=== PATIENT | male | born 1935 | race Caucasian/White ===

== ENCOUNTER 2016-07-13 08:23 | Outpatient (CLI) | payer MEDICARE, OTHER | END 2016-07-13 08:24 | disposition home or self-care (01) | DX: M85.88 Other specified disorders of bone density and structure, other site (principal) ==

== ENCOUNTER 2018-08-13 09:30 | Outpatient (CLI) | payer MEDICARE, OTHER ==
[2018-08-13 13:01] LABS: BASOPHILS % (AUTO) 0.7 %; EOSINOPHILS # (AUTO) 0.1 10^3/uL (0.0-0.7); EOSINOPHILS % (AUTO) 2.6 %; HGB - HEMOGLOBIN 15.3 g/dL (14.0-18.0); LYMPHOCYTES # (AUTO) 1.5 10^3/uL (1.5-3.5); LYMPHOCYTES % (AUTO) 27.1 %; MEAN CORPUSCULAR HEMOGLOBIN 31.2 pg (27.0-31.0); MEAN CORPUSCULAR HGB CONC 32.7 g/dL (32.0-36.0); MEAN CORPUSCULAR VOLUME 95.5 fL (80.0-94.0); MONOCYTES # (AUTO) 0.7 10^3/uL (0.0-1.0); MONOCYTES % (AUTO) 11.6 %; NEUTROPHILS # (AUTO) 3.3 10^3/uL (1.5-6.6); PLT - PLATELET COUNT 138 10^3/uL (130-450); RED BLOOD COUNT 4.89 10^6/uL (4.70-6.10); RED CELL DISTRIBUTION WIDTH 14.7 % (12.0-15.0); WHITE BLOOD COUNT 5.6 x10^3/uL (4.8-10.8)
[2018-08-13 13:23] LABS: ALBUMIN 3.6 g/dL (3.2-5.5); ALBUMIN/GLOBULIN RATIO 1.1 (1.0-2.2); ALKALINE PHOSPHATASE 69 IU/L (42-121); ALT ALANINE AMINOTRANSFERASE 18 IU/L (10-60); AST ASPARTATE AMINOTRANSFERASE 20 IU/L (10-42); BILIRUBIN,TOTAL 0.8 mg/dL (0.2-1.0); BUN - BLOOD UREA NITROGEN 16 mg/dL (6-20); CALCIUM 8.9 mg/dL (8.5-10.3); CARBON DIOXIDE - CO2 25 mmol/L (21-32); CHLORIDE 102 mmol/L (101-111); CHOL/HDL RATIO 3.5 (<5.0); CHOLESTEROL 186 mg/dL; CREATININE 1.1 mg/dL (0.6-1.2); GFR - MDRD 64 (>89); GLUCOSE 106 mg/dL (70-100); HDL CHOLESTEROL 53 mg/dL; LDL CHOLESTEROL,CALCULATED 119 mg/dL; LDL/HDL RATIO 2.2 (<3.6); SODIUM 134 mmol/L (135-145); VLDL CHOLESTEROL 14 mg/dL
== END 2018-08-13 09:31 | disposition home or self-care (01) ==
LOC: LAB.WCP 09:30
PROVIDERS: ATTEND Family Medicine
DX: I10 Essential (primary) hypertension (principal); E78.5 Hyperlipidemia, unspecified; E03.9 Hypothyroidism, unspecified
CPT/HCPCS: 36415; 80053; 80061; 83721; 84443; 85025

== ENCOUNTER 2018-08-27 13:14 | Outpatient (CLI) | payer MEDICARE, OTHER ==
--- NOTE | 2018-08-27 16:21 | XRAY Report ---
Reason: LOWER BACK PAIN Procedure Date: 08/27/2018 Accession Number: [id number] / [id number] Procedure: WCP - Lumbar Spine 2 View CPT Code: FULL RESULT: EXAM: LUMBOSACRAL SPINE RADIOGRAPHY EXAM DATE: 08/27/2018 01:33 PM. CLINICAL HISTORY: Lower back pain. COMPARISONS: LUMBAR SPINE 2 VIEW 05/21/2016 9:35 AM. TECHNIQUE: 2 views. FINDINGS: Alignment: Similar appearance of a subtle thoracolumbar S-shaped scoliosis, dextroconvex curvature centered about T12-L1 followed by a compensatory levoconvex curvature around L4. There is also retrolisthesis of L2 on L3, approximately 4 mm. Bones: Five [id number]-[id number] lumbar vertebral bodies are present. The bones are qualitatively osteopenic; this limits evaluation for underlying fractures or masses. Within these limitations, the previously seen L1 compression fracture has progressed, now 75% loss of height anteriorly. Disks: Degenerative disk changes are seen with marginal osteophytosis, most pronounced at L2-L3 and L3-L4. Facets: Severe facet arthropathy at L5 and moderate facet arthropathy at L3-L4, less pronounced in the upper lumbar spine. Sacroiliac Joints: Unremarkable. Soft Tissues: Normal. The visualized bowel gas pattern is normal. IMPRESSION: Qualitative decrease in bone density with interval progression of the compression fracture at L1. Degenerative changes including scoliosis and facet arthropathy. RADIA
== END 2018-08-27 13:15 | disposition home or self-care (01) ==
LOC: DI.WCP 13:14
PROVIDERS: ATTEND Family Medicine
DX: M51.36 Other intervertebral disc degeneration, lumbar region (principal); M47.9 Spondylosis, unspecified; M41.55 Other secondary scoliosis, thoracolumbar region; M43.16 Spondylolisthesis, lumbar region
CPT/HCPCS: 72100

== ENCOUNTER 2019-06-13 10:40 | Outpatient (CLI) | payer MEDICARE, OTHER ==
--- NOTE | 2019-06-13 11:32 | XRAY Report ---
Reason: neck pain. Procedure Date: 06/13/2019 Accession Number: [id number] / [id number] Procedure: XRN - Cervical Spine 2 View CPT Code: Final Report FULL RESULT: EXAM: CERVICAL SPINE RADIOGRAPHY EXAM DATE: 06/13/2019 11:00 AM. CLINICAL HISTORY: Neck pain. Fell on face 06/12/2019. Extreme neck pain. COMPARISONS: None. TECHNIQUE: 4 views. FINDINGS: Alignment: 3 mm grade 1 anterolisthesis of C3 on C4 and also of C4 on C5 vertebral body. Mild grade 1 retrolisthesis of C5 on C6 vertebral body and also of C6 on C7 vertebral body. Bones: The cervical vertebral bodies and posterior elements are well visualized from the skull base through C7-T1. Anterior margin of C2 is not well demonstrated. Disks: Marked loss of C5-C6 and C6-C7 disk space height. Moderate loss of C4-C5 disk space height. Mild loss of C2-C3 disk space height. Facets: Normally aligned. Soft Tissues: Potential soft tissue swelling anterior to C2. IMPRESSION: 1. Advanced lower cervical spine degenerative changes. 2. Anterior margin of C2 is not well demonstrated. Potential adjacent soft tissue swelling. Recommend CT to further assess. RADIA The call report notification system was initiated by Dr. Kavon Monae at 11:26 AM on 06/13/2019. The above call report findings were discussed with TANJA Ruggiero by Dr. Kavon Monae at 11:30 AM on 06/13/2019.
== END 2019-06-13 10:41 | disposition home or self-care (01) ==
LOC: DI.N 10:40
PROVIDERS: ATTEND Family Medicine
DX: M50.321 Other cervical disc degeneration at C4-C5 level (principal)
CPT/HCPCS: 72040

== ENCOUNTER 2019-06-13 11:55 | Outpatient (CLI) | payer MEDICARE, OTHER | END 2019-06-13 11:56 | disposition critical access hospital (66) | LOC: EMS 11:55 | PROVIDERS: ATTEND Surgery | DX: M54.2 Cervicalgia (principal); S00.12XA Contusion of left eyelid and periocular area, initial encounter; S00.11XA Contusion of right eyelid and periocular area, initial encounter; W18.30XA Fall on same level, unspecified, initial encounter | CPT/HCPCS: A0425; A0429 ==

== ENCOUNTER 2019-06-13 12:31 | Emergency (ER) | payer MEDICARE, OTHER ==
--- NOTE | 2019-06-13 12:40 | ED Physician Documentation ---
PD HPI HEAD INJURY - Stated complaint Stated Complaint: GLF - History obtained from History obtained from: Patient, EMS - History of Present Illness Mechanism of head injury: Fell (About 5:00 last night this 84-year-old gentleman who is anticoagulated with Eliquis for atrial fibrillation had a trip and fall going out to his shed landing face first on the ground. There was no loss of consciousness. He was doing okay, but this morning had more severe neck pain especially with movement and went to the clinic where his x-ray of his neck was done concerning for a possible C2 fracture and referred here in cervical spine precautions via EMS for further evaluation and treatment. He denies injuries other than the head and neck. He denies pain medication right now.) Review of Systems Constitutional: denies: Fever, Chills Eyes: reports: Reviewed and negative Nose: reports: Reviewed and negative Throat: reports: Reviewed and negative PD PAST MEDICAL HISTORY - Past Medical History Cardiovascular: High cholesterol, Atrial fibrillation Endocrine/Autoimmune: HyPOthyroidism GI: GERD : None HEENT: None Musculoskeletal: Fibromyalgia Derm: None - Past Surgical History Past Surgical History: Yes General: Hiatal hernia repair Ortho: Hip replacement - Present Medications Home Medications: Ambulatory Orders Medication Instructions Recorded Confirmed Amoxicillin/Potassium Clav 1 each PO BID #20 tablet 05/21/16 [Augmentin 875-125 Tablet] Benazepril HCl 0 mg ORAL BID 05/21/16 05/21/16 Carvedilol 25 mg ORAL BID 05/21/16 05/21/16 HYDROcod/ACETAM 5/325 [[place] 5/325] 1 - 2 ea PO Q6H PRN #15 tablet 05/21/16 Levothyroxine [Synthroid] 25 mcg ORAL DAILY 05/21/16 05/21/16 Warfarin [Coumadin] 5 mg ORAL DAILY 05/21/16 05/21/16 - Allergies Allergies/Adverse Reactions: Allergies Allergy/AdvReac Type Severity Reaction Status Date / Time No Known Drug Allergies Allergy Verified 06/13/19 12:43 - Social History Does the pt smoke?: No Smoking Status: Never smoker Does the pt drink ETOH?: Yes Does the pt have substance abuse?: No - Immunizations Immunizations are current?: Yes PD ED PE NORMAL - Vitals Vital signs reviewed: Yes - General General: Alert and oriented X 3, No acute distress, Other (Hard of hearing) - HEENT HEENT: PERRL, EOMI, Other (Bilateral periorbital ecchymosis and some dried blood in the left nares without septal hematoma or bony tenderness of the face) - Neck Neck: No bony TTP (But maintained in C-spine precautions given advanced age and abnormal x-ray in the clinic.) - Cardiac Cardiac: No murmur, Other (Irregularly irregular) - Respiratory Respiratory: No respiratory distress, Clear bilaterally - Abdomen Abdomen: Soft, Non tender - Back Back: No CVA TTP, No spinal TTP - Derm Derm: Normal color, Warm and dry - Extremities Extremities: No edema, No calf tenderness / cord - Neuro Neuro: Alert and oriented X 3, No motor deficit, No sensory deficit, Normal speech Results - Vitals Vitals: Vital Signs - 24 hr 06/13/19 06/13/19 12:38 13:43 Temperature 36.6 C Heart Rate 73 77 Respiratory 20 14 Rate Blood Pressure 164/109 H 159/85 H O2 Saturation 100 96 Oxygen O2 Source Room air - Labs Labs: Laboratory Tests 06/13/19 06/13/19 06/13/19 12:45 12:45 12:45 WBC 11.4 H RBC 5.17 Hgb 16.5 Hct 48.6 MCV 94.0 MCH 31.9 H MCHC 34.0 RDW 13.3 Plt Count 150 MPV 11.1 Neut # (Auto) 8.6 H Lymph # (Auto) 1.4 L Fountain # (Auto) 1.3 H Eos # (Auto) 0.0 Baso # (Auto) 0.0 Absolute Nucleated RBC 0.00 Nucleated RBC % 0.0 PT 14.0 H INR 1.2 Sodium 137 Potassium 3.8 Chloride 100 L Carbon Dioxide 26 Anion Gap 11.0 BUN 21 H Creatinine 1.2 Estimated GFR (MDRD) 58 L Glucose 118 H Calcium 9.4 Total Bilirubin 1.3 H AST 19 ALT 19 Alkaline Phosphatase 66 Total Protein 7.5 Albumin 3.9 Globulin 3.6 Albumin/Globulin Ratio 1.1 Lipase 33 - Rads (name of study) CT Head Radiology: EMP read contemporaneously (Nasal frx, no ICH) Ct Cspine Radiology: EMP read contemporaneously (Horizontally oriented fractures of the base of the odontoid with 8.5 mm of posterior displacement of the odontoid with respect to the C2 vertebral body worrisome for impingement at the C2 level with canal diameter of 8.9 mm. Otherwise degenerative changes.) CT T spine Radiology: EMP read contemporaneously (L1 anterior 2 column burst frx with 6.2 mm retropulsion. Probably old.) PD MEDICAL DECISION MAKING - ED course ED course: 84-year-old gentleman anticoagulated on Eliquis had a fall last night and concerning x-ray in the clinic for C2 fracture. Strangely he is not really tender but he is neuro intact. Imaging is shown. Accepted by Dr. Rogers to go to [place] via the ER for definitive management of an unstable C2 fracture. He is stable for transport to a higher level of care for definitive fixation of his cervical spine fracture and neurosurgical management. [place] were completed. Departure - Departure Disposition: 02 Transfer Acute Care Hosp Clinical Impression: Concussion Qualifiers: Encounter type: initial encounter Loss of consciousness presence/duration: without LOC Qualified Code(s): S06.0X0A - Concussion without loss of consciousness, initial encounter Closed fracture of cervical vertebra Qualifiers: Encounter type: initial encounter Cervical vertebra fracture level: C2 Fracture morphology: unspecified fracture morphology Fracture alignment: displaced Qualified Code(s): S12.100A - Unspecified displaced fracture of second cervical vertebra, initial encounter for closed fracture Fracture of nasal bone Qualifiers: Encounter type: initial encounter Fracture type: closed Qualified Code(s): S02.2XXA - Fracture of nasal bones, initial encounter for closed fracture Injury of head and neck Qualifiers: Encounter type: initial encounter Qualified Code(s): S09.90XA - Unspecified injury of head, initial encounter Injury of back Qualifiers: Encounter type: initial encounter Qualified Code(s): S39.92XA - Unspecified injury of lower back, initial encounter Condition: Serious
[2019-06-13 12:55] LABS: BASOPHILS % (AUTO) 0.4 %; EOSINOPHILS % (AUTO) 0.4 %; HGB - HEMOGLOBIN 16.5 g/dL (14.0-18.0); LYMPHOCYTES # (AUTO) 1.4 10^3/uL (1.5-3.5); LYMPHOCYTES % (AUTO) 12.2 %; MEAN CORPUSCULAR HEMOGLOBIN 31.9 pg (27.0-31.0); MEAN PLATELET VOLUME 11.1 fL (7.4-11.4); MONOCYTES # (AUTO) 1.3 10^3/uL (0.0-1.0); MONOCYTES % (AUTO) 11.3 %; NEUTROPHILS # (AUTO) 8.6 10^3/uL (1.5-6.6); NEUTROPHILS % (AUTO) 75.3 %; PLT - PLATELET COUNT 150 10^3/uL (130-450); RED BLOOD COUNT 5.17 10^6/uL (4.70-6.10); RED CELL DISTRIBUTION WIDTH 13.3 % (12.0-15.0); WHITE BLOOD COUNT 11.4 x10^3/uL (4.8-10.8)
[2019-06-13 13:06] LABS: INR 1.2 (0.8-1.2)
[2019-06-13 13:07] LABS: ALBUMIN 3.9 g/dL (3.2-5.5); ALBUMIN/GLOBULIN RATIO 1.1 (1.0-2.2); BILIRUBIN,TOTAL 1.3 mg/dL (0.2-1.0); CALCIUM 9.4 mg/dL (8.5-10.3); CREATININE 1.2 mg/dL (0.6-1.2); TOTAL PROTEIN 7.5 g/dL (6.7-8.2)
--- NOTE | 2019-06-13 13:47 | CT Report ---
Reason: head injury Procedure Date: 06/13/2019 Accession Number: [id number] / [id number] Procedure: CT - HEAD WO CPT Code: Final Report FULL RESULT: EXAM: CT HEAD EXAM DATE: 06/13/2019 12:58 PM. CLINICAL HISTORY: Trauma, pain. COMPARISON: HEAD W/O 05/21/2016 10:02 AM. TECHNIQUE: Multiaxial CT images were obtained from the foramen magnum to the vertex. Reformats: Sagittal and coronal. IV contrast: None. In accordance with CT protocol optimization, one or more of the following dose reduction techniques were utilized for this exam: automated exposure control, adjustment of mA and/or KV based on patient size, or use of iterative reconstructive technique. FINDINGS: Parenchyma: No intraparenchymal hemorrhage. No evidence of mass, midline shift, or CT findings of acute infarction. Reece-white differentiation is distinct. Diffuse chronic microangiopathic white matter changes. Extraaxial Spaces: Normal for age. No subdural or epidural collections. Ventricles: The ventricles and cortical sulci are enlarged, consistent with age-related tissue loss. Sinuses and orbits: Air-fluid level in left maxillary sinus and left sphenoid sinus. Fluid and thickening in ethmoid air cells and left frontal sinus. Bones: Comminuted fracture of the nose including nasal alae. Other: Soft tissue swelling. IMPRESSION: 1. Nasal fracture with bleeding into the sinuses. 2. Generalized age-related cortical atrophic changes without evidence of acute intracranial abnormality. RADIA
--- NOTE | 2019-06-13 13:54 | CT Report ---
Reason: neck frx Procedure Date: 06/13/2019 Accession Number: [id number] / [id number] Procedure: CT - THORACIC SPINE WO CPT Code: Final Report FULL RESULT: EXAM: CT THORACIC SPINE WITHOUT CONTRAST EXAM DATE: 06/13/2019 01:14 PM. CLINICAL HISTORY: Neck fracture. COMPARISONS: CHEST 2 VIEW PA/LAT 05/21/2016 9:35 AM images and report from [facility]. TECHNIQUE: Thin-section axial images were acquired of the thoracic spine from C7 to L1 without contrast. Post-processing: Coronal and sagittal reformats. Other: None. In accordance with CT protocol optimization, one or more of the following dose reduction techniques were utilized for this exam: automated exposure control, adjustment of mA and/or KV based on patient size, or use of iterative reconstructive technique. FINDINGS: Alignment: 54 degrees of thoracic kyphosis angle. 21 degrees dextroscoliosis between T4-T5 and T12-L1. Bones: L1 shows an anterior 2-column burst type compression fracture with 6.2 mm of posterior retropulsion. Anterior bridging marginal osteophytes seen at T4-T5, T5-T6, T6-T7, T7-T8 and T8-T9. Disk Levels/Facets: Multilevel facet arthropathy. Multilevel disk space height loss. These are chronic changes. C7-T1: Unremarkable. T1-T2: Unremarkable. T2-T3: Unremarkable. T3-T4: Unremarkable. T4-T5: Unremarkable. T5-T6: Unremarkable. T6-T7: Unremarkable. T7-T8: Unremarkable. T8-T9: Unremarkable. T9-T10: Unremarkable. T10-T11: Unremarkable. T11-T12: Unremarkable. T12-L1: Unremarkable. Musculature: Normal. No fatty atrophy. Other: The visualized lungs, mediastinum, and abdominal cavity are unremarkable. IMPRESSION: 1. L1 shows anterior 2-column superior and inferior burst type compression injury with about 6.2 mm retropulsion. Loss of at least 9% of vertebral body height. 2. Multilevel degenerative changes. No worrisome central or foraminal stenosis in the thoracic spine. RADIA
--- NOTE | 2019-06-13 13:59 | CT Report ---
Reason: facial inj Procedure Date: 06/13/2019 Accession Number: [id number] / [id number] Procedure: CT - MAXILLOFACIAL WO CPT Code: Final Report FULL RESULT: EXAM: CT MAXILLOFACIAL WITHOUT CONTRAST EXAM DATE: 06/13/2019 01:14 PM. CLINICAL HISTORY: Fall with cervical spine fracture and facial injury. COMPARISONS: HEAD W/O 06/13/2019 12:53 PM CERVICAL SPINE W/O 06/13/2019 12:53 PM. TECHNIQUE: Thin-section axial images were acquired of the face without contrast. Post-processing: Coronal and sagittal reformats. Other: None. In accordance with CT protocol optimization, one or more of the following dose reduction techniques were utilized for this exam: automated exposure control, adjustment of mA and/or KV based on patient size, or use of iterative reconstructive technique. FINDINGS: Soft Tissue: There is soft tissue swelling and subcutaneous hemorrhage anterior to the nasal bone. There is soft tissue swelling anterior to the mandible. Orbits: Symmetric and unremarkable. Bones: There is a comminuted fracture of the nasal bone. There is a buckling fracture of the bony nasal septum. There is fluid in the left nasal cavity. Zygoma appears intact. Maxilla and mandible appear intact without fracture. Temporomandibular Joints: The temporomandibular joints are symmetric and normally located. Sinuses: There is layering fluid in the left maxillary sinus and left frontal sinus. There is fluid in secretion in the ethmoid sinuses. There is small fluid in the left sphenoid sinus. Mastoid sinuses appear clear. Other: There is a cervical spine fracture which is described in separate report. IMPRESSION: 1. Comminuted anterior and posterior nasal bone fracture. 2. Fluid in the nasal cavity, ethmoid sinuses, left frontal, maxillary and sphenoid sinuses which is likely related to trauma and hemorrhage. RADIA
--- NOTE | 2019-06-13 14:00 | CT Report ---
Reason: neck injury Procedure Date: 06/13/2019 Accession Number: [id number] / [id number] Procedure: CT - CERVICAL SPINE WO CPT Code: Final Report FULL RESULT: EXAM: CT CERVICAL SPINE WITHOUT CONTRAST DATE: 06/13/2019 12:58 PM. HISTORY: Neck injury. COMPARISONS: CERVICAL SPINE W/O 06/13/2019 12:53 PM CERVICAL SPINE 2 VIEW 06/13/2019 11:06 AM HEAD W/O 05/21/2016 10:02 AM images and report from [facility]. TECHNIQUE: Thin-section axial images were acquired of the cervical spine without contrast. Post-processing: Coronal and sagittal reformats. Other: None. In accordance with CT protocol optimization, one or more of the following dose reduction techniques were utilized for this exam: automated exposure control, adjustment of mA and/or KV based on patient size, or use of iterative reconstructive technique. FINDINGS: Alignment: No scoliosis or spondylolisthesis. Bones: There is a horizontally oriented fracture through the base of the odontoid. There is 8.5 mm of posteriorly displacement of the odontoid with respect to the C2 vertebral body. Series 2 image 48. There is associated 1-1.2 cm of posterior subluxation of both left and right lateral masses of C1 with respect to the articular surface of C2. Series 2 and 56. Series 2 image 41. Interspace Levels/Facets: C1-C2: Anterior arthritic changes. Base of C2 fracture as described. C2-C3: Disk space height loss, marginal arthrosis, severe left foraminal stenosis. C3-C4: Disk space height loss, left-sided facet arthropathy. Severe left foraminal stenosis. Central canal and right neural foramina are normal. C4-C5: Disk space height loss, prominent facets, no stenosis. C5-C6: Marked disk space height loss. Moderate central stenosis and severe bilateral foraminal stenosis. Prominent facets. C6-C7: Disk space height loss, mild central stenosis, severe bilateral foraminal stenosis secondary to arthritic changes at the facets and uncovertebral joints. C7-T1: No disk space height loss otherwise unremarkable. Musculature: Moderate fatty atrophy of the multifidus muscle is present. Other: The paravertebral and prevertebral soft tissues are unremarkable. The lung apices are clear. IMPRESSION: 1. There is a horizontally oriented fractures at the base of the odontoid with 8.5 mm posterior displacement of the odontoid with respect to the C2 vertebral body. This is worrisome for impingement at the C2 level, AP diameter of the canal is 8.9 mm. Series 2 image 47. 2. As described above, multilevel degenerative changes seen elsewhere, most pronounced at C5-C6 and C6-C7. RADIA The critical result notification system was initiated by Dr. Raciel Spears at 01:59 PM on 06/13/2019. The above critical result findings were discussed with Vaibhav Hernandez by Dr. Raciel Spears at 02:03 PM on 06/13/2019.
--- NOTE | 2019-06-13 14:08 | CT Report ---
Reason: neck frx Procedure Date: 06/13/2019 Accession Number: [id number] / [id number] Procedure: CT - LUMBAR SPINE WO CPT Code: Final Report FULL RESULT: EXAM: CT LUMBAR SPINE WITHOUT CONTRAST EXAM DATE: 06/13/2019 01:14 PM. CLINICAL HISTORY: Neck fracture. A ground-level fall last night. COMPARISONS: None. TECHNIQUE: Thin-section axial images were acquired of the lumbar spine from T12 to S1 without contrast. Post-processing: Coronal and sagittal reformats. Other: None. In accordance with CT protocol optimization, one or more of the following dose reduction techniques were utilized for this exam: automated exposure control, adjustment of mA and/or KV based on patient size, or use of iterative reconstructive technique. FINDINGS: Alignment: The lumbar lordosis angle is 60.1 degrees. Levoscoliosis between L1-L2 and L5-S1 measures 18.8 degrees. Bones: Five ctg-plr-spfgney lumbar vertebral bodies are present. L1 shows an anterior 2-column burst-type compression fracture with loss of 90% of vertebral body height and about 7 mm of posterior retropulsion. Fracture line does not appear to involve the posterior elements. Disk Levels/Facets: T12-L1: Unremarkable. L1-L2: Broad-based disk bulge is present. Mild bilateral foraminal stenosis, no central stenosis. L2-L3: Broad-based disk bulge. Prominent facets. No central or foraminal stenosis. L3-L4: Broad-based disk bulge, hypertrophic facets and ligamentum flavum. Moderate to severe central stenosis, chronic. L4-L5: Broad-based disk bulge is seen. Hypertrophic facets. Severe central stenosis. Mild bilateral foraminal stenosis. L5-S1: Mild right broad-based disk bulge. Prominent facets. Musculature: Mild fatty atrophy of the multifidus muscle. Other: Anterior fusion of the left SI joint. IMPRESSION: 1. Lumbar lordosis is 60.1 degrees. Levoscoliosis between L1-L2 and L5-S1 is 18.8 degrees. 2. L1 shows an anterior 2-column burst-type compression fracture with loss of 90% of vertebral body height and about 7 mm posterior retropulsion. 3. L3-L4 shows moderate to severe central stenosis, likely chronic. No foraminal narrowing. 4. L4-L5 shows a broad-based bulge. Severe central stenosis and mild bilateral foraminal stenosis. 5. L5-S1 shows a mild right broad-based bulge. Prominent facets. No stenosis. RADIA
[2019-06-13 15:32] VITALS: BP 172/96
== END 2019-06-13 16:03 | disposition short-term general hospital (02) ==
LOC: EDUNIT# → ED 12:31
DX: S06.0X0A Concussion without loss of consciousness, initial encounter (principal); S12.110A Anterior displaced Type II dens fracture, initial encounter for closed fracture; S02.2XXA Fracture of nasal bones, initial encounter for closed fracture; S32.011A Stable burst fracture of first lumbar vertebra, initial encounter for closed fracture; S39.92XA Unspecified injury of lower back, initial encounter; S00.12XA Contusion of left eyelid and periocular area, initial encounter; S00.11XA Contusion of right eyelid and periocular area, initial encounter; W01.0XXA Fall on same level from slipping, tripping and stumbling without subsequent striking against object, initial encounter; Y93.01 Activity, walking, marching and hiking; Y92.008 Other place in unspecified non-institutional (private) residence as the place of occurrence of the external cause; Z79.01 Long term (current) use of anticoagulants; M50.321 Other cervical disc degeneration at C4-C5 level
CPT/HCPCS: 36415; 70450; 70486; 72040; 72125; 72128; 72131; 80053; 83690; 85025; 85610; 99284; 99285

== ENCOUNTER 2019-06-13 16:06 | Outpatient (CLI) | payer MEDICARE, OTHER | END 2019-06-13 16:07 | disposition short-term general hospital (02) | LOC: EMS 16:06 | PROVIDERS: ATTEND Surgery | DX: S12.100A Unspecified displaced fracture of second cervical vertebra, initial encounter for closed fracture (principal); W19.XXXA Unspecified fall, initial encounter | CPT/HCPCS: A0425; A0428 ==

== ENCOUNTER 2019-11-26 20:00 | Emergency (ER) | payer MEDICARE, OTHER ==
[2019-11-26 20:09] VITALS: BP 151/86
--- NOTE | 2019-11-26 20:47 | ED Physician Documentation ---
History of Present Illness - Stated complaint Stated Complaint: CATHETER LEAKING/Not draining - Chief complaint Chief Complaint: Abd Pain - History obtained from History obtained from: Patient, Family - History of Present Illness Timing: Prior to arrival, Today Pain level max: 3 Pain level now: 3 - Additonal information Additional information: 84-year-old male presents to the emergency department with a urinary catheter that is no longer flowing urine. Catheter has been in place for approximately 3 weeks. Patient denies fevers. Patient however feels uncomfortable in his lower suprapubic area over the course of the last few hours. Patient is scheduled to see his urologist tomorrow morning for procedure on his bladder related to newly diagnosed bladder cancer. Review of Systems Constitutional: denies: Fever, Chills Cardiac: denies: Chest pain / pressure Respiratory: denies: Dyspnea, Cough GI: reports: Abdominal Pain. denies: Nausea, Vomiting, Diarrhea : reports: Dysuria (indwelling wiseman catheter for 3 weeks), Unable to Void Skin: reports: Rash. denies: Lesions Neurologic: denies: Generalized weakness, Focal weakness PD PAST MEDICAL HISTORY - Past Medical History Cardiovascular: High cholesterol, Atrial fibrillation Endocrine/Autoimmune: HyPOthyroidism GI: GERD : None HEENT: None Musculoskeletal: Fibromyalgia Derm: None - Past Surgical History Past Surgical History: Yes General: Hiatal hernia repair Ortho: Hip replacement - Present Medications Home Medications: Ambulatory Orders Medication Instructions Recorded Confirmed Carvedilol 6.25 mg ORAL BID 05/21/16 11/26/19 Levothyroxine [Synthroid] 50 mcg ORAL DAILY 05/21/16 11/26/19 Apixaban [Eliquis] 5 mg DAILY 11/26/19 11/26/19 - Allergies Allergies/Adverse Reactions: Allergies Allergy/AdvReac Type Severity Reaction Status Date / Time No Known Drug Allergies Allergy Verified 11/26/19 20:08 - Social History Does the pt smoke?: No Smoking Status: Never smoker Does the pt drink ETOH?: Yes Does the pt have substance abuse?: No - Immunizations Immunizations are current?: Yes PD ED PE NORMAL - Vitals Vital signs reviewed: Yes - General General: Alert and oriented X 3, No acute distress, Well developed/nourished - HEENT HEENT: Atraumatic - Cardiac Cardiac: RRR, No murmur - Respiratory Respiratory: No respiratory distress - Abdomen Abdomen: Normal bowel sounds - Male Male : Other (indwelling 16 fr catheter noted. No urine draining from catheter. Bladder scan showed 300 ml residual volume. attempted to gently flush catheter with sterile salien, unable to flush wiseman catheter) Results - Vitals Vitals: Vital Signs - 24 hr 11/26/19 20:04 Temperature 36.5 C Heart Rate 85 Respiratory 16 Rate Blood Pressure 151/86 H O2 Saturation 98 Oxygen O2 Source Room air PD MEDICAL DECISION MAKING - ED course ED course: 84 year old male presents with urinary catheter obstruction of his wiseman that has developed over the course of this afternoon. - catheter was not draining urine and we could not flush the wiseman, therefore a sterile 16 kinyarwanda catheter was replaced in sterile fashion - immediately 300ml of yellow urine and sediment drained - will send urine for cx. given presence of indwelling catheter I expect an abnormal UA, therefore will not treat unless urien cx positive - pt felt markedly improved once the catheter was replaced and is stable for discharge Departure - Departure Disposition: 01 Home, Self Care Clinical Impression: Obstruction of indwelling urinary catheter Qualifiers: Encounter type: initial encounter Qualified Code(s): T83.091A - Other mechanical complication of indwelling urethral catheter, initial encounter Condition: Stable Comments: Mario Alberto, I am glad you are feeling better. We replaced your catheter. It is normal to have sediment (white stuff) drain after a catheter has been in place for a while. I am sending the urine for a culture ot make sure no infection is present. Do not miss follow up with your urologist tomorrow
== END 2019-11-26 20:50 | disposition home or self-care (01) ==
LOC: ED 20:00
DX: T83.091A Other mechanical complication of indwelling urethral catheter, initial encounter (principal); Y84.6 Urinary catheterization as the cause of abnormal reaction of the patient, or of later complication, without mention of misadventure at the time of the procedure; I48.91 Unspecified atrial fibrillation; Z79.01 Long term (current) use of anticoagulants
CPT/HCPCS: 81001; 87086; 87181; 99283; 99284

== ENCOUNTER 2020-10-13 08:00 | Outpatient (CLI) | payer MEDICARE, OTHER ==
[2020-10-13 18:29] LABS: BASOPHILS % (AUTO) 0.5 %; EOSINOPHILS % (AUTO) 0.2 %; HCT - HEMATOCRIT 50.4 % (42.0-52.0); HGB - HEMOGLOBIN 16.2 g/dL (14.0-18.0); LYMPHOCYTES % (AUTO) 23.1 %; MEAN CORPUSCULAR HEMOGLOBIN 30.6 pg (27.0-31.0); MEAN CORPUSCULAR HGB CONC 32.1 g/dL (32.0-36.0); MEAN CORPUSCULAR VOLUME 95.1 fL (80.0-94.0); MEAN PLATELET VOLUME 11.9 fL (7.4-11.4); MONOCYTES # (AUTO) 0.8 10^3/uL (0.0-1.0); MONOCYTES % (AUTO) 9.2 %; NEUTROPHILS # (AUTO) 5.8 10^3/uL (1.5-6.6); NEUTROPHILS % (AUTO) 66.7 %; PLT - PLATELET COUNT 143 10^3/uL (130-450); RED CELL DISTRIBUTION WIDTH 13.6 % (12.0-15.0); WHITE BLOOD COUNT 8.8 x10^3/uL (4.8-10.8)
[2020-10-13 19:33] LABS: ALBUMIN 3.9 g/dL (3.2-5.5); ALBUMIN/GLOBULIN RATIO 1.1 (1.0-2.2); ALKALINE PHOSPHATASE 84 IU/L (42-121); ALT ALANINE AMINOTRANSFERASE 22 IU/L (10-60); AST ASPARTATE AMINOTRANSFERASE 20 IU/L (10-42); BUN - BLOOD UREA NITROGEN 17 mg/dL (6-20); CALCIUM 9.5 mg/dL (8.5-10.3); CARBON DIOXIDE - CO2 26 mmol/L (21-32); CHLORIDE 100 mmol/L (101-111); CHOL/HDL RATIO 3.9 (<5.0); CHOLESTEROL 226 mg/dL; CREATININE 1.1 mg/dL (0.6-1.2); GFR - MDRD 64 (>89); GLUCOSE 116 mg/dL (70-100); HDL CHOLESTEROL 58 mg/dL; LDL CHOLESTEROL,CALCULATED 151 mg/dL; LDL/HDL RATIO 2.6 (<3.6); POTASSIUM 4.2 mmol/L (3.5-5.0); SODIUM 134 mmol/L (135-145); TOTAL PROTEIN 7.5 g/dL (6.7-8.2); TRIGLYCERIDES 86 mg/dL; VLDL CHOLESTEROL 17 mg/dL
[2020-10-13 19:47] LABS: THYROID STIMULATING HORMONE 1.63 uIU/mL (0.34-5.60)
== END 2020-10-13 23:59 | disposition home or self-care (01) ==
LOC: LAB.WCP 08:00
PROVIDERS: ATTEND Internal Medicine
DX: I10 Essential (primary) hypertension (principal); E03.9 Hypothyroidism, unspecified
CPT/HCPCS: 36415; 80053; 80061; 83721; 84443; 85025

== ENCOUNTER 2021-10-10 19:37 | Emergency (ER) | payer MEDICARE, OTHER ==
--- OUTSIDE RECORDS SUMMARY | 2021-10-10 19:54 | EXTERNAL MEDICAL SUMMARY RPT | Continuity of Care Document ---
:1935 Author Organization [facility] Address [address] [place] [address] Phone Care Team Providers Name Role Phone Bahman Unavailable Unavailable Allergies No information. Encounters No information. Medications date description facility [id number] Dutasteride 0.5 MG Oral Capsule [facility] [id number] Amoxicillin 500 MG Oral Capsule [facility] Problems date description facility [id number] Dysuria [facility] Procedures date description facility [id number] General [facility] [id number] Finding [facility] [id number] Diagnosis [facility] [id number] [facility] Results No information. Vital Signs date measurement value source [id number] respiration_rate 16 /min [id number] heart_rate 75 /min [id number] BP_systolic 151 mm[Hg] 20210825 BP_diastolic 83 mm[Hg]
--- NOTE | 2021-10-10 19:57 | ED Physician Documentation ---
History of Present Illness - Stated complaint Stated Complaint: head lac,fall - Chief complaint Chief Complaint: Trauma Hd/Nk - History obtained from History obtained from: Patient, Family - History of Present Illness Timing: Today Pain level max: 0 Pain level now: 0 - Additonal information Additional information: Patient is an 86-year-old male who presents to the emergency department after a trip and fall. Sustained a laceration to the right side of the head. Patient is on Eliquis. The fall was around 4 hours prior to arrival. Had has bleeding to the right forehead. Unknown last tetanus shot. No loss of consciousness. No vomiting. Fell on gravel. He states that he noticed the bleeding and swelling to the forehead when he went to take a shower after the fall. No neck or back pain. No vomiting. No numbness or tingling. Review of Systems Constitutional: denies: Fever, Chills GI: denies: Vomiting, Diarrhea : denies: Dysuria Skin: denies: Rash Musculoskeletal: denies: Neck pain, Back pain Neurologic: denies: Headache PD PAST MEDICAL HISTORY - Past Medical History Past Medical History: Yes Cardiovascular: High cholesterol, Atrial fibrillation Endocrine/Autoimmune: HyPOthyroidism GI: GERD : None HEENT: None Musculoskeletal: Fibromyalgia Derm: None - Past Surgical History Past Surgical History: Yes General: Hiatal hernia repair Ortho: Hip replacement - Present Medications Home Medications: Ambulatory Orders Medication Instructions Recorded Confirmed Carvedilol 6.25 mg ORAL BID 05/21/16 11/26/19 Levothyroxine [Synthroid] 50 mcg ORAL DAILY 05/21/16 11/26/19 Apixaban [Eliquis] 5 mg DAILY 11/26/19 11/26/19 - Allergies Allergies/Adverse Reactions: Allergies Allergy/AdvReac Type Severity Reaction Status Date / Time hazelnut Allergy Unknown Verified 10/10/21 19:40 - Living Situation Living Situation: reports: With family Living Arrangement: reports: At home - Social History Does the pt smoke?: No Smoking Status: Never smoker Does the pt drink ETOH?: Yes Does the pt have substance abuse?: No - Immunizations Immunizations are current?: Yes - POLST Patient has POLST: No PD ED PE NORMAL - Vitals Vital signs reviewed: Yes - General General: Alert and oriented X 3, No acute distress, Well developed/nourished - HEENT HEENT: PERRL, Moist mucous membranes, Other (Large hematoma to the right forehead with bleeding. Several abrasions. No significant lacerations. Has periorbital swelling in the right periorbital area with ecchymosis. Otherwise atraumatic exam of the face and head.) - Neck Neck: Supple, no meningeal sign, No bony TTP, Other (History of cervical spine fusion) - Cardiac Cardiac: RRR, Strong equal pulses - Respiratory Respiratory: No respiratory distress, Clear bilaterally - Abdomen Abdomen: Soft, Non tender, Non distended - Back Back: No CVA TTP, No spinal TTP - Derm Derm: Warm and dry - Extremities Extremities: No edema, No calf tenderness / cord, Other (Mild abrasion to the right knee. No bleeding. No bony tenderness. Full range of motion.) - Neuro Neuro: Alert and oriented X 3, lunchroom attendant 2-12 intact, No motor deficit, No sensory deficit, Normal speech Eye Opening: Spontaneous Motor: Obeys Commands Verbal: Oriented GCS Score: 15 - Psych Psych: Normal mood, Normal affect Results - Vitals Vitals: Vital Signs - 24 hr 10/10/21 10/10/21 19:40 21:58 Temperature 36.7 C Heart Rate 95 85 Respiratory 18 18 Rate Blood Pressure 149/87 H 154/94 H O2 Saturation 100 98 Oxygen O2 Source Room air - Rads (name of study) Head CT Radiology: Final report received, EMP read contemporaneously, See rad report Maxillofacial CT Radiology: Final report received, EMP read contemporaneously, See rad report Cervical spine CT Radiology: Final report received, EMP read contemporaneously, See rad report PD MEDICAL DECISION MAKING - ED course Complexity details: reviewed results, re-evaluated patient, considered differential, d/w patient, d/w family ED course: No acute findings on CT scan of the head, maxillofacial and cervical spines. Wounds were cleansed and bandaged. No further bleeding. Tdap given. No in tracranial hemorrhage. No facial fractures. No skull fractures. Cervical spine hardware is intact. Neurovascularly intact. Ambulating without difficulty. Declines pain medication here or for home. Warnings of infection and instructions on wound care given at bedside. Patient and family counseled regarding signs and symptoms for which I believe and urgent re-evaluation would be necessary. Patient with good understanding of and agreement to plan and is comfortable going home at this time This document was made in part using voice recognition software. While efforts are made to proofread this document, sound alike and grammatical errors may occur. Departure - Departure Disposition: 01 Home, Self Care Clinical Impression: Scalp hematoma Qualifiers: Encounter type: initial encounter Qualified Code(s): S00.03XA - Contusion of scalp, initial encounter Facial abrasion Qualifiers: Encounter type: initial encounter Qualified Code(s): S00.81XA - Abrasion of other part of head, initial encounter Condition: Good Instructions: ED Abrasion, ED Head Injury Closed Follow-Up: Kavon Redding MD [Primary Care Provider] - Within 1 week Comments: Your CT scans of your head, face and neck do not show any acute abnormalities. Keep the wounds clean. Return if you worsen. Return if you notice redness, swelling or drainage from the wound. You were given a tetanus shot today. Discharge Date/Time: 10/10/21 21:59
--- NOTE | 2021-10-10 20:25 | CT Report ---
PROCEDURE: HEAD WO INDICATIONS: fall, head/neck injury TECHNIQUE: Noncontrast 4.5 mm thick angled axial sections acquired from the foramen magnum to the vertex. For r adiation dose reduction, the following was used: automated exposure control, adjustment of mA and/or kV according to patient size. COMPARISON: Maxillofacial CT 06/13/2019, head CT 05/21/2016. FINDINGS: Image quality: Good. CSF spaces: Basal cisterns are patent. No extra-axial fluid collections. Ventricles are normal in size and shape. Brain: No midline shift. No intracranial masses or hemorrhage. No area of hypodensity in a vascula r distribution to suggest acute infarction. 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 Intracranial atherosclerotic calcifications. Age-related parenchy mal loss. Skull and face: Right forehead scalp hematoma. No underlying fracture. No suspicious lesion. Prior n rajat bone fracture. Probable prior injury to the right maxillary sinus. Sinuses: Trace mucosal thickening in the right maxillary sinus. Visualized sinuses and mastoids are otherwise clear. IMPRESSION: No acute intracranial abnormality. Right forehead scalp hematoma. No underlying fracture. Chronic microvascular ischemic disease. Reviewed by: Chris Burgos MD on 10/10/2021 8:24 PM PDT Approved by: Chris Burgos MD on 10/10/2021 8:24 PM PDT Station ID: [id number]
[2021-10-10] MEDS ORDERED: LIDOCAINE OINTMENT 5% 35.44 GM TUBE TOP STA (20:26)
--- NOTE | 2021-10-10 20:31 | CT Report ---
PROCEDURE: CERVICAL SPINE WO INDICATIONS: fall, head/neck injury TECHNIQUE: Noncontrast 3 mm thick sections acquired from the skull base to the T4 level. Sagittal and coronal r eformats were then constructed. For radiation dose reduction, the following was used: automated exp osure control, adjustment of mA and/or kV according to patient size. COMPARISON: CT cervical spine 06/13/2019. FINDINGS: Image quality: Excellent. Bones: No acute fractures or dislocations. Visualized superior ribs are intact. Prior dens fractur e. Posterior pedicle screw fixation at C1-C3. There is improved alignment of the dens post fixation. Severe degenerative change in the cervical spine most pronounced at C5-C6. Soft tissues: Prevertebral soft tissues are normal in thickness. No paravertebral hematomas. No ap ical pneumothoraces. IMPRESSION: No acute osseous abnormality. Prior dens fracture and posterior pedicle screw fixation at C1-C3. Reviewed by: Chris Burgos MD on 10/10/2021 8:30 PM PDT Approved by: Chris Burgos MD on 10/10/2021 8:30 PM PDT Station ID: [id number]
--- NOTE | 2021-10-10 20:36 | CT Report ---
PROCEDURE: MAXILLOFACIAL WO INDICATIONS: fall, head/face injury TECHNIQUE: Noncontrast 1.5 mm thick axial images acquired from the mandible through the frontal sinuses, with co ashutosh and sagittal reformatting. For radiation dose reduction, the following was used: automated ex posure control, adjustment of mA and/or kV according to patient size. COMPARISON: Maxillofacial CT 06/13/2019. FINDINGS: Image quality: Good. Bones and teeth: Orbital garcia are intact. Sinus garcia show no acute fracture or deformity. Prior n rajat bone fracture. Suspect prior fracture of the right maxillary sinus anterior wall. Visualized por tions of the mandible demonstrate no fractures or subluxation. Zygomatic arches are intact. Pterygo id plates are intact. Visualized portions of the skull base and auditory canals are intact. Prior C 1-C3 posterior pedicle screw fixation. Sinuses: Mild costal thickening in the right maxillary sinus and ethmoid air cells. Mastoid air cell s are aerated. Soft tissues: Large right forehead scalp hematoma. No enlarged lymph nodes. Vascular: Visualized vascular structures appear normal in the absence of contrast. Bony vascular fo ramina and canals are intact. IMPRESSION: No acute fracture. Large right forehead scalp hematoma. Reviewed by: Chris Burgos MD on 10/10/2021 8:34 PM PDT Approved by: Chris Burgos MD on 10/10/2021 8:34 PM PDT Station ID: [id number]
[2021-10-10] MEDS ORDERED: TETANUS/DIPHTHERIA/PERTUSSIS 0.5 ML SYRINGE IM ONE (20:45)
[2021-10-10 22:06] VITALS: BP 154/94
== END 2021-10-10 21:59 | disposition home or self-care (01) ==
LOC: ED 19:37
DX: S00.03XA Contusion of scalp, initial encounter (principal); S00.81XA Abrasion of other part of head, initial encounter; W01.0XXA Fall on same level from slipping, tripping and stumbling without subsequent striking against object, initial encounter; I48.91 Unspecified atrial fibrillation; Z79.01 Long term (current) use of anticoagulants; Z23 Encounter for immunization; Z71.85 Encounter for immunization safety counseling
CPT/HCPCS: 70450; 70486; 72125; 90715; 99282; 99284; A9270

== ENCOUNTER 2022-05-24 15:11 | Emergency (ER) | payer MEDICARE, OTHER ==
[2022-05-24 15:47] LABS: BASOPHILS # (AUTO) 0.1 10^3/uL (0.0-0.1); BASOPHILS % (AUTO) 0.6 %; EOSINOPHILS # (AUTO) 0.3 10^3/uL (0.0-0.7); EOSINOPHILS % (AUTO) 2.9 %; HCT - HEMATOCRIT 50.3 % (42.0-52.0); HGB - HEMOGLOBIN 16.4 g/dL (14.0-18.0); LYMPHOCYTES # (AUTO) 2.8 10^3/uL (1.5-3.5); MEAN CORPUSCULAR HEMOGLOBIN 30.3 pg (27.0-31.0); MEAN CORPUSCULAR HGB CONC 32.6 g/dL (32.0-36.0); MEAN PLATELET VOLUME 11.5 fL (7.4-11.4); NEUTROPHILS # (AUTO) 4.9 10^3/uL (1.5-6.6); NEUTROPHILS % (AUTO) 54.2 %; PLT - PLATELET COUNT 155 10^3/uL (130-450); RED BLOOD COUNT 5.41 10^6/uL (4.70-6.10); RED CELL DISTRIBUTION WIDTH 14.3 % (12.0-15.0); WHITE BLOOD COUNT 8.9 x10^3/uL (4.8-10.8)
[2022-05-24 15:57] LABS: ALBUMIN 4.3 g/dL (3.2-5.5); ALBUMIN/GLOBULIN RATIO 1.1 (1.0-2.2); BILIRUBIN,TOTAL 0.7 mg/dL (0.2-1.0); CALCIUM 9.7 mg/dL (8.5-10.3); CREATININE 1.1 mg/dL (0.6-1.2); POTASSIUM 4.2 mmol/L (3.5-5.0); TOTAL PROTEIN 8.3 g/dL (6.7-8.2)
[2022-05-24] MEDS ORDERED: iohexoL-300 100 ML VIAL ONE (16:05)
[2022-05-24] MEDS ORDERED: iohexoL-300 100 ML VIAL IVP ONE (16:18)
--- OUTSIDE RECORDS SUMMARY | 2022-05-24 16:21 | EXTERNAL MEDICAL SUMMARY RPT | Continuity of Care Document ---
:1935 Author Organization [facility] Address [address] [place] [address] Phone Care Team Providers Name Role Phone Fabián Ruggiero Unavailable Unavailable Allergies No information. Encounters No information. Functional Status No information. Immunizations No information. Medications No information. Problems No information. Procedures No information. Results/Labs test date author facility value unit interpret ation Result panel 1 (unknown) (no (unknown) (unknown) (no value) (units (unk nown) date) unknown) (unknown) (no (unknown) (unknown) 05/02/22 (units (unkno wn) date) unknown) (unknown) (no (unknown) (unknown) [id number] (units (unkno wn) date) unknown) (unknown) (no (unknown) (unknown) 86 Y/O M (units (unkno wn) date) presents to unknown) clinic for BTS Cystoscopy/PVR. (unknown) (no (unknown) (unknown) Age/Sex: 86 / M (units (unknown) date) Date of Service: unknown) (unknown) (no (unknown) (unknown) Allergies (units (unkn own) date) unknown) (unknown) (no (unknown) (unknown) [place], [place] (units ( unknown) date) [id number] unknown) (unknown) (no (unknown) (unknown) Attending Dr: (units ( unknown) date) Tessa Wood unknown) (unknown) (no (unknown) (unknown) BPH w urinary (units ( unknown) date) obs/LUTS unknown) (unknown) (no (unknown) (unknown) : 1935 (units (unknown) date) Acct:[id number] unknown) (unknown) (no (unknown) (unknown) Dept at (units (unkno wn) date) . unknown) (unknown) (no (unknown) (unknown) Documented By: (units (unknown) date) Tessa Wood unknown) 05/02/22 1008 (unknown) (no (unknown) (unknown) Draft (units (unkno wn) date) unknown) (unknown) (no (unknown) (unknown) HAZELNUTS (units (unkn own) date) Allergy (Severe, unknown) Uncoded 10/26/21 09:42) (unknown) (no (unknown) (unknown) HTN (units (unkno wn) date) (hypertension) unknown) (unknown) (no (unknown) (unknown) History of UTI (units (unknown) date) unknown) (unknown) (no (unknown) (unknown) History of (units (unk nown) date) bladder surgery unknown) (unknown) (no (unknown) (unknown) History of hip (units (unknown) date) replacement unknown) (unknown) (no (unknown) (unknown) 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 (unknown) (no (unknown) (unknown) Incomplete (units (unk nown) date) bladder emptying unknown) (unknown) (no (unknown) (unknown) Intake Note: (units (u nknown) date) unknown) (unknown) (no (unknown) (unknown) Intake performed (units (unknown) date) by: unknown) Clary Lewis (unknown) (no (unknown) (unknown) Intake (units (unkno wn) date) unknown) (unknown) (no (unknown) (unknown) Intake- Clincial (units (unknown) date) Staff unknown) (unknown) (no (unknown) (unknown) [facility] (units (unknown) date) unknown) (unknown) (no (unknown) (unknown) Loc: URO (units (unkno wn) date) unknown) (unknown) (no (unknown) (unknown) Medical History (units (unknown) date) (Reviewed unknown) 10/26/21 @ 10:22 by Tessa Wood MD) (unknown) (no (unknown) (unknown) PFSH (units (unkno wn) date) unknown) (unknown) (no (unknown) (unknown) Patient: (units (unkno wn) date) Mario Alberto Stoddard F unknown) MR#: [id number] (unknown) (no (unknown) (unknown) Reason For Visit (units (unknown) date) unknown) (unknown) (no (unknown) (unknown) S/P ureteral (units (u nknown) date) stent placement unknown) (unknown) (no (unknown) (unknown) Signed By: (units (unk nown) date) unknown) (unknown) (no (unknown) (unknown) Smoking Status: (units (unknown) date) Former smoker unknown) (unknown) (no (unknown) (unknown) Social History (units (unknown) date) (Reviewed unknown) 10/26/21 @ 10:22 by Tessa Wood MD) (unknown) (no (unknown) (unknown) Surgical History (units (unknown) date) (Reviewed unknown) 10/26/21 @ 10:22 by Tessa Wood MD) (unknown) (no (unknown) (unknown) THROAT SWELLING (units (unknown) date) unknown) (unknown) (no (unknown) (unknown) This note may (units ( unknown) date) have been all or unknown) partially generated using voice recognition (unknown) (no (unknown) (unknown) Tobacco Status (units (unknown) date) unknown) (unknown) (no (unknown) (unknown) UTI (urinary (units (u nknown) date) tract infection) unknown) (unknown) (no (unknown) (unknown) Urology Office (units (unknown) date) Visit unknown) (unknown) (no (unknown) (unknown) Visit Reasons: (units (unknown) date) BTS Cysto/PVR unknown) (unknown) (no (unknown) (unknown) alcohol intake: (units (unknown) date) current unknown) (unknown) (no (unknown) (unknown) caffeine: Yes (units ( unknown) date) unknown) (unknown) (no (unknown) (unknown) duasteride (units (unk nown) date) Adverse Reaction unknown) (Unknown, Uncoded 01/24/22 14:23) (unknown) (no (unknown) (unknown) have occurred. (units (unknown) date) If there are any unknown) questions, please contact the Medical Records (unknown) (no (unknown) (unknown) marital status: (units (unknown) date) unknown) (unknown) (no (unknown) (unknown) may occur. (units (unk nown) date) Occasional unknown) wrong-word or 'sound-alike' substitutions may have (unknown) (no (unknown) (unknown) occurred due to (units (unknown) date) the inherent unknown) limitations of voice recognition software. Please (unknown) (no (unknown) (unknown) read the note (units ( unknown) date) carefully and unknown) recognize, using context, where these substitutions (unknown) (no (unknown) (unknown) software. (units (unkn own) date) Although every unknown) effort is made to edit content, hide house supervisor errors Result panel 2 (unknown) (no (unknown) (unknown) (no value) (units (unk nown) date) unknown) (unknown) (no (unknown) (unknown) 10:30 (units (unkno wn) date) unknown) (unknown) (no (unknown) (unknown) 05/02/22 (units (unkno wn) date) unknown) (unknown) (no (unknown) (unknown) [id number] (units (unkno wn) date) unknown) (unknown) (no (unknown) (unknown) 86 Y/O M (units (unkno wn) date) presents to unknown) clinic for BTS Cystoscopy/PVR. (unknown) (no (unknown) (unknown) Age/Sex: 86 / M (units (unknown) date) Date of Service: unknown) (unknown) (no (unknown) (unknown) Allergies (units (unkn own) date) unknown) (unknown) (no (unknown) (unknown) [place], [place] (units ( unknown) date) [address] unknown) (unknown) (no (unknown) (unknown) Attending Dr: (units ( unknown) date) Tessa Wood unknown) (unknown) (no (unknown) (unknown) BP 156/99 H (units (un known) date) unknown) (unknown) (no (unknown) (unknown) BPH w urinary (units ( unknown) date) obs/LUTS unknown) (unknown) (no (unknown) (unknown) Blood Pressure (units (unknown) date) Location Lt unknown) brachial (unknown) (no (unknown) (unknown) : 1935 (units (unknown) date) Acct:[id number] unknown) (unknown) (no (unknown) (unknown) Dept at (units (unkno wn) date) . unknown) (unknown) (no (unknown) (unknown) Documented By: (units (unknown) date) Tessa Wood unknown) 05/02/22 1008 (unknown) (no (unknown) (unknown) Draft (units (unkno wn) date) unknown) (unknown) (no (unknown) (unknown) HAZELNUTS (units (unkn own) date) Allergy (Severe, unknown) Uncoded 05/02/22 10:30) (unknown) (no (unknown) (unknown) HTN (units (unkno wn) date) (hypertension) unknown) (unknown) (no (unknown) (unknown) History of UTI (units (unknown) date) unknown) (unknown) (no (unknown) (unknown) History of (units (unk nown) date) bladder surgery unknown) (unknown) (no (unknown) (unknown) History of hip (units (unknown) date) replacement unknown) (unknown) (no (unknown) (unknown) 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 (unknown) (no (unknown) (unknown) Incomplete (units (unk nown) date) bladder emptying unknown) (unknown) (no (unknown) (unknown) Intake Note: (units (u nknown) date) unknown) (unknown) (no (unknown) (unknown) Intake performed (units (unknown) date) by: unknown) Clary Lewis (unknown) (no (unknown) (unknown) Intake (units (unkno wn) date) unknown) (unknown) (no (unknown) (unknown) Intake- [facility] (units (unknown) date) Staff unknown) (unknown) (no (unknown) (unknown) [facility] (units (unknown) date) unknown) (unknown) (no (unknown) (unknown) Loc: [facility] (units (unkno wn) date) unknown) (unknown) (no (unknown) (unknown) Medical History (units (unknown) date) (Reviewed unknown) 10/26/21 @ 10:22 by Tessa Wood MD) (unknown) (no (unknown) (unknown) Oxygen Delivery (units (unknown) date) Method room air unknown) (unknown) (no (unknown) (unknown) PFSH (units (unkno wn) date) unknown) (unknown) (no (unknown) (unknown) Patient: (units (unkno wn) date) Mario Alberto Stoddard unknown) MR#: [id number] (unknown) (no (unknown) (unknown) Position Sitting (units (unknown) date) unknown) (unknown) (no (unknown) (unknown) Pulse 79 (units (unkno wn) date) unknown) (unknown) (no (unknown) (unknown) Pulse Oximetry (units (unknown) date) (%) 97 unknown) (unknown) (no (unknown) (unknown) Pulse Source (units (u nknown) date) Monitor unknown) (unknown) (no (unknown) (unknown) Reason For Visit (units (unknown) date) unknown) (unknown) (no (unknown) (unknown) Respiration 16 (units (unknown) date) unknown) (unknown) (no (unknown) (unknown) S/P ureteral (units (u nknown) date) stent placement unknown) (unknown) (no (unknown) (unknown) Signed By: (units (unk nown) date) unknown) (unknown) (no (unknown) (unknown) Smoking Status: (units (unknown) date) Former smoker unknown) (unknown) (no (unknown) (unknown) Social History (units (unknown) date) (Reviewed unknown) 10/26/21 @ 10:22 by Tessa Wood MD) (unknown) (no (unknown) (unknown) Surgical History (units (unknown) date) (Reviewed unknown) 10/26/21 @ 10:22 by Tessa Wood MD) (unknown) (no (unknown) (unknown) THROAT SWELLING (units (unknown) date) unknown) (unknown) (no (unknown) (unknown) This note may (units ( unknown) date) have been all or unknown) partially generated using voice recognition (unknown) (no (unknown) (unknown) Tobacco Status (units (unknown) date) unknown) (unknown) (no (unknown) (unknown) UTI (urinary (units (u nknown) date) tract infection) unknown) (unknown) (no (unknown) (unknown) Urology Office (units (unknown) date) Visit unknown) (unknown) (no (unknown) (unknown) Visit Reasons: (units (unknown) date) BTS Cysto/PVR unknown) (unknown) (no (unknown) (unknown) Vitals (units (unkno wn) date) unknown) (unknown) (no (unknown) (unknown) alcohol intake: (units (unknown) date) current unknown) (unknown) (no (unknown) (unknown) caffeine: Yes (units ( unknown) date) unknown) (unknown) (no (unknown) (unknown) duasteride (units (unk nown) date) Adverse Reaction unknown) (Unknown, Uncoded 05/02/22 10:30) (unknown) (no (unknown) (unknown) have occurred. (units (unknown) date) If there are any unknown) questions, please contact the Medical Records (unknown) (no (unknown) (unknown) marital status: (units (unknown) date) unknown) (unknown) (no (unknown) (unknown) may occur. (units (unk nown) date) Occasional unknown) wrong-word or 'sound-alike' substitutions may have (unknown) (no (unknown) (unknown) occurred due to (units (unknown) date) the inherent unknown) limitations of voice recognition software. Please (unknown) (no (unknown) (unknown) read the note (units ( unknown) date) carefully and unknown) recognize, using context, where these substitutions (unknown) (no (unknown) (unknown) software. (units (unkn own) date) Although every unknown) effort is made to edit content, hide house supervisor errors Result panel 3 (unknown) (no (unknown) (unknown) (no value) (units (unk nown) date) unknown) (unknown) (no (unknown) (unknown) /22 (units (unkno wn) date) unknown) (unknown) (no (unknown) (unknown) 10:30 (units (unkno wn) date) unknown) (unknown) (no (unknown) (unknown) 10:32 (units (unkno wn) date) unknown) (unknown) (no (unknown) (unknown) 05/02/22 (units (unkno wn) date) unknown) (unknown) (no (unknown) (unknown) 22 (units (unkno wn) date) unknown) (unknown) (no (unknown) (unknown) [id number] (units (unkno wn) date) unknown) (unknown) (no (unknown) (unknown) 86 Y/O M (units (unkno wn) date) presents to unknown) clinic for BTS Cystoscopy/PVR. (unknown) (no (unknown) (unknown) :32 (units (unkno wn) date) unknown) (unknown) (no (unknown) (unknown) Age/Sex: 86 / M (units (unknown) date) Date of Service: unknown) (unknown) (no (unknown) (unknown) Allergies (units (unkn own) date) unknown) (unknown) (no (unknown) (unknown) [place], [place] (units ( unknown) date) [id number] unknown) (unknown) (no (unknown) (unknown) Assessment + (units (u nknown) date) Plan unknown) (unknown) (no (unknown) (unknown) Attending Dr: (units ( unknown) date) Tessa Wood unknown) (unknown) (no (unknown) (unknown) BP 156/99 H (units (un known) date) unknown) (unknown) (no (unknown) (unknown) BPH w urinary (units ( unknown) date) obs/LUTS unknown) (unknown) (no (unknown) (unknown) Billing- Post (units ( unknown) date) Void Residual: unknown) Post Void Residual- [id number] (unknown) (no (unknown) (unknown) Bladder volume: (units (unknown) date) [id number] unknown) (unknown) (no (unknown) (unknown) Blood Pressure (units (unknown) date) Location Lt unknown) brachial (unknown) (no (unknown) (unknown) Complications: (units (unknown) date) No unknown) (unknown) (no (unknown) (unknown) Consent signed: (units (unknown) date) No unknown) (unknown) (no (unknown) (unknown) : 1935 (units (unknown) date) Acct:[id number] unknown) (unknown) (no (unknown) (unknown) Dept at (units (unkno wn) date) . unknown) (unknown) (no (unknown) (unknown) Documented By: (units (unknown) date) Tessa Wood unknownYolis ORDOÑEZ 05/02/22 1008 (unknown) (no (unknown) (unknown) Draft (units (unkno wn) date) unknown) (unknown) (no (unknown) (unknown) HAZELNUTS (units (unkn own) date) Allergy (Severe, unknown) Uncoded 05/02/22 10:30) (unknown) (no (unknown) (unknown) HTN (units (unkno wn) date) (hypertension) unknown) (unknown) (no (unknown) (unknown) History of UTI (units (unknown) date) unknown) (unknown) (no (unknown) (unknown) History of (units (unk nown) date) bladder surgery unknown) (unknown) (no (unknown) (unknown) History of hip (units (unknown) date) replacement unknown) (unknown) (no (unknown) (unknown) 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 (unknown) (no (unknown) (unknown) Incomplete (units (unk nown) date) bladder emptying unknown) (unknown) (no (unknown) (unknown) Informed consent (units (unknown) date) given: No unknown) (unknown) (no (unknown) (unknown) Intake Note: (units (u nknown) date) unknown) (unknown) (no (unknown) (unknown) Intake performed (units (unknown) date) by: unknown) Clary Lewis (unknown) (no (unknown) (unknown) Intake (units (unkno wn) date) unknown) (unknown) (no (unknown) (unknown) Intake- Clincial (units (unknown) date) Staff unknown) (unknown) (no (unknown) (unknown) [facility] (units (unknown) date) unknown) (unknown) (no (unknown) (unknown) Loc: [facility]RO (units (unkno wn) date) unknown) (unknown) (no (unknown) (unknown) Medical History (units (unknown) date) (Reviewed unknown) 10/26/21 @ 10:22 by Tessa Wood MD) (unknown) (no (unknown) (unknown) Office (units (unkno wn) date) Procedures unknown) (unknown) (no (unknown) (unknown) Orders (units (unkno wn) date) unknown) (unknown) (no (unknown) (unknown) Orders: (units (unkno wn) date) unknown) (unknown) (no (unknown) (unknown) Oxygen Delivery (units (unknown) date) Method room air unknown) (unknown) (no (unknown) (unknown) PFSH (units (unkno wn) date) unknown) (unknown) (no (unknown) (unknown) POC Urine Dip (units ( unknown) date) Today R33.9 - unknown) Retention of urine, unspecified (unknown) (no (unknown) (unknown) Patient: (units (unkno wn) date) Mario Alberto Stoddard unknown) MR#: [id number] (unknown) (no (unknown) (unknown) Photos taken: No (units (unknown) date) unknown) (unknown) (no (unknown) (unknown) Position Sitting (units (unknown) date) unknown) (unknown) (no (unknown) (unknown) Procedure (units (unkn own) date) performed by: unknown) Clary Lewis (unknown) (no (unknown) (unknown) Pulse 79 (units (unkno wn) date) unknown) (unknown) (no (unknown) (unknown) Pulse Oximetry (units (unknown) date) (%) 97 unknown) (unknown) (no (unknown) (unknown) Pulse Source (units (u nknown) date) Monitor unknown) (unknown) (no (unknown) (unknown) Reason For Visit (units (unknown) date) unknown) (unknown) (no (unknown) (unknown) Residual: post (units (unknown) date) void unknown) (unknown) (no (unknown) (unknown) Respiration 16 (units (unknown) date) unknown) (unknown) (no (unknown) (unknown) Results (units (unkno wn) date) unknown) (unknown) (no (unknown) (unknown) S/P ureteral (units (u nknown) date) stent placement unknown) (unknown) (no (unknown) (unknown) Signed By: (units (unk nown) date) unknown) (unknown) (no (unknown) (unknown) Smoking Status: (units (unknown) date) Former smoker unknown) (unknown) (no (unknown) (unknown) Social History (units (unknown) date) (Reviewed unknown) 10/26/21 @ 10:22 by Tessa Wood MD) (unknown) (no (unknown) (unknown) Surgical History (units (unknown) date) (Reviewed unknown) 10/26/21 @ 10:22 by Tsesa Wood MD) (unknown) (no (unknown) (unknown) THROAT SWELLING (units (unknown) date) unknown) (unknown) (no (unknown) (unknown) This note may (units ( unknown) date) have been all or unknown) partially generated using voice recognition (unknown) (no (unknown) (unknown) Tobacco Status (units (unknown) date) unknown) (unknown) (no (unknown) (unknown) UTI (urinary (units (u nknown) date) tract infection) unknown) (unknown) (no (unknown) (unknown) Urine Appearance (units (unknown) date) Clear Last Edit unknown) by Clary Lewis RN on 05/02/22 10:32 (unknown) (no (unknown) (unknown) Urine Bilirubin (units (unknown) date) Negative Last unknown) Edit by Clary Lewis RN on 05/02/22 10:32 (unknown) (no (unknown) (unknown) Urine Blood (units (un known) date) Negative Last unknown) Edit by Clary Lewis RN on 05/02/22 10:32 (unknown) (no (unknown) (unknown) Urine Color (units (un known) date) Yellow Last Edit unknown) by Clary Lewis RN on 05/02/22 10:32 (unknown) (no (unknown) (unknown) Urine Dipstick (units (unknown) date) unknown) (unknown) (no (unknown) (unknown) Urine Glucose (units ( unknown) date) Negative mg/dL unknown) Last Edit by Clary Lewis RN on 05/02/22 10 (unknown) (no (unknown) (unknown) Urine Ketones (units ( unknown) date) Negative Last unknown) Edit by Clary Lewis RN on 05/02/22 10:32 (unknown) (no (unknown) (unknown) Urine Leukocyte (units (unknown) date) Esterase Negative unknown) Last Edit by Clary Lewis RN on 05/02 (unknown) (no (unknown) (unknown) Urine Nitrate (units ( unknown) date) Negative Last unknown) Edit by Clary Lewis RN on 05/02/22 10:32 (unknown) (no (unknown) (unknown) Urine Protein (units ( unknown) date) Negative Last unknown) Edit by Clary Lewis RN on 05/02/22 10:32 (unknown) (no (unknown) (unknown) Urine Specific (units (unknown) date) [place] 1.025 unknown) Last Edit by Clary Lewis RN on 05/02/22 (unknown) (no (unknown) (unknown) Urine (units (unkno wn) date) Urobilinogen - unknown) 0.2 mg/dL Last Edit by Clary Lewis RN on (unknown) (no (unknown) (unknown) Urine pH 6.0 (units (u nknown) date) Last Edit by unknown) Clary Lewis RN on 05/02/22 10:32 (unknown) (no (unknown) (unknown) Urology Office (units (unknown) date) Visit unknown) (unknown) (no (unknown) (unknown) Visit Reasons: (units (unknown) date) BTS Cysto/PVR unknown) (unknown) (no (unknown) (unknown) Vitals (units (unkno wn) date) unknown) (unknown) (no (unknown) (unknown) alcohol intake: (units (unknown) date) current unknown) (unknown) (no (unknown) (unknown) caffeine: Yes (units ( unknown) date) unknown) (unknown) (no (unknown) (unknown) duasteride (units (unk nown) date) Adverse Reaction unknown) (Unknown, Uncoded 05/02/22 10:30) (unknown) (no (unknown) (unknown) have occurred. (units (unknown) date) If there are any unknown) questions, please contact the Medical Records (unknown) (no (unknown) (unknown) marital status: (units (unknown) date) unknown) (unknown) (no (unknown) (unknown) may occur. (units (unk nown) date) Occasional unknown) wrong-word or 'sound-alike' substitutions may have (unknown) (no (unknown) (unknown) occurred due to (units (unknown) date) the inherent unknown) limitations of voice recognition software. Please (unknown) (no (unknown) (unknown) read the note (units ( unknown) date) carefully and unknown) recognize, using context, where these substitutions (unknown) (no (unknown) (unknown) software. (units (unkn own) date) Although every unknown) effort is made to edit content, hide house supervisor errors Result panel 4 (unknown) (no (unknown) (unknown) (no value) (units (unk nown) date) unknown) (unknown) (no (unknown) (unknown) /22 (units (unkno wn) date) unknown) (unknown) (no (unknown) (unknown) 10:30 (units (unkno wn) date) unknown) (unknown) (no (unknown) (unknown) 10:32 (units (unkno wn) date) unknown) (unknown) (no (unknown) (unknown) 05/02/22 (units (unkno wn) date) unknown) (unknown) (no (unknown) (unknown) 05/02/22] (units (unkn own) date) unknown) (unknown) (no (unknown) (unknown) 22 (units (unkno wn) date) unknown) (unknown) (no (unknown) (unknown) [id number] (units (unkno wn) date) unknown) (unknown) (no (unknown) (unknown) 86 Y/O M (units (unkno wn) date) presents to unknown) clinic for BTS Cystoscopy/PVR. (unknown) (no (unknown) (unknown) :32 (units (unkno wn) date) unknown) (unknown) (no (unknown) (unknown) Age/Sex: 86 / M (units (unknown) date) Date of Service: unknown) (unknown) (no (unknown) (unknown) Allergies (units (unkn own) date) unknown) (unknown) (no (unknown) (unknown) [place], [place] (units ( unknown) date) [id number] unknown) (unknown) (no (unknown) (unknown) Assessment + (units (u nknown) date) Plan unknown) (unknown) (no (unknown) (unknown) Attending Dr: (units ( unknown) date) Tessa Bloomwitch unknown) (unknown) (no (unknown) (unknown) BP 156/99 H (units (un known) date) unknown) (unknown) (no (unknown) (unknown) BPH w urinary (units ( unknown) date) obs/LUTS unknown) (unknown) (no (unknown) (unknown) Billing- Post (units ( unknown) date) Void Residual: unknown) Post Void Residual- [id number] (unknown) (no (unknown) (unknown) Bladder volume: (units (unknown) date) [id number] unknown) (unknown) (no (unknown) (unknown) Blood Pressure (units (unknown) date) Location Lt unknown) brachial (unknown) (no (unknown) (unknown) CA (units (unkno wn) date) PANTOTHENATE/FOLI unknown) C ACID/VIT (MULTIVITAMIN) 1 tab PO BID ##0 10/26/21 [History (unknown) (no (unknown) (unknown) CALCIUM (units (unkno wn) date) CARBONATE 1,200 unknown) mg PO QDAY ##0 10/29/12 [History Confirmed 05/02/22] (unknown) (no (unknown) (unknown) Complications: (units (unknown) date) No unknown) (unknown) (no (unknown) (unknown) Confirmed (units (unkn own) date) 05/02/22] unknown) (unknown) (no (unknown) (unknown) Consent signed: (units (unknown) date) No unknown) (unknown) (no (unknown) (unknown) : 1935 (units (unknown) date) Acct:[id number] unknown) (unknown) (no (unknown) (unknown) Dept at (units (unkno wn) date) . unknown) (unknown) (no (unknown) (unknown) Documented By: (units (unknown) date) Tessa Wood unknown) 05/02/22 1008 (unknown) (no (unknown) (unknown) Draft (units (unkno wn) date) unknown) (unknown) (no (unknown) (unknown) HAZELNUTS (units (unkn own) date) Allergy (Severe, unknown) Uncoded 05/02/22 10:30) (unknown) (no (unknown) (unknown) HTN (units (unkno wn) date) (hypertension) unknown) (unknown) (no (unknown) (unknown) History of UTI (units (unknown) date) unknown) (unknown) (no (unknown) (unknown) History of (units (unk nown) date) bladder surgery unknown) (unknown) (no (unknown) (unknown) History of hip (units (unknown) date) replacement unknown) (unknown) (no (unknown) (unknown) 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 (unknown) (no (unknown) (unknown) Incomplete (units (unk nown) date) bladder emptying unknown) (unknown) (no (unknown) (unknown) Informed consent (units (unknown) date) given: No unknown) (unknown) (no (unknown) (unknown) Intake Note: (units (u nknown) date) unknown) (unknown) (no (unknown) (unknown) Intake performed (units (unknown) date) by: unknown) Clary Lewis (unknown) (no (unknown) (unknown) Intake (units (unkno wn) date) unknown) (unknown) (no (unknown) (unknown) Intake- [facility] (units (unknown) date) Staff unknown) (unknown) (no (unknown) (unknown) [facility] (units (unknown) date) unknown) (unknown) (no (unknown) (unknown) Loc: [facility] (units (unkno wn) date) unknown) (unknown) (no (unknown) (unknown) Medical History (units (unknown) date) (Reviewed unknown) 10/26/21 @ 10:22 by Tessa Wood MD) (unknown) (no (unknown) (unknown) Medications (units (un known) date) unknown) (unknown) (no (unknown) (unknown) Office (units (unkno wn) date) Procedures unknown) (unknown) (no (unknown) (unknown) Orders (units (unkno wn) date) unknown) (unknown) (no (unknown) (unknown) Orders: (units (unkno wn) date) unknown) (unknown) (no (unknown) (unknown) Oxygen Delivery (units (unknown) date) Method room air unknown) (unknown) (no (unknown) (unknown) PFSH (units (unkno wn) date) unknown) (unknown) (no (unknown) (unknown) POC Urine Dip (units ( unknown) date) Today R33.9 - unknown) Retention of urine, unspecified (unknown) (no (unknown) (unknown) Patient: (units (unkno wn) date) Mario Alberto Stoddard F unknown) MR#: [id number] (unknown) (no (unknown) (unknown) Photos taken: No (units (unknown) date) unknown) (unknown) (no (unknown) (unknown) Position Sitting (units (unknown) date) unknown) (unknown) (no (unknown) (unknown) Procedure (units (unkn own) date) performed by: unknown) Clary Lewis (unknown) (no (unknown) (unknown) Pulse 79 (units (unkno wn) date) unknown) (unknown) (no (unknown) (unknown) Pulse Oximetry (units (unknown) date) (%) 97 unknown) (unknown) (no (unknown) (unknown) Pulse Source (units (u nknown) date) Monitor unknown) (unknown) (no (unknown) (unknown) Reason For Visit (units (unknown) date) unknown) (unknown) (no (unknown) (unknown) Residual: post (units (unknown) date) void unknown) (unknown) (no (unknown) (unknown) Respiration 16 (units (unknown) date) unknown) (unknown) (no (unknown) (unknown) Results (units (unkno wn) date) unknown) (unknown) (no (unknown) (unknown) S/P ureteral (units (u nknown) date) stent placement unknown) (unknown) (no (unknown) (unknown) Signed By: (units (unk nown) date) unknown) (unknown) (no (unknown) (unknown) Smoking Status: (units (unknown) date) Former smoker unknown) (unknown) (no (unknown) (unknown) Social History (units (unknown) date) (Reviewed unknown) 10/26/21 @ 10:22 by Tessa Wood MD) (unknown) (no (unknown) (unknown) Surgical History (units (unknown) date) (Reviewed unknown) 10/26/21 @ 10:22 by Tessa Wood MD) (unknown) (no (unknown) (unknown) THROAT SWELLING (units (unknown) date) unknown) (unknown) (no (unknown) (unknown) This note may (units ( unknown) date) have been all or unknown) partially generated using voice recognition (unknown) (no (unknown) (unknown) Tobacco Status (units (unknown) date) unknown) (unknown) (no (unknown) (unknown) UTI (urinary (units (u nknown) date) tract infection) unknown) (unknown) (no (unknown) (unknown) Urine Appearance (units (unknown) date) Clear Last Edit unknown) by Clary Lewis RN on 05/02/22 10:32 (unknown) (no (unknown) (unknown) Urine Bilirubin (units (unknown) date) Negative Last unknown) Edit by Clary Lewis RN on 05/02/22 10:32 (unknown) (no (unknown) (unknown) Urine Blood (units (un known) date) Negative Last unknown) Edit by Clary Lewis RN on 05/02/22 10:32 (unknown) (no (unknown) (unknown) Urine Color (units (un known) date) Yellow Last Edit unknown) by Clary Lewis RN on 05/02/22 10:32 (unknown) (no (unknown) (unknown) Urine Dipstick (units (unknown) date) unknown) (unknown) (no (unknown) (unknown) Urine Glucose (units ( unknown) date) Negative mg/dL unknown) Last Edit by Clary Lewis RN on 05/02/22 10 (unknown) (no (unknown) (unknown) Urine Ketones (units ( unknown) date) Negative Last unknown) Edit by Clary Lewis RN on 05/02/22 10:32 (unknown) (no (unknown) (unknown) Urine Leukocyte (units (unknown) date) Esterase Negative unknown) Last Edit by Clary Lewis RN on 05/02 (unknown) (no (unknown) (unknown) Urine Nitrate (units ( unknown) date) Negative Last unknown) Edit by Clary Lewis RN on 05/02/22 10:32 (unknown) (no (unknown) (unknown) Urine Protein (units ( unknown) date) Negative Last unknown) Edit by Clary Lewis RN on 05/02/22 10:32 (unknown) (no (unknown) (unknown) Urine Specific (units (unknown) date) [place] 1.025 unknown) Last Edit by Clary Lewis RN on 05/02/22 (unknown) (no (unknown) (unknown) Urine (units (unkno wn) date) Urobilinogen - unknown) 0.2 mg/dL Last Edit by Clary Lewis RN on (unknown) (no (unknown) (unknown) Urine pH 6.0 (units (u nknown) date) Last Edit by unknown) Clary Lewis RN on 05/02/22 10:32 (unknown) (no (unknown) (unknown) Urology Office (units (unknown) date) Visit unknown) (unknown) (no (unknown) (unknown) VITAMIN D (units (unkn own) date) (Vitamin D3) unknown) 1,000 unit PO QDAY ##0 10/29/12 [History Confirmed (unknown) (no (unknown) (unknown) Visit Reasons: (units (unknown) date) BTS Cysto/PVR unknown) (unknown) (no (unknown) (unknown) Vitals (units (unkno wn) date) unknown) (unknown) (no (unknown) (unknown) alcohol intake: (units (unknown) date) current unknown) (unknown) (no (unknown) (unknown) apixaban 2.5 mg (units (unknown) date) tablet (Eliquis) unknown) 2.5 mg PO BID 09/09/20 [History Confirmed (unknown) (no (unknown) (unknown) caffeine: Yes (units ( unknown) date) unknown) (unknown) (no (unknown) (unknown) carvedilol 25 mg (units (unknown) date) tablet (Coreg) 25 unknown) mg PO BID 02/01/21 [History Confirmed (unknown) (no (unknown) (unknown) duasteride (units (unk nown) date) Adverse Reaction unknown) (Unknown, Uncoded 05/02/22 10:30) (unknown) (no (unknown) (unknown) finasteride 5 mg (units (unknown) date) tablet 5 mg PO unknown) DAILY #90 tabs 01/24/22 [Rx Confirmed 05/02/22] (unknown) (no (unknown) (unknown) have occurred. (units (unknown) date) If there are any unknown) questions, please contact the Medical Records (unknown) (no (unknown) (unknown) levothyroxine 50 (units (unknown) date) mcg tablet unknown) (Synthroid) 50 mcg PO QDAY ##0 10/14/12 [History (unknown) (no (unknown) (unknown) marital status: (units (unknown) date) unknown) (unknown) (no (unknown) (unknown) may occur. (units (unk nown) date) Occasional unknown) wrong-word or 'sound-alike' substitutions may have (unknown) (no (unknown) (unknown) occurred due to (units (unknown) date) the inherent unknown) limitations of voice recognition software. Please (unknown) (no (unknown) (unknown) read the note (units ( unknown) date) carefully and unknown) recognize, using context, where these substitutions (unknown) (no (unknown) (unknown) software. (units (unkn own) date) Although every unknown) effort is made to edit content, hide house supervisor errors Result panel 5 (unknown) (no (unknown) (unknown) (no value) (units (unk nown) date) unknown) (unknown) (no (unknown) (unknown) / (units (unkno wn) date) unknown) (unknown) (no (unknown) (unknown) 10:30 (units (unkno wn) date) unknown) (unknown) (no (unknown) (unknown) 10:32 (units (unkno wn) date) unknown) (unknown) (no (unknown) (unknown) 05/02/22 (units (unkno wn) date) unknown) (unknown) (no (unknown) (unknown) 05/02/22] (units (unkn own) date) unknown) (unknown) (no (unknown) (unknown) (units (unkno wn) date) unknown) (unknown) (no (unknown) (unknown) [id number] (units (unkno wn) date) unknown) (unknown) (no (unknown) (unknown) 86 Y/O M (units (unkno wn) date) presents to unknown) clinic for BTS Cystoscopy/PVR. (unknown) (no (unknown) (unknown) :32 (units (unkno wn) date) unknown) (unknown) (no (unknown) (unknown) Age/Sex: 86 / M (units (unknown) date) Date of Service: unknown) (unknown) (no (unknown) (unknown) All systems (units (un known) date) reviewed + are unknown) unremarkable except as noted in HPI and below (unknown) (no (unknown) (unknown) Allergies (units (unkn own) date) unknown) (unknown) (no (unknown) (unknown) [place], [place] (units ( unknown) date) [id number] unknown) (unknown) (no (unknown) (unknown) Assessment + (units (u nknown) date) Plan unknown) (unknown) (no (unknown) (unknown) Attending Dr: (units ( unknown) date) Tessa Bloomwitch unknown) (unknown) (no (unknown) (unknown) BP 156/99 H (units (un known) date) unknown) (unknown) (no (unknown) (unknown) BPH w urinary (units ( unknown) date) obs/LUTS unknown) (unknown) (no (unknown) (unknown) Billing- Post (units ( unknown) date) Void Residual: unknown) Post Void Residual- 28060 (unknown) (no (unknown) (unknown) Bladder volume: (units (unknown) date) [id number] unknown) (unknown) (no (unknown) (unknown) Blood Pressure (units (unknown) date) Location Lt unknown) brachial (unknown) (no (unknown) (unknown) CA (units (unkno wn) date) PANTOTHENATE/FOLI unknown) C ACID/VIT (MULTIVITAMIN) 1 tab PO BID ##0 10/26/21 [History (unknown) (no (unknown) (unknown) CALCIUM (units (unkno wn) date) CARBONATE 1,200 unknown) mg PO QDAY ##0 10/29/12 [History Confirmed 05/02/22] (unknown) (no (unknown) (unknown) Chief Complaint (units (unknown) date) unknown) (unknown) (no (unknown) (unknown) Chief Complaint: (units (unknown) date) History of unknown) bladder cancer (unknown) (no (unknown) (unknown) Complications: (units (unknown) date) No unknown) (unknown) (no (unknown) (unknown) Confirmed (units (unkn own) date) 05/02/22] unknown) (unknown) (no (unknown) (unknown) Confirms (units (unkno wn) date) compliance on unknown) Uroxatral and finasteride. He denies interval new (unknown) (no (unknown) (unknown) Consent signed: (units (unknown) date) No unknown) (unknown) (no (unknown) (unknown) Const (units (unkno wn) date) unknown) (unknown) (no (unknown) (unknown) : 1935 (units (unknown) date) Acct:[id number] unknown) (unknown) (no (unknown) (unknown) Dept at (units (unkno wn) date) . unknown) (unknown) (no (unknown) (unknown) Details: (units (unkno wn) date) unknown) (unknown) (no (unknown) (unknown) Documented By: (units (unknown) date) Tessa Wood unknown) 05/02/22 1008 (unknown) (no (unknown) (unknown) Draft (units (unkno wn) date) unknown) (unknown) (no (unknown) (unknown) Exam Narrative (units (unknown) date) unknown) (unknown) (no (unknown) (unknown) Exam Narrative: (units (unknown) date) unknown) (unknown) (no (unknown) (unknown) Exam (units (unkno wn) date) unknown) (unknown) (no (unknown) (unknown) HAZELNUTS (units (unkn own) date) Allergy (Severe, unknown) Uncoded 05/02/22 10:30) (unknown) (no (unknown) (unknown) HPI (units (unkno wn) date) unknown) (unknown) (no (unknown) (unknown) HTN (units (unkno wn) date) (hypertension) unknown) (unknown) (no (unknown) (unknown) History of UTI (units (unknown) date) unknown) (unknown) (no (unknown) (unknown) History of (units (unk nown) date) bladder surgery unknown) (unknown) (no (unknown) (unknown) History of hip (units (unknown) date) replacement unknown) (unknown) (no (unknown) (unknown) 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 (unknown) (no (unknown) (unknown) Incomplete (units (unk nown) date) bladder emptying unknown) (unknown) (no (unknown) (unknown) Informed consent (units (unknown) date) given: No unknown) (unknown) (no (unknown) (unknown) Intake Note: (units (u nknown) date) unknown) (unknown) (no (unknown) (unknown) Intake performed (units (unknown) date) by: unknown) Clary Lewis (unknown) (no (unknown) (unknown) Intake (units (unkno wn) date) unknown) (unknown) (no (unknown) (unknown) Intake- Clincial (units (unknown) date) Staff unknown) (unknown) (no (unknown) (unknown) [facility] (units (unknown) date) unknown) (unknown) (no (unknown) (unknown) Loc: [facility] (units (unkno wn) date) unknown) (unknown) (no (unknown) (unknown) Mario Alberto returns (units ( unknown) date) today for unknown) schedule BT S 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, heddler tier (unknown) (no (unknown) (unknown) Medical History (units (unknown) date) (Reviewed unknown) 05/02/22 @ 11:25 by Tessa Wood MD) (unknown) (no (unknown) (unknown) Medications (units (un known) date) unknown) (unknown) (no (unknown) (unknown) Office (units (unkno wn) date) Procedures unknown) (unknown) (no (unknown) (unknown) Orders (units (unkno wn) date) unknown) (unknown) (no (unknown) (unknown) Orders: (units (unkno wn) date) unknown) (unknown) (no (unknown) (unknown) Oxygen Delivery (units (unknown) date) Method room air unknown) (unknown) (no (unknown) (unknown) PFSH (units (unkno wn) date) unknown) (unknown) (no (unknown) (unknown) POC Urine Dip (units ( unknown) date) Today R33.9 - unknown) Retention of urine, unspecified (unknown) (no (unknown) (unknown) Patient: (units (unkno wn) date) ArlynMario Alberto F unknown) MR#: [id number] (unknown) (no (unknown) (unknown) Photos taken: No (units (unknown) date) unknown) (unknown) (no (unknown) (unknown) Position Sitting (units (unknown) date) unknown) (unknown) (no (unknown) (unknown) Procedure (units (unkn own) date) performed by: unknown) Clary Lewis (unknown) (no (unknown) (unknown) Pulse 79 (units (unkno wn) date) unknown) (unknown) (no (unknown) (unknown) Pulse Oximetry (units (unknown) date) (%) 97 unknown) (unknown) (no (unknown) (unknown) Pulse Source (units (u nknown) date) Monitor unknown) (unknown) (no (unknown) (unknown) ROS (units (unkno wn) date) unknown) (unknown) (no (unknown) (unknown) Reason For Visit (units (unknown) date) unknown) (unknown) (no (unknown) (unknown) Residual: post (units (unknown) date) void unknown) (unknown) (no (unknown) (unknown) Respiration 16 (units (unknown) date) unknown) (unknown) (no (unknown) (unknown) Results (units (unkno wn) date) unknown) (unknown) (no (unknown) (unknown) S/P ureteral (units (u nknown) date) stent placement unknown) (unknown) (no (unknown) (unknown) Signed By: (units (unk nown) date) unknown) (unknown) (no (unknown) (unknown) Smoking Status: (units (unknown) date) Former smoker unknown) (unknown) (no (unknown) (unknown) Social History (units (unknown) date) (Reviewed unknown) 05/02/22 @ 11:25 by Tessa Wood MD) (unknown) (no (unknown) (unknown) Surgical History (units (unknown) date) (Reviewed unknown) 05/02/22 @ 11:25 by Tessa Wood MD) (unknown) (no (unknown) (unknown) THROAT SWELLING (units (unknown) date) unknown) (unknown) (no (unknown) (unknown) This note may (units ( unknown) date) have been all or unknown) partially generated using voice recognition (unknown) (no (unknown) (unknown) Tobacco Status (units (unknown) date) unknown) (unknown) (no (unknown) (unknown) UTI (urinary (units (u nknown) date) tract infection) unknown) (unknown) (no (unknown) (unknown) Unchanged, (units (unk nown) date) normal adult unknown) circumcised male external genitalia. (unknown) (no (unknown) (unknown) Urine Appearance (units (unknown) date) Clear Last Edit unknown) by Clary Lewis RN on 05/02/22 10:32 (unknown) (no (unknown) (unknown) Urine Bilirubin (units (unknown) date) Negative Last unknown) Edit by Clary Lewis RN on 05/02/22 10:32 (unknown) (no (unknown) (unknown) Urine Blood (units (un known) date) Negative Last unknown) Edit by Clary Lewis RN on 05/02/22 10:32 (unknown) (no (unknown) (unknown) Urine Color (units (un known) date) Yellow Last Edit unknown) by Clary Lewis RN on 05/02/22 10:32 (unknown) (no (unknown) (unknown) Urine Dipstick (units (unknown) date) unknown) (unknown) (no (unknown) (unknown) Urine Glucose (units ( unknown) date) Negative mg/dL unknown) Last Edit by Clary Lewis RN on 05/02/22 10 (unknown) (no (unknown) (unknown) Urine Ketones (units ( unknown) date) Negative Last unknown) Edit by Clary Lewis RN on 05/02/22 10:32 (unknown) (no (unknown) (unknown) Urine Leukocyte (units (unknown) date) Esterase Negative unknown) Last Edit by Clary Lewis RN on 05/02 (unknown) (no (unknown) (unknown) Urine Nitrate (units ( unknown) date) Negative Last unknown) Edit by Clary Lewis RN on 05/02/22 10:32 (unknown) (no (unknown) (unknown) Urine Protein (units ( unknown) date) Negative Last unknown) Edit by Clary Lewis RN on 05/02/22 10:32 (unknown) (no (unknown) (unknown) Urine Specific (units (unknown) date) [place] 1.025 unknown) Last Edit by Clary Lewis RN on 05/02/22 (unknown) (no (unknown) (unknown) Urine (units (unkno wn) date) Urobilinogen - unknown) 0.2 mg/dL Last Edit by Clary Lewis RN on (unknown) (no (unknown) (unknown) Urine pH 6.0 (units (u nknown) date) Last Edit by unknown) Clary Lewis RN on 05/02/22 10:32 (unknown) (no (unknown) (unknown) Urology Office (units (unknown) date) Visit unknown) (unknown) (no (unknown) (unknown) VITAMIN D (units (unkn own) date) (Vitamin D3) unknown) 1,000 unit PO QDAY ##0 10/29/12 [History Confirmed (unknown) (no (unknown) (unknown) Visit Reasons: (units (unknown) date) BTS Cysto/PVR unknown) (unknown) (no (unknown) (unknown) Vitals (units (unkno wn) date) unknown) (unknown) (no (unknown) (unknown) a small (units (unkno wn) date) recurrence at the unknown) margin and near the left ureteral orifice status post (unknown) (no (unknown) (unknown) alcohol intake: (units (unknown) date) current unknown) (unknown) (no (unknown) (unknown) apixaban 2.5 mg (units (unknown) date) tablet (Eliquis) unknown) 2.5 mg PO BID 09/09/20 [History Confirmed (unknown) (no (unknown) (unknown) but patient (units (un known) date) states that he unknown) only voided enough to provide the urine specimen and (unknown) (no (unknown) (unknown) caffeine: Yes (units ( unknown) date) unknown) (unknown) (no (unknown) (unknown) carvedilol 25 mg (units (unknown) date) tablet (Coreg) 25 unknown) mg PO BID 02/01/21 [History Confirmed (unknown) (no (unknown) (unknown) complaints, (units (un known) date) hematuria, or unknown) dysuria. Urinalysis today is clear. PVR is 267 cc, (unknown) (no (unknown) (unknown) did not void to (units (unknown) date) completion. unknown) (unknown) (no (unknown) (unknown) duasteride (units (unk nown) date) Adverse Reaction unknown) (Unknown, Uncoded 05/02/22 10:30) (unknown) (no (unknown) (unknown) finasteride 5 mg (units (unknown) date) tablet 5 mg PO unknown) DAILY #90 tabs 01/24/22 [Rx Confirmed 05/02/22] (unknown) (no (unknown) (unknown) have occurred. (units (unknown) date) If there are any unknown) questions, please contact the Medical Records (unknown) (no (unknown) (unknown) levothyroxine 50 (units (unknown) date) mcg tablet unknown) (Synthroid) 50 mcg PO QDAY ##0 10/14/12 [History (unknown) (no (unknown) (unknown) marital status: (units (unknown) date) unknown) (unknown) (no (unknown) (unknown) may occur. (units (unk nown) date) Occasional unknown) wrong-word or 'sound-alike' substitutions may have (unknown) (no (unknown) (unknown) occurred due to (units (unknown) date) the inherent unknown) limitations of voice recognition software. Please (unknown) (no (unknown) (unknown) read the note (units ( unknown) date) carefully and unknown) recognize, using context, where these substitutions (unknown) (no (unknown) (unknown) repeat TURBT (units (u nknown) date) 05/03/2020. He is unknown) had negative BT S cystoscopy since then. (unknown) (no (unknown) (unknown) software. 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 Return to (units (u nknown) date) [facility] 1 unknown) year for BT S cystoscopy and PVR with instruction (unknown) (no (unknown) (unknown) 10:30 (units (unkno wn) date) unknown) (unknown) (no (unknown) (unknown) 10:32 (units (unkno wn) date) unknown) (unknown) (no (unknown) (unknown) 05/02/22 1128 (units ( unknown) date) unknown) (unknown) (no (unknown) (unknown) 05/02/22 (units (unkno wn) date) unknown) (unknown) (no (unknown) (unknown) 05/02/22] (units (unkn own) date) unknown) (unknown) (no (unknown) (unknown) 2. Continue (units (un known) date) finasteride 5 mg unknown) p.o. q.day and Uroxatral 10 mg p.o. q.day as (unknown) (no (unknown) (unknown) (units (unkno wn) date) unknown) (unknown) (no (unknown) (unknown) [id number] (units (unkno wn) date) unknown) (unknown) (no (unknown) (unknown) 86 Y/O M presents (units (unknown) date) to clinic for BTS unknown) Cystoscopy/PVR. (unknown) (no (unknown) (unknown) :32 (units (unkno wn) date) unknown) (unknown) (no (unknown) (unknown) Age/Sex: 86 / M (units (unknown) date) Date of Service: unknown) (unknown) (no (unknown) (unknown) All systems (units (un known) date) reviewed + are unknown) unremarkable except as noted in HPI and below (unknown) (no (unknown) (unknown) Allergies (units (unkn own) date) unknown) (unknown) (no (unknown) (unknown) MIRIAN Pope (units ( unknown) date) [id number] unknown) (unknown) (no (unknown) (unknown) Assessment + Plan (units (unknown) date) unknown) (unknown) (no (unknown) (unknown) Attending Dr: (units ( unknown) date) Tessa Wood MD unknown) (unknown) (no (unknown) (unknown) BP 156/99 H (units (un known) date) unknown) (unknown) (no (unknown) (unknown) BPH w urinary (units ( unknown) date) obs/LUTS unknown) (unknown) (no (unknown) (unknown) Billing- Post (units ( unknown) date) Void Residual: unknown) Post Void Residual- 47746 (unknown) (no (unknown) (unknown) Bladder volume: (units (unknown) date) [id number] unknown) (unknown) (no (unknown) (unknown) Bladder-normal (units (unknown) date) ureteral orifices unknown) bilaterally. Well-healed resection beds. (unknown) (no (unknown) (unknown) Blood Pressure (units (unknown) date) Location Lt unknown) brachial (unknown) (no (unknown) (unknown) CA (units (unkno wn) date) PANTOTHENATE/FOLIC unknown) ACID/VIT (MULTIVITAMIN) 1 tab PO BID ##0 10/26/21 [History (unknown) (no (unknown) (unknown) CALCIUM CARBONATE (units (unknown) date) 1,200 mg PO QDAY unknown) ##0 10/29/12 [History Confirmed 05/02/22] (unknown) (no (unknown) (unknown) Chief Complaint (units (unknown) date) unknown) (unknown) (no (unknown) (unknown) Chief Complaint: (units (unknown) date) History of bladder unknown) cancer (unknown) (no (unknown) (unknown) Code(s): (units (unkno wn) date) unknown) (unknown) (no (unknown) (unknown) Complications: No (units (unknown) date) unknown) (unknown) (no (unknown) (unknown) Confirmed (units (unkn own) date) 05/02/22] unknown) (unknown) (no (unknown) (unknown) Confirms (units (unkno wn) date) compliance on unknown) Uroxatral and finasteride. He denies interval new (unknown) (no (unknown) (unknown) Consent signed: (units (unknown) date) No unknown) (unknown) (no (unknown) (unknown) Consent signed: (units (unknown) date) Yes unknown) (unknown) (no (unknown) (unknown) Const (units (unkno wn) date) unknown) (unknown) (no (unknown) (unknown) : 1935 (units (unknown) date) Acct:[id number] unknown) (unknown) (no (unknown) (unknown) Dept at (units (unkno wn) date) . unknown) (unknown) (no (unknown) (unknown) Details: (units (unkno wn) date) unknown) (unknown) (no (unknown) (unknown) Documented By: (units (unknown) date) Tessa Wood MD unknown) 05/02/22 1008 (unknown) (no (unknown) (unknown) Encounter (units (unkn own) date) documentation, and unknown) billing-5 minutes (unknown) (no (unknown) (unknown) Exam Narrative (units (unknown) date) unknown) (unknown) (no (unknown) (unknown) Exam Narrative: (units (unknown) date) unknown) (unknown) (no (unknown) (unknown) Exam (units (unkno wn) date) unknown) (unknown) (no (unknown) (unknown) External (units (unkno wn) date) sphincter-coapted unknown) with normal overlying urothelium. (unknown) (no (unknown) (unknown) FINDINGS: (units (unkn own) date) unknown) (unknown) (no (unknown) (unknown) [id number] (units (u nknown) date) encounter unknown) exclusive of performance of cystoscopy-15 minutes (unknown) (no (unknown) (unknown) HAZELNUTS Allergy (units (unknown) date) (Severe, Uncoded unknown) 05/02/22 10:30) (unknown) (no (unknown) (unknown) HPI (units (unkno wn) date) unknown) (unknown) (no (unknown) (unknown) HTN (units (unkno wn) date) (hypertension) unknown) (unknown) (no (unknown) (unknown) History of UTI (units (unknown) date) unknown) (unknown) (no (unknown) (unknown) History of (units (unk nown) date) bladder surgery unknown) (unknown) (no (unknown) (unknown) History of hip (units (unknown) date) replacement unknown) (unknown) (no (unknown) (unknown) 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 (unknown) (no (unknown) (unknown) Incomplete (units (unk nown) date) bladder emptying unknown) (unknown) (no (unknown) (unknown) Informed consent (units (unknown) date) given: No unknown) (unknown) (no (unknown) (unknown) Informed consent (units (unknown) date) given: Yes unknown) (unknown) (no (unknown) (unknown) Intake Note: (units (u nknown) date) unknown) (unknown) (no (unknown) (unknown) Intake performed (units (unknown) date) by: unknown) Clary Lewis (unknown) (no (unknown) (unknown) Intake (units (unkno wn) date) unknown) (unknown) (no (unknown) (unknown) Intake- Clincial (units (unknown) date) Staff unknown) (unknown) (no (unknown) (unknown) [facility] (units (unknown) date) unknown) (unknown) (no (unknown) (unknown) Loc: URO (units (unkno wn) date) unknown) (unknown) (no (unknown) (unknown) [place] returns (units ( unknown) date) today for schedule unknown) BT S 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, heddler tier (unknown) (no (unknown) (unknown) Medical History (units (unknown) date) (Reviewed 05/02/22 unknown) @ 11:25 by Tessa Wood MD) (unknown) (no (unknown) (unknown) Medications (units (un known) date) unknown) (unknown) (no (unknown) (unknown) N40.1 - Benign (units (unknown) date) prostatic unknown) hyperplasia with lower urinary tract symptoms; N13.8 (unknown) (no (unknown) (unknown) OFFICE CYSTOSCOPY (units (unknown) date) male: unknown) (unknown) (no (unknown) (unknown) Office Procedures (units (unknown) date) unknown) (unknown) (no (unknown) (unknown) Orders (units (unkno wn) date) unknown) (unknown) (no (unknown) (unknown) Orders: (units (unkno wn) date) unknown) (unknown) (no (unknown) (unknown) 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 (unknown) (no (unknown) (unknown) Oxygen Delivery (units (unknown) date) Method room air unknown) (unknown) (no (unknown) (unknown) PFSH (units (unkno wn) date) unknown) (unknown) (no (unknown) (unknown) POC Urine Dip (units ( unknown) date) Today R33.9 - unknown) Retention of urine, unspecified (unknown) (no (unknown) (unknown) Patient: (units (unkno wn) date) Mario Alberto Stoddard unknown) MR#: [id number] (unknown) (no (unknown) (unknown) Photos taken: No (units (unknown) date) unknown) (unknown) (no (unknown) (unknown) Plan (units (unkno wn) date) unknown) (unknown) (no (unknown) (unknown) Position Sitting (units (unknown) date) unknown) (unknown) (no (unknown) (unknown) Procedure Notes: (units (unknown) date) unknown) (unknown) (no (unknown) (unknown) Procedure (units (unkn own) date) performed by: unknown) Clary Lewis (unknown) (no (unknown) (unknown) Prostate-5+ cm (units (unknown) date) length with unknown) obstructing trilobar hyperplasia. (unknown) (no (unknown) (unknown) Pulse 79 (units (unkno wn) date) unknown) (unknown) (no (unknown) (unknown) Pulse Oximetry (units (unknown) date) (%) 97 unknown) (unknown) (no (unknown) (unknown) Pulse Source (units (u nknown) date) Monitor unknown) (unknown) (no (unknown) (unknown) R33.9 - Retention (units (unknown) date) of urine, unknown) unspecified (unknown) (no (unknown) (unknown) ROS (units (unkno wn) date) unknown) (unknown) (no (unknown) (unknown) Reason For Visit (units (unknown) date) unknown) (unknown) (no (unknown) (unknown) Residual: post (units (unknown) date) void unknown) (unknown) (no (unknown) (unknown) Respiration 16 (units (unknown) date) unknown) (unknown) (no (unknown) (unknown) Results (units (unkno wn) date) unknown) (unknown) (no (unknown) (unknown) Review of (units (unkn own) date) clinical chart unknown) note history, patient data, operative history and (unknown) (no (unknown) (unknown) Reviewed (units (unkno wn) date) findings, unknown) discussed impression, provided reassurance regarding (unknown) (no (unknown) (unknown) S/P ureteral (units (u nknown) date) stent placement unknown) (unknown) (no (unknown) (unknown) Severe (units (unkno wn) date) trabeculation and unknown) cellule formation. Modest circumferential impingement (unknown) (no (unknown) (unknown) Signed By: (units (unk nown) date) <Electronically unknown) signed by Tessa Wood MD> (unknown) (no (unknown) (unknown) Signed (units (unkno wn) date) unknown) (unknown) (no (unknown) (unknown) Smoking Status: (units (unknown) date) Former smoker unknown) (unknown) (no (unknown) (unknown) Social History (units (unknown) date) (Reviewed 05/02/22 unknown) @ 11:25 by Tessa Wood MD) (unknown) (no (unknown) (unknown) Status: Acute (units ( unknown) date) unknown) (unknown) (no (unknown) (unknown) Surgical History (units (unknown) date) (Reviewed 05/02/22 unknown) @ 11:25 by Tessa Wood MD) (unknown) (no (unknown) (unknown) THROAT SWELLING (units (unknown) date) unknown) (unknown) (no (unknown) (unknown) The patient was (units (unknown) date) positioned supine unknown) and the lower abdomen, genitalia, and groin (unknown) (no (unknown) (unknown) This note may (units ( unknown) date) have been all or unknown) partially generated using voice recognition (unknown) (no (unknown) (unknown) Tobacco Status (units (unknown) date) unknown) (unknown) (no (unknown) (unknown) UTI (urinary (units (u nknown) date) tract infection) unknown) (unknown) (no (unknown) (unknown) Unchanged, normal (units (unknown) date) adult circumcised unknown) male external genitalia. (unknown) (no (unknown) (unknown) Urethra-normal (units (unknown) date) caliber without unknown) annular stricture or lesion. (unknown) (no (unknown) (unknown) Urine Appearance (units (unknown) date) Clear Last Edit by unknown) Clary Lewis RN on 05/02/22 10:32 (unknown) (no (unknown) (unknown) Urine Bilirubin (units (unknown) date) Negative Last Edit unknown) by Clary Lewis RN on 05/02/22 10:32 (unknown) (no (unknown) (unknown) Urine Blood (units (un known) date) Negative Last Edit unknown) by Clary Lewis RN on 05/02/22 10:32 (unknown) (no (unknown) (unknown) Urine Color (units (un known) date) Yellow Last Edit unknown) by Clary Lewis RN on 05/02/22 10:32 (unknown) (no (unknown) (unknown) Urine Dipstick (units (unknown) date) unknown) (unknown) (no (unknown) (unknown) Urine Glucose (units ( unknown) date) Negative mg/dL unknown) Last Edit by Clary Lewis RN on 05/02/22 10 (unknown) (no (unknown) (unknown) Urine Ketones (units ( unknown) date) Negative Last Edit unknown) by Clary Lewis RN on 05/02/22 10:32 (unknown) (no (unknown) (unknown) Urine Leukocyte (units (unknown) date) Esterase Negative unknown) Last Edit by Clary Lewis RN on 05/02 (unknown) (no (unknown) (unknown) Urine Nitrate (units ( unknown) date) Negative Last Edit unknown) by Clary Lewis RN on 05/02/22 10:32 (unknown) (no (unknown) (unknown) Urine Protein (units ( unknown) date) Negative Last Edit unknown) by Clary Lewis RN on 05/02/22 10:32 (unknown) (no (unknown) (unknown) Urine Specific (units (unknown) date) [place] 1.025 Last unknown) Edit by Clary Lewis RN on 05/02/22 (unknown) (no (unknown) (unknown) Urine (units (unkno wn) date) Urobilinogen - 0.2 unknown) mg/dL Last Edit by Clary Lewis RN on (unknown) (no (unknown) (unknown) Urine pH 6.0 Last (units (unknown) date) Edit by Clary unknown) JOSE Lewis on 05/02/22 10:32 (unknown) (no (unknown) (unknown) Urology Office (units (unknown) date) Visit unknown) (unknown) (no (unknown) (unknown) VITAMIN D (units (unkn own) date) (Vitamin D3) 1,000 unknown) unit PO QDAY ##0 10/29/12 [History Confirmed (unknown) (no (unknown) (unknown) Visit Reasons: (units (unknown) date) BTS Cysto/PVR unknown) (unknown) (no (unknown) (unknown) Vitals (units (unkno wn) date) unknown) (unknown) (no (unknown) (unknown) Z85.51 - Personal (units (unknown) date) history of unknown) malignant neoplasm of bladder (unknown) (no (unknown) (unknown) Z87.440 - (units (unkn own) date) Personal history unknown) of urinary (tract) infections (unknown) (no (unknown) (unknown) a small amount of (units (unknown) date) dependent debris unknown) within the bladder floor. No evidence of (unknown) (no (unknown) (unknown) a small (units (unkno wn) date) recurrence at the unknown) margin and near the left ureteral orifice status post (unknown) (no (unknown) (unknown) alcohol intake: (units (unknown) date) current unknown) (unknown) (no (unknown) (unknown) apixaban 2.5 mg (units (unknown) date) tablet (Eliquis) unknown) 2.5 mg PO BID 09/09/20 [History Confirmed (unknown) (no (unknown) (unknown) assistance lower (units (unknown) date) tract flexible unknown) endoscopy was performed with the findings as (unknown) (no (unknown) (unknown) ay occur. (units (unkn own) date) Occasional unknown) wrong-word or 'sound-alike' substitutions may have (unknown) (no (unknown) (unknown) but patient (units (un known) date) states that he unknown) only voided enough to provide the urine specimen and (unknown) (no (unknown) (unknown) caffeine: Yes (units ( unknown) date) unknown) (unknown) (no (unknown) (unknown) carvedilol 25 mg (units (unknown) date) tablet (Coreg) 25 unknown) mg PO BID 02/01/21 [History Confirmed (unknown) (no (unknown) (unknown) complaints, (units (un known) date) hematuria, or unknown) dysuria. Urinalysis today is clear. PVR is 267 cc, (unknown) (no (unknown) (unknown) described below. (units (unknown) date) unknown) (unknown) (no (unknown) (unknown) did not void to (units (unknown) date) completion. unknown) (unknown) (no (unknown) (unknown) duasteride (units (unk nown) date) Adverse Reaction unknown) (Unknown, Uncoded 05/02/22 10:30) (unknown) (no (unknown) (unknown) endoscopic (units (unk nown) date) findings today. unknown) Discussed follow-up. (unknown) (no (unknown) (unknown) finasteride 5 mg (units (unknown) date) tablet 5 mg PO unknown) DAILY #90 tabs 01/24/22 [Rx Confirmed 05/02/22] (unknown) (no (unknown) (unknown) for attempt at (units (unknown) date) complete bladder unknown) emptying. (unknown) (no (unknown) (unknown) have occurred. If (units (unknown) date) there are any unknown) questions, please contact the Medical Records (unknown) (no (unknown) (unknown) levothyroxine 50 (units (unknown) date) mcg tablet unknown) (Synthroid) 50 mcg PO QDAY ##0 10/14/12 [History (unknown) (no (unknown) (unknown) marital status: (units (unknown) date) unknown) (unknown) (no (unknown) (unknown) occurred due to (units (unknown) date) the inherent unknown) limitations of voice recognition software. Please (unknown) (no (unknown) (unknown) pathology reports (units (unknown) date) for encounter-10 unknown) minutes (unknown) (no (unknown) (unknown) prescribed. (units (un known) date) unknown) (unknown) (no (unknown) (unknown) read the note (units ( unknown) date) carefully and unknown) recognize, using context, where these substitutions (unknown) (no (unknown) (unknown) repeat TURBT (units (u nknown) date) 05/03/2020. He is unknown) had negative BT S cystoscopy since then. (unknown) (no (unknown) (unknown) software. 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 (unknown) (no (unknown) (unknown) the bladder neck (units (unknown) date) due to prostate unknown) and small protrusion of median lobe. 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 He then had (unknown) (no (unknown) (unknown) were prepped and (units (unknown) date) draped in sterile unknown) fashion. ?Using sterile technique and video Social History date description facility +0000 Ex-smoker (finding) [facility] Vital Signs date measurement value units +0000 BP_diastolic BP_diastolic 99 mmHg [id number]+0000 BP_systolic BP_systolic 156 mmHg [id number]+0000 heart_rate heart_rate 79 /min [id number]+0000 o2_saturation o2_saturation 97 % +0000 respiration_rate respiration_rate 16 /min
--- NOTE | 2022-05-24 16:29 | CT Report ---
PROCEDURE: Head W/O Stroke Protocol INDICATIONS: slurred speech TECHNIQUE: Noncontrast 4.5 mm thick angled axial sections acquired from the foramen magnum to the vertex, with c oronal reformats. For radiation dose reduction, the following was used: automated exposure control, adjustment of mA and/or kV according to patient size. COMPARISON: 10/10/2021, 06/13/2019. Correlation is made with the accompanying head CT angiogram and n cassandra CT angiogram, 05/24/2022. FINDINGS: Image quality: Motion artifact is noted. There is streak artifact seen through the skull base. Th ere is artifact associated with the metallic hardware. CSF spaces: Basal cisterns are patent. No extra-axial fluid collections. Ventricles are normal in size and shape. Brain: No midline shift. No intracranial masses or hemorrhage. Reece-white matter interface is norm al. Skull and face: Calvarium and visualized facial bones are intact, without suspicious lesions. Sinuses: Visualized sinuses and mastoids are clear. IMPRESSION: No intracranial hemorrhage is seen. No significant intracranial abnormality is seen. Age-appropriate brain parenchymal volume loss and chronic small vessel ischemic change can be seen. Note: Case discussed by telephone with Dr. Moe at 3:28 PM [place] time on 05/24/2022. This study fulfills neurological imaging criteria for inclusion or exclusion of acute stroke therapie s based on available published neurological imaging guidelines. Reviewed by: Clayton Causey MD on 05/24/2022 3:28 PM [place] Approved by: Clayton Causey MD on 05/24/2022 3:28 PM [place] Station ID: [id number]
--- NOTE | 2022-05-24 16:34 | CT Report ---
PROCEDURE: ANGIO NECK W INDICATIONS: slurred speech CONTRAST: 80mL Omni 300 TECHNIQUE: After the administration of intravenous contrast, 1.5 mm axial sections acquired from the aortic arch to the [place] of [place]. Coronal 3-D maximum intensity projection (MIP) and/or volume rendering ref ormats were then performed. For radiation dose reduction, the following was used: automated exposur e control, adjustment of mA and/or kV according to patient size. COMPARISON: Correlation is made with the accompanying head CT and head CT angiogram, 05/24/2022. Cor relation is made with cervical spine CT examinations and 06/13/2019. FINDINGS: Image quality: There is artifact associated with the metallic hardware. Carotid system: The great vessels demonstrate a conventional anatomy as they arise from the aortic a rch. The origins of the common carotid arteries appear patent. The common carotid arteries demonstr ate normal calibers and courses. The bifurcation regions demonstrate moderate atherosclerotic calcif ication, yet without a hemodynamically significant stenosis. The more distal internal carotid arterie s demonstrate normal course and caliber. Posterior circulation: The origins of the vertebral arteries appear patent. The more superior extra cranial portions of the vertebral arteries demonstrate normal course and caliber. The left vertebral artery is dominant to the right. Soft tissues: Visualized neck soft tissues demonstrate no suspicious abnormalities. The thyroid is normal in size and there are no incidental findings. Bones: No suspicious bony lesions. Visualized cervical spine appears normally aligned. Cervical s pine postoperative changes are seen, with bilateral pedicle screws posteriorly at C1, C2, and C3. A r emote, healed dens fracture can be seen. There has been removal of portions of the posterior elements . Degenerative changes are seen, which are worst inferiorly. IMPRESSION: No hemodynamically significant stenosis can be seen within the arteries of the neck. Additional findings: Upper cervical spine postoperative change Remote, healed dens fracture Focal lower cervical spine degenerative change The estimate of stenosis included in the report of the imaging study was calculated using the NASCET method Reviewed by: Clayton Causey MD on 05/24/2022 3:32 PM [place] Approved by: Clayton Causey MD on 05/24/2022 3:32 PM [facility] Station ID: [id number]
--- NOTE | 2022-05-24 16:36 | CT Report ---
PROCEDURE: ANGIO HEAD W/WO INDICATIONS: slurred speech CONTRAST: 80mL Omni 300 TECHNIQUE: Precontrast 4.5 mm thick angled axial sections acquired from the foramen magnum to the vertex. Afte r the administration of intravenous contrast, 1 mm thick sections acquired through the [place] of [place] is. Postcontrast 4.5 mm thick sections then re-acquired from the foramen magnum to the vertex. 3-di mensional obtubss-vmsrqiari-pgcksytkdj (MIP) and/or volume rendering reformats were acquired of the c entral intracranial vasculature. For radiation dose reduction, the following was used: automated ex posure control, adjustment of mA and/or kV according to patient size. COMPARISON: Correlation head CT and neck CT angiogram, 05/24/2022. Correlation is made with prior he ad CT, 10/10/2021. FINDINGS: Image quality: Excellent. Anterior circulation: Intracranial internal carotid arteries are normal in size and flow. The flow within the paired anterior cerebral arteries is normal and symmetric. The flow within the middle cer ebral arteries is normal and symmetric. The anterior communicating artery is seen. No aneurysms are seen. Posterior circulation: The left vertebral artery is dominant to the right. Within the proximal V4 seg ment, there is focal calcification seen, with proximal a 60% luminal narrowing. Normal appearing basi lar artery. Flow within the posterior cerebral arteries is normal and symmetric. No aneurysms are s een. CSF spaces: Ventricles are normal in size and shape. Basal cisterns are patent. No extra-axial flu id collections. Brain: No midline shift. No intracranial bleeds or masses. Reece-white matter interface appears int act. Skull and face: Calvarium and facial bones appear intact, without suspicious lesions. Sinuses: Visualized sinuses and mastoids are clear. 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 Otherwise, no significant intracranial stenosis is seen. Reviewed by: Clayton Causey MD on 05/24/2022 3:35 PM [place] Approved by: Clayton Causey MD on 05/24/2022 3:35 PM [place] Station ID: [id number]
--- NOTE | 2022-05-24 17:23 | ED Physician Documentation ---
PD HPI FOCAL NEURO - Stated complaint Stated Complaint: SLURRED SPEECH, CONFUSED - Chief complaint Chief Complaint: Neuro - History obtained from History obtained from: Patient (Limited from the patient as he is very hard of hearing), Family (Patient's ) - Additional information Additional information: Patient is an 87-year-old male with a history of atrial fibrillation (on Eliquis) presenting for evaluation of Slurred speech and word finding difficulties that were noticed by his when he woke up from a nap at 3 PM.He was last known to be normal around noon time. Patient reports that when he woke up from his nap he felt dizzy and had a fall and this is also when his noticed that he was having trouble with his words and speech. He denies hitting his head or LOC.Patient has not had any weakness to his arms or legs. Review of Systems Constitutional: denies: Fever Cardiac: denies: Chest pain / pressure Respiratory: denies: Dyspnea GI: denies: Abdominal Pain Musculoskeletal: denies: Neck pain Neurologic: denies: Syncope, Headache PD PAST MEDICAL HISTORY - Past Medical History Cardiovascular: High cholesterol, Atrial fibrillation Endocrine/Autoimmune: HyPOthyroidism GI: GERD : None HEENT: None Musculoskeletal: Fibromyalgia Derm: None - Past Surgical History Past Surgical History: Yes General: Hiatal hernia repair Ortho: Hip replacement - Present Medications Home Medications: Ambulatory Orders Medication Instructions Recorded Confirmed Carvedilol 6.25 mg ORAL BID 05/21/16 05/24/22 Levothyroxine [Synthroid] 50 mcg ORAL DAILY 05/21/16 05/24/22 Apixaban [Eliquis] 2.5 mg DAILY 11/26/19 05/24/22 - Allergies Allergies/Adverse Reactions: Allergies Allergy/AdvReac Type Severity Reaction Status Date / Time hazelnut Allergy Unknown Verified 05/24/22 15:23 - Social History Does the pt smoke?: No Smoking Status: Never smoker Does the pt drink ETOH?: Yes Does the pt have substance abuse?: No - Immunizations Immunizations are current?: Yes - POLST Patient has POLST: No PD ED PE NORMAL - General General: Alert and oriented X 3, No acute distress, Well developed/nourished - HEENT HEENT: Atraumatic, PERRL, EOMI, Pharynx benign - Neck Neck: Supple, no meningeal sign, No bony TTP - Cardiac Cardiac: Other (Regular rate, irregularly irregular) - Respiratory Respiratory: No respiratory distress, Clear bilaterally - Abdomen Abdomen: Soft, Non tender - Derm Derm: Warm and dry - Neuro Neuro: Alert and oriented X 3, 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, No motor deficit, No sensory deficit, Normal speech, Other (Normal [id number] bilaterally) NIHSS - Level of Consciousness Level of consciousness: (0) Alert, Keenly responsive LOC Questions: (0) Answers both Q's correct LOC Commands: (0) Performs both correctly - Gaze Best Gaze: (0) Normal - Visual Visual: (0) No loss - Facial Palsy Facial Palsy: (0) Normal, symmetrical movement - Motor Arms (both separate) Motor Arm (right): (0) No drift Motor Arm (left): (0) No drift - Motor Legs (both separate) Motor Leg (right): (0) No drift Motor Leg (left): (0) No drift - Limb Ataxia Limb Ataxia: (0) Absent - Sensory Sensory: (0) Normal - Best Language Best Language: (0) No aphasia - Dysarthria Dysarthria: (0) Normal - Extinction and Inattention (formally neg Extinction and inattention: (0) No abnormality - Total Score/Results Total Score/Result: 0 Results - Vitals Vitals: Vital Signs - 24 hr 05/24/22 05/24/22 05/24/22 15:19 16:19 18:37 Temperature 36 C L Heart Rate 75 75 82 Respiratory 15 13 19 Rate Blood Pressure 173/89 H 148/94 H 172/98 H O2 Saturation 98 100 100 05/24/22 20:27 Temperature Heart Rate 87 Respiratory 15 Rate Blood Pressure 170/115 H O2 Saturation 99 Oxygen O2 Source Room air - EKG (time done) 1531 Rate: Rate (enter#) (82) Rhythm: Atrial fibrillation [employer]: Normal Ischemia: No: ST elevation c/w ischemia - Labs Labs: Laboratory Tests 05/24/22 05/24/22 05/24/22 15:35 15:35 18:33 WBC 8.9 RBC 5.41 Hgb 16.4 Hct 50.3 MCV 93.0 MCH 30.3 MCHC 32.6 RDW 14.3 Plt Count 155 MPV 11.5 H Neut # (Auto) 4.9 Lymph # (Auto) 2.8 [place] # (Auto) 1.0 Eos # (Auto) 0.3 Baso # (Auto) 0.1 Absolute Nucleated RBC 0.00 Nucleated RBC % 0.0 PT 14.2 H INR 1.3 H Sodium 140 Potassium 4.2 Chloride 103 Carbon Dioxide 27 Anion Gap 10.0 BUN 27 H Creatinine 1.1 Estimated GFR (MDRD) 64 L Glucose 98 Calcium 9.7 Total Bilirubin 0.7 AST 25 ALT 26 Alkaline Phosphatase 94 Total Protein 8.3 H Albumin 4.3 Globulin 4.0 Albumin/Globulin Ratio 1.1 PD MEDICAL DECISION MAKING - ED course Complexity details: reviewed results, re-evaluated patient, d/w patient, d/w family ED course: Patient presenting for evaluation of abnormal speech and possible confusion versus word finding difficulty after waking up from a nap. His symptoms resolved in less than an hour and by the time I examined him here.He did have a brief episode of lightheadedness which caused him to fall at home. His CT and angios were reviewed. An MRI is pending. He does have a history of A. fib and is anticoagulated on Eliquis. He has been without any other symptoms here.Patient is signed out to Dr. Reis pending results of MRI And reevaluation. If MRI is negative, expect patient can be discharged home. 1848 - D/W Dr. Lundy (Neuro at [place]). Reviewed patient's presentation along with CT and angios. Reviewed stenosis seen at V4.Intervention is not needed at this time For this lesion. Departure - Departure Disposition: 01 Home, Self Care Clinical Impression: TIA (transient ischemic attack) Atrial fibrillation Qualifiers: Atrial fibrillation type: unspecified Qualified Code(s): I48.91 - Unspecified atrial fibrillation Condition: Stable Instructions: ED Afib, ED Transient Ischemic Attack Comments: It is not exactly clear what caused your symptoms today. Your MRI actually shows no evidence of oxygen deprivation to the brain so well the symptoms seem convincing for a very temporary, mini stroke, it is possible that it was not a stroke at all. No other concerning cause of your symptoms has been found, however, and you may follow-up with your primary doctor. Please continue your medications at home, as usual. Discharge Date/Time: 05/24/22 20:53
[2022-05-24 18:55] LABS: INR 1.3 (0.8-1.2); PT - PROTHROMBIN TIME 14.2 secs (9.9-12.6)
--- NOTE | 2022-05-24 19:38 | MRI Report ---
PROCEDURE: BRAIN WO INDICATIONS: slurred speech/word finding difficulty TECHNIQUE: Noncontrast axial T1 spin echo, axial T2 fast spin echo, sagittal and axial FLAIR, coronal T2 fast sp in echo, axial gradient echo, axial diffusion and ADC through the brain. COMPARISON: None. FINDINGS: Image quality: Excellent. CSF Spaces: Basal cisterns are patent. No extra-axial fluid collections. Ventricles are normal in size and shape. Brain: No intracranial masses or hemorrhage. Reece/white matter interface is normal. Brainstem appe ars normal. Diffusion-weighted images demonstrate no acute ischemic insult. No chronic ischemic ins ults. Diffuse age-related white matter changes. Normal intravascular flow voids are present. Skull and face: Calvarium has normal marrow signal. Orbits appear normal. Sinuses: Sinuses and mastoids are clear. IMPRESSION: 1. No acute ischemia. 2. Diffuse age-related white matter changes. Reviewed by: Brie Winslow MD on 05/24/2022 7:37 PM PST Approved by: Brie Winslow MD on 05/24/2022 7:37 PM PST Station ID: [id number]
[2022-05-24 20:28] VITALS: BP 170/115
--- NOTE | 2022-05-24 20:39 | ED Physician Documentation ---
ED Addendum - Addendum Addendum: 05/24/22 20:38 The patient was signed out to me by Dr. Moe at change of shift, pending MRI, after presenting to the emergency department with TIA like symptoms. The patient symptoms had completely resolved and he had no complaints after Being signed out. His MRI was negative. I felt he was stable for discharge home. We have discussed the need for follow-up and also, the need for return if further concerns develop. Final impression: 1. Atrial fibrillation 2. TIA Disposition: Home in stable and improved condition
== END 2022-05-24 20:53 | disposition home or self-care (01) ==
LOC: ED 15:11
DX: G45.9 Transient cerebral ischemic attack, unspecified (principal); I48.91 Unspecified atrial fibrillation; Z79.01 Long term (current) use of anticoagulants
CPT/HCPCS: 36415; 70450; 70496; 70498; 70551; 80053; 85025; 85610; 93005; 99283; 99284; Q9967

== ENCOUNTER 2023-04-10 16:26 | Emergency (ER) | payer MEDICARE, OTHER ==
--- NOTE | 2023-04-10 16:58 | ED Physician Documentation ---
PD HPI FOCAL NEURO - Stated complaint Stated Complaint: SLURRED SPEECH,CONFUSION - Chief complaint Chief Complaint: Neuro - History obtained from History obtained from: Patient, Family - Additional information Additional information: 87-year-old gentleman presents with . He has a history of A-fib and is on Eliquis. He states he has no history of TIA, but he was here in April of last year for what certainly sounds like a TIA. Today at noon he developed slurred speech and felt "goofy" and "dinghy." And his noticed that he was slurring his speech but that is now gone. She estimates the slurred speech lasted 2 hours. PD PAST MEDICAL HISTORY - Past Medical History Cardiovascular: High cholesterol, Atrial fibrillation Endocrine/Autoimmune: HyPOthyroidism GI: GERD : None HEENT: None Musculoskeletal: Fibromyalgia Derm: None - Past Surgical History Past Surgical History: Yes General: Hiatal hernia repair Ortho: Hip replacement - Present Medications Home Medications: Ambulatory Orders Medication Instructions Recorded Confirmed Carvedilol 6.25 mg ORAL BID 05/21/16 05/24/22 Levothyroxine [Synthroid] 50 mcg ORAL DAILY 05/21/16 05/24/22 Apixaban [Eliquis] 2.5 mg DAILY 11/26/19 05/24/22 - Allergies Allergies/Adverse Reactions: Allergies Allergy/AdvReac Type Severity Reaction Status Date / Time hazelnut Allergy Unknown Verified 05/24/22 15:23 - Social History Does the pt smoke?: No Smoking Status: Never smoker Does the pt drink ETOH?: Yes Does the pt have substance abuse?: No - Immunizations Immunizations are current?: Yes - POLST Patient has POLST: No PD ED PE NORMAL - Vitals Vital signs reviewed: Yes - General General: Alert and oriented X 3, No acute distress, Other (He is quite hard of hearing) - HEENT HEENT: PERRL, EOMI - Neck Neck: Supple, no meningeal sign, No bony TTP - Cardiac Cardiac: Other (Irregularly irregular without murmur) - Respiratory Respiratory: No respiratory distress, Clear bilaterally - Extremities Extremities: No edema, No calf tenderness / cord - Neuro Neuro: Alert and oriented X 3 - Psych Psych: Normal mood, Normal affect NIHSS - Time Time: 16:50 - Level of Consciousness Level of consciousness: (0) Alert, Keenly responsive LOC Questions: (0) Answers both Q's correct LOC Commands: (0) Performs both correctly - Gaze Best Gaze: (0) Normal - Visual Visual: (0) No loss - Facial Palsy Facial Palsy: (0) Normal, symmetrical movement - Motor Arms (both separate) Motor Arm (right): (0) No drift Motor Arm (left): (0) No drift - Motor Legs (both separate) Motor Leg (right): (0) No drift Motor Leg (left): (0) No drift - Limb Ataxia Limb Ataxia: (0) Absent - Sensory Sensory: (0) Normal - Best Language Best Language: (0) No aphasia - Dysarthria Dysarthria: (0) Normal - Extinction and Inattention (formally neg Extinction and inattention: (0) No abnormality - Total Score/Results Total Score/Result: 0 Results - Vitals Vitals: Vital Signs - 24 hr 04/10/23 04/10/23 04/10/23 16:43 16:49 17:19 Temperature 36 C L 36.5 C Heart Rate 67 67 66 Respiratory 16 16 14 Rate Blood Pressure 186/101 H 186/101 H 180/100 H O2 Saturation 98 98 96 04/10/23 04/10/23 04/10/23 17:30 18:00 18:30 Temperature 36.5 C Heart Rate 76 80 80 Respiratory 14 12 12 Rate Blood Pressure 179/100 H 170/90 H 160/88 H O2 Saturation 94 98 100 Oxygen O2 Source Room air - EKG (time done) 1658 EKG releavant findings:: EKG personally interpreted by author of this note. Relevant findings are: Rate: Rate (enter#) (65) Rhythm: Atrial fibrillation [place]: Normal Intervals: Normal NH QRS: Normal Ischemia: Non specific changes. No: ST elevation c/w ischemia, ST depression Computer interpretation: Agree with computer - Labs Labs: Laboratory Tests 04/10/23 04/10/23 04/10/23 17:03 17:03 17:03 WBC 7.7 RBC 5.16 Hgb 15.5 Hct 47.7 MCV 92.4 MCH 30.0 MCHC 32.5 RDW 14.2 Plt Count 154 MPV 11.3 Neut # (Auto) 4.5 Lymph # (Auto) 2.1 [place] # (Auto) 0.8 Eos # (Auto) 0.2 Baso # (Auto) 0.1 Absolute Nucleated RBC 0.00 Nucleated RBC % 0.0 PT 14.3 H INR 1.3 H Sodium 137 Potassium 4.3 Chloride 104 Carbon Dioxide 30 Anion Gap 3.0 L BUN 25 H Creatinine 1.2 Estimated GFR (MDRD) 58 L Glucose 97 Calcium 9.9 Total Bilirubin 0.5 AST 19 ALT 19 Alkaline Phosphatase 85 Total Protein 7.1 Albumin 4.1 Globulin 3.0 Albumin/Globulin Ratio 1.4 Lipase 37 - Rads (name of study) CT of the head/CTA of the neck, chronic ischemic changes, nothing acute and chronic stenosis right V4 vertebral artery and diffuse mild atheroscleroti Relevant Findings:: Final report received, EMP independent interpretation of test PD Medical Decision Making - ED course ED course: 87-year-old gentleman who has TIA symptoms resolved tonight. Multiple contraindications to tPA including resolving symptoms, NIH stroke scale of 0, current anticoagulation, and arriving right at the 4-1/2-hour maria victoria precluding ability to do complete work-up prior to the 4-1/2-hour maria victoria. CBC and CMP normal/negative except mild elevation in BUN. INR somewhat elevated at 1.3 likely related to Eliquis use. Discussed need for rapid follow-up with PCP for blood pressure recheck and other risk factor control, otherwise he is maximally medically managed. CTA without intervenable stenosis or vascular issue. Departure - Departure Disposition: 01 Home, Self Care Clinical Impression: TIA (transient ischemic attack) Condition: Good Record reviewed to determine appropriate education?: Yes Instructions: ED Transient Ischemic Attack Comments: You were seen today for TIA, TIAs and strokes are common in folks who have A- fib, even if they are anticoagulated. Make sure you continue your blood thinner and follow-up with your PCP in the next 2 days for blood pressure recheck. Return for new or worsening symptoms. Forms: PCP List
[2023-04-10 17:08] LABS: BASOPHILS # (AUTO) 0.1 10^3/uL (0.0-0.1); BASOPHILS % (AUTO) 0.7 %; EOSINOPHILS # (AUTO) 0.2 10^3/uL (0.0-0.7); EOSINOPHILS % (AUTO) 2.3 %; HCT - HEMATOCRIT 47.7 % (42.0-52.0); HGB - HEMOGLOBIN 15.5 g/dL (14.0-18.0); LYMPHOCYTES # (AUTO) 2.1 10^3/uL (1.5-3.5); LYMPHOCYTES % (AUTO) 27.5 %; MEAN CORPUSCULAR HGB CONC 32.5 g/dL (32.0-36.0); MEAN CORPUSCULAR VOLUME 92.4 fL (80.0-94.0); MEAN PLATELET VOLUME 11.3 fL (7.4-11.4); MONOCYTES # (AUTO) 0.8 10^3/uL (0.0-1.0); MONOCYTES % (AUTO) 10.7 %; NEUTROPHILS # (AUTO) 4.5 10^3/uL (1.5-6.6); NEUTROPHILS % (AUTO) 58.5 %; PLT - PLATELET COUNT 154 10^3/uL (130-450); RED BLOOD COUNT 5.16 10^6/uL (4.70-6.10); RED CELL DISTRIBUTION WIDTH 14.2 % (12.0-15.0); WHITE BLOOD COUNT 7.7 x10^3/uL (4.8-10.8)
[2023-04-10 17:15] LABS: INR 1.3 (0.8-1.2); PT - PROTHROMBIN TIME 14.3 secs (9.9-12.6)
[2023-04-10 17:22] LABS: ALBUMIN 4.1 g/dL (3.2-5.5); ALBUMIN/GLOBULIN RATIO 1.4 (1.0-2.2); BILIRUBIN,TOTAL 0.5 mg/dL (0.2-1.0); CALCIUM 9.9 mg/dL (8.5-10.3); CREATININE 1.2 mg/dL (0.6-1.3); POTASSIUM 4.3 mmol/L (3.5-4.5); TOTAL PROTEIN 7.1 g/dL (6.4-8.9)
[2023-04-10] MEDS ORDERED: iohexoL-300 100 ML VIAL IVP ONE (18:44)
--- NOTE | 2023-04-10 19:31 | CT Report ---
PROCEDURE: HEAD WO INDICATIONS: Neuro deficit, acute, stroke suspected TECHNIQUE: Noncontrast 4.5 mm thick angled axial sections acquired from the foramen magnum to the vertex. For r adiation dose reduction, the following was used: automated exposure control, adjustment of mA and/or kV according to patient size. COMPARISON: CT and MRI 05/24/2022. FINDINGS: Image quality: Excellent. CSF spaces: Basal cisterns are patent. No extra-axial fluid collections. Ventricles are symmetric in size and shape. Brain: No midline shift. No intracranial masses or hemorrhage. Hypodensities in the subcortical and periventricular white matter are most commonly seen in setting of chronic microvascular ischemic sheree nges. Age-related cerebral and cerebellar volume loss is seen. Intracranial vascular calcifications a re noted in the internal carotid arteries. Skull and face: Calvarium and visualized facial bones are intact, without suspicious lesions. Sinuses: Visualized sinuses and mastoids are clear. IMPRESSION: 1.No acute intracranial pathology. 2.Chronic microvascular ischemic changes and mild generalized parenchymal volume loss. Reviewed by: Cameron Romeo MD on 04/10/2023 7:29 PM PDT Approved by: Cameron Romeo MD on 04/10/2023 7:29 PM PDT Station ID: [id number]
--- NOTE | 2023-04-10 19:44 | CT Report ---
PROCEDURE: CT Angio Head/Neck INDICATIONS: stroke sx TECHNIQUE: After the administration of intravenous contrast, 1 mm thick sections acquired from the aortic arch t hrough the [place] of [place]. Post-contrast 4.5 mm thick sections then re-acquired from the foramen m agnum to the vertex. 3-dimensional ainzwzc-uypftvryz-qlcdlwlygq (MIP) and/or volume rendering reform ats were acquired of the central intracranial vasculature and neck separately. For radiation dose re duction, the following was used: automated exposure control, adjustment of mA and/or kV according to patient size. CONTRAST: 80 and Omnipaque 300 COMPARISON: CTA head and neck 05/24/2022 FINDINGS: Image quality: Dental and cervical fusion hardware demonstrated marked streak artifact at the level o f C2 that obscures adjacent structures. BRAIN: CSF spaces: Ventricles are normal in size and shape. Basal cisterns are patent. No extra-axial flu id collections. Brain: No midline shift. No acute intracranial hemorrhage or mass effect. Chronic microvascular isch emic changes and parenchymal volume loss. Skull and face: Calvarium and facial bones appear intact, without suspicious lesions. Orbits appear normal. Sinuses: Sinuses and mastoids are clear. HEAD CT ANGIOGRAPHY: Anterior circulation: Intracranial internal carotid arteries demonstrate mild atherosclerotic calcif ications without hemodynamically significant stenosis.. The flow within the paired anterior cerebral arteries is normal and symmetric. The flow within the middle cerebral arteries is normal and symmet phyllis. The anterior communicating artery is seen. No aneurysms are seen. Posterior circulation: Focal calcified atherosclerotic plaque at the cranial portion of the right martha tebral artery resulting in focal 60% stenosis, no significant change when compared to the exam from 07/24/2021. Mild atherosclerotic calcifications are seen at the intracranial portions of the left vert ebral artery without hemodynamically significant stenosis. Visualized portions of the vertebral arter ies demonstrate normal caliber, and join to form a normal appearing basilar artery. Flow within the posterior cerebral arteries is normal and symmetric. No aneurysms are seen. NECK CT ANGIOGRAPHY: Carotid system: The great vessels demonstrate a conventional anatomy as they arise from the aortic a rch. The origins of the common carotid arteries appear patent. The common carotid arteries demonstr ate normal caliber and courses. Calcified atherosclerotic plaque is seen at the bilateral carotid bif urcations without hemodynamically significant stenosis of the proximal internal carotid arteries. The internal carotid arteries demonstrate normal calibers and courses. Posterior circulation: The origins of the vertebral arteries both appear widely patent. Left verteb ral artery is congenitally dominant. The more superior extracranial portions of both vertebral arteri es also demonstrate normal courses and calibers. Focal calcified atherosclerotic plaque is seen at the intracranial portion of the right vertebral artery resulting in approximately 60% stenosis, no s ignificant change when compared to 05/24/2022. Mild discogenic calcifications are seen in the intracr anial portion of the left vertebral artery without hemodynamically significant stenosis. Soft tissues: Visualized neck soft tissues demonstrate no suspicious abnormalities. Bones: No suspicious bony lesions. Postsurgical and degenerative changes are again noted in the cer vical spine. 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 2.Additional mild atherosclerotic disease in the head and neck without hemodynamically significant st enosis. The estimate of stenosis included in the report of the imaging study was calculated using the NASCET method Reviewed by: Cameron Romeo MD on 04/10/2023 7:42 PM PDT Approved by: Cameron Romeo MD on 04/10/2023 7:42 PM PDT Station ID: [id number]
[2023-04-10 20:00] VITALS: BP 164/101; O2SAT 95
== END 2023-04-10 19:56 | disposition home or self-care (01) ==
LOC: ED 16:26
DX: G45.9 Transient cerebral ischemic attack, unspecified (principal); I48.91 Unspecified atrial fibrillation; Z79.01 Long term (current) use of anticoagulants
CPT/HCPCS: 36415; 70450; 70496; 70498; 80053; 83690; 85025; 85610; 93005; 99283; 99284; Q9967

== ENCOUNTER 2023-07-12 20:44 | Emergency (ER) | payer MEDICARE, OTHER ==
[2023-07-12 21:03] VITALS: BP 150/90; O2SAT 92
[2023-07-12 21:07] LABS: BILIRUBIN,URINE NEGATIVE (NEGATIVE); GLUCOSE, URINE (UA) NEGATIVE (NEGATIVE); KETONES,URINE (UA) TRACE mg/dL (NEGATIVE); LEUKOCYTE ESTERASE, URINE SMALL (NEGATIVE); NITRITE,URINE POSITIVE (NEGATIVE); OCCULT BLOOD,URINE LARGE (NEGATIVE); PH,URINE 6.5 PH (5.0-7.5); PROTEIN,URINE >=300 mg/dL (NEGATIVE); UROBILINOGEN,URINE 1 (NORMAL) E.U./dL (NORMAL)
[2023-07-12 21:11] LABS: BACTERIA,URINE None Seen /HPF (None Seen); CLARITY,URINE TURBID (CLEAR); RBC,URINE TNTC /HPF (0-5); SQUAMOUS EPITHELIAL CELL,UR NONE SEEN (<= Few); WBC,URINE >25 /HPF (0-3)
--- NOTE | 2023-07-12 21:20 | ED Physician Documentation ---
History of Present Illness - Stated complaint Stated Complaint: BLOOD IN URINE - Chief complaint Chief Complaint: Abd Pain - History obtained from History obtained from: Patient - History of Present Illness Timing: Today Pain level max: 0 Pain level now: 0 - Additonal information Additional information: 88-year-old male presents to the emergency department hematuria tonight. He has had dysuria starting today as well. Has never had a prior urinary tract infection. 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 He is on Eliquis. No abdominal pain, back pain, chest pain. No fevers. No chills. He states dark red urine tonight. Denies any falls or trauma. Review of Systems Constitutional: denies: Fever, Chills Skin: denies: Rash Musculoskeletal: denies: Neck pain, Back pain Neurologic: denies: Headache PD PAST MEDICAL HISTORY - Past Medical History Past Medical History: Yes Cardiovascular: High cholesterol, Atrial fibrillation Endocrine/Autoimmune: HyPOthyroidism GI: GERD : None HEENT: None Musculoskeletal: Fibromyalgia Derm: None - Past Surgical History Past Surgical History: Yes General: Hiatal hernia repair Ortho: Hip replacement - Present Medications Home Medications: Ambulatory Orders Medication Instructions Recorded Confirmed Carvedilol 6.25 mg ORAL BID 05/21/16 07/12/23 Levothyroxine [Synthroid] 50 mcg ORAL DAILY 05/21/16 07/12/23 Apixaban [Eliquis] 5 mg PO BID 11/26/19 07/12/23 Finasteride [Proscar] 5 mg PO DAILY 07/12/23 07/12/23 cephALEXin [Keflex] 500 mg PO Q6H #28 cap 07/12/23 - Allergies Allergies/Adverse Reactions: Allergies Allergy/AdvReac Type Severity Reaction Status Date / Time hazelnut Allergy Unknown Verified 07/12/23 20:47 - Social History Does the pt smoke?: No Smoking Status: Never smoker Does the pt drink ETOH?: Yes Does the pt have substance abuse?: No - Immunizations Immunizations are current?: Yes - POLST Patient has POLST: No PD ED PE NORMAL - Vitals Vital signs reviewed: Yes - General General: Alert and oriented X 3, No acute distress - HEENT HEENT: Moist mucous membranes - Neck Neck: Supple, no meningeal sign - Cardiac Cardiac: RRR - Respiratory Respiratory: No respiratory distress, Clear bilaterally - Abdomen Abdomen: Soft, Non tender, Non distended - Back Back: No CVA TTP, No spinal TTP - Derm Derm: Warm and dry - Neuro Neuro: Alert and oriented X 3 - Psych Psych: Normal mood, Normal affect Results - Vitals Vitals: Vital Signs - 24 hr 07/12/23 20:47 Temperature 36.8 C Heart Rate 84 Respiratory 16 Rate Blood Pressure 150/90 H O2 Saturation 92 Oxygen O2 Source Room air - Labs Labs: Laboratory Tests 07/12/23 20:54 Urine Color RED/BLOODY Urine Clarity TURBID Urine pH 6.5 Ur Specific [place] 1.020 Urine Protein >=300 H Urine Glucose (UA) NEGATIVE Urine Ketones TRACE Urine Occult Blood LARGE H Urine Nitrite POSITIVE H Urine Bilirubin NEGATIVE Urine Urobilinogen 1 (NORMAL) Ur Leukocyte Esterase SMALL H Urine RBC TNTC H Urine WBC >25 H Ur Squamous Epith Cells NONE SEEN Urine Bacteria None Seen Ur Microscopic Review INDICATED Urine Culture Comments INDICATED PD Medical Decision Making - ED course Complexity details: reviewed results, re-evaluated patient, considered differential, d/w patient, d/w family ED course: 88-year-old male with hematuria, likely secondary to UTI. Started on Keflex. Will continue his current medications at home and have him follow-up with his doctor for further care. He is well-appearing, nontoxic. Afebrile. No evidence of pyelonephritis, sepsis, ureteral stone, or other emergency medical condition at this time. Patient counseled regarding signs and symptoms for which I believe and urgent re-evaluation would be necessary. Patient with good understanding of and agreement to plan and is comfortable going home at this time This document was made in part using voice recognition software. While efforts are made to proofread this document, sound alike and grammatical errors may occur. Departure - Departure Disposition: 01 Home, Self Care Clinical Impression: UTI (urinary tract infection) Qualifiers: Urinary tract infection type: acute cystitis Hematuria presence: with hematuria Qualified Code(s): N30.01 - Acute cystitis with hematuria Hematuria Qualifiers: Hematuria type: gross Qualified Code(s): R31.0 - Gross hematuria Condition: Good Instructions: ED UTI Cystitis Male, ED Hematuria Follow-Up: Kavon Redding MD [Primary Care Provider] - Within 1 week Prescriptions: cephALEXin [Keflex] 500 mg PO Q6H #28 cap Comments: Your urinalysis shows signs of infection today. Your prescriptions were sent to [facility] in [place]. Take all antibiotics until gone. A culture was sent and if an antibiotic change is needed, we will call you to change the antibiotics. If you are still having blood in the urine once the infection is cleared, you may need to see your urologist again.
[2023-07-12] MEDS: cephALEXin 250 MG CAPSULE PO STA (21:25)
== END 2023-07-12 21:51 | disposition home or self-care (01) ==
LOC: ED 20:44
DX: N30.01 Acute cystitis with hematuria (principal); I48.91 Unspecified atrial fibrillation; Z79.01 Long term (current) use of anticoagulants
CPT/HCPCS: 81001; 87086; 99283; A9270; 81003

== ENCOUNTER 2023-07-13 00:50 | Outpatient (CLI) | payer MEDICARE, OTHER | END 2023-07-13 00:51 | disposition EMS.NT | LOC: EMS 00:50 | DX: N48.89 Other specified disorders of penis (principal) ==

== ENCOUNTER 2023-07-13 01:29 | Emergency (ER) | payer MEDICARE, OTHER ==
[2023-07-13] MEDS ORDERED: CEPHALEXIN 250 MG Prepack 8 CAP BOTTLE PO STA (02:02)
--- NOTE | 2023-07-13 02:06 | ED Physician Documentation ---
PD HPI MALE - Stated complaint Stated Complaint: - Chief complaint Chief Complaint: Abd Pain - History obtained from History obtained from: Patient - Additional information Additional information: 88yM presents as bounceback after being seen a few hours previous for one day of hematuria, along with some dysuria. Patient had benign bladder resection about a month ago with 4 days of wiseman catheter with subsequent removal. He has had increased urgency since that time and now has dysuria and hematuria. he was given antibiotics for uti earlier, discharged, but returns now because he was continuously leaking bloody urine on his pants. denies dizziness, weakness, chest pain, shortness of breath, back pain or abdominal pain. PD PAST MEDICAL HISTORY - Past Medical History Past Medical History: Yes Cardiovascular: High cholesterol, Atrial fibrillation Endocrine/Autoimmune: HyPOthyroidism GI: GERD : None HEENT: None Musculoskeletal: Fibromyalgia Derm: None - Past Surgical History Past Surgical History: Yes General: Hiatal hernia repair Ortho: Hip replacement - Present Medications Home Medications: Ambulatory Orders Medication Instructions Recorded Confirmed Carvedilol 6.25 mg ORAL BID 05/21/16 07/12/23 Levothyroxine [Synthroid] 50 mcg ORAL DAILY 05/21/16 07/12/23 Apixaban [Eliquis] 5 mg PO BID 11/26/19 07/12/23 Finasteride [Proscar] 5 mg PO DAILY 07/12/23 07/12/23 cephALEXin [Keflex] 500 mg PO Q6H #28 cap 07/12/23 - Allergies Allergies/Adverse Reactions: Allergies Allergy/AdvReac Type Severity Reaction Status Date / Time hazelnut Allergy Unknown Verified 07/13/23 01:45 - Social History Does the pt smoke?: No Smoking Status: Never smoker Does the pt drink ETOH?: Yes Does the pt have substance abuse?: No - Immunizations Immunizations are current?: Yes - POLST Patient has POLST: No PD ED PE NORMAL - Vitals Vital signs reviewed: Yes - General General: Alert and oriented X 3, No acute distress, Well developed/nourished - HEENT HEENT: Atraumatic, PERRL, EOMI, Moist mucous membranes, Pharynx benign - Neck Neck: Supple, no meningeal sign - Cardiac Cardiac: Other (irregular rhythm, regular rate) - Respiratory Respiratory: No respiratory distress, Clear bilaterally - Abdomen Abdomen: Non tender, Non distended - Male Male : Other (normal external male genitalia. 3-5 cc bloody urine intermittently spurting from urethral meatus. thighs have reddish liquid on them. ) Results - Vitals Vitals: Vital Signs - 24 hr 07/13/23 01:36 Temperature 36.2 C L Heart Rate 96 Respiratory 18 Rate Blood Pressure 159/110 H O2 Saturation 99 Oxygen O2 Source Room air PD Medical Decision Making - ED course ED course: 88yM presents after just being diagnosed with UTI, c/o persistent hematuria and incontinence. Wiseman catheter placed and about 30 cc bright red urine came out within first 10 minutes. Patient denies symptoms concerning for anemia and he did just have bloodwork done with normal h and h. strict return precautions were discussed. plan to follow up outpatient urology. Departure - Departure Disposition: Home, Self Care Clinical Impression: Hematuria, UTI (urinary tract infection) Condition: Stable Instructions: ED UTI Cystitis Male, ED Hematuria Comments: You were seen in the emergency department for blood leaking from the penis and blood in the urine as well as bacteria in the urine. A wiseman was placed and we recommend you follow up with urology this week. We also recommend holding off on taking eliquis for 48 hours then resuming. Please return to the emergency department if you have any new or worsening symptoms or other concerns.
[2023-07-13] MEDS ORDERED: oxyCODONE/ACET 5/325 Prepack 4 PO STA (02:33)
[2023-07-13 03:45] VITALS: BP 160/104; O2SAT 100
== END 2023-07-13 02:50 | disposition home or self-care (01) ==
LOC: ED 01:29
DX: N39.0 Urinary tract infection, site not specified (principal); R31.9 Hematuria, unspecified; I48.91 Unspecified atrial fibrillation; E78.00 Pure hypercholesterolemia, unspecified; E03.9 Hypothyroidism, unspecified; Z79.899 Other long term (current) drug therapy; Z79.01 Long term (current) use of anticoagulants
CPT/HCPCS: 51702; 99284

== ENCOUNTER 2023-09-17 16:12 | Emergency (ER) | payer MEDICARE, OTHER ==
--- NOTE | 2023-09-17 17:37 | CT Report ---
PROCEDURE: Head WO INDICATIONS: GLF, on anticoagulants, confused and disoriented TECHNIQUE: Noncontrast 4.5 mm thick angled axial sections acquired from the foramen magnum to the vertex. For r adiation dose reduction, the following was used: automated exposure control, adjustment of mA and/or kV according to patient size. COMPARISON: 04/10/2023 FINDINGS: Image quality: Excellent. CSF spaces: Basal cisterns are patent. No extra-axial fluid collections. Ventricles are normal in size and shape. Brain: No midline shift. No intracranial masses or hemorrhage. Reece-white matter interface is norm al. Skull and face: There is a small focus of scalp hemorrhage seen within the right paravertebral regio n, as on series 2 image 10, which is new compared to the prior examination. Calvarium and visualized facial bones are intact, without suspicious lesions. Sinuses: Visualized sinuses and mastoids are clear. IMPRESSION: No intracranial hemorrhage is seen. No acute intracranial pathology. Small right periorbital scalp hematoma seen. Reviewed by: Clayton Causey MD on 09/17/2023 4:36 PM AKDT Approved by: Clayton Causey MD on 09/17/2023 4:36 PM AKDT Station ID: [id number]
[2023-09-17] MEDS: PROPARACAINE 0.5% OPHTH DROPS 15 ML EACHEYE STA (18:09)
--- NOTE | 2023-09-17 18:29 | ED Physician Documentation ---
PD HPI HEAD INJURY - Stated complaint Stated Complaint: FALL - Chief complaint Chief Complaint: Trauma Hd/Nk - Additional information Additional information: 88-year-old male presents emergency department with his after patient had a ground-level fall about a week ago. Patient's says that she is mostly concerned because his eyeball started to swell and she is concerned because he has been having some increased confusion. She went to [facility] [employer] [facility] yesterday with patient and he asked her repeatedly when they are working to go to [facility] [facility] when they had already gone. She has Worried about possible right eye injury as she has been noticing with the bruising at the right eye has been more swollen and wanted to have that evaluated as well. PD PAST MEDICAL HISTORY - Past Medical History Past Medical History: Yes Cardiovascular: High cholesterol, Atrial fibrillation Endocrine/Autoimmune: HyPOthyroidism GI: GERD : None HEENT: None Musculoskeletal: Fibromyalgia Derm: None - Past Surgical History Past Surgical History: Yes General: Hiatal hernia repair Ortho: Hip replacement - Present Medications Home Medications: Ambulatory Orders Medication Instructions Recorded Confirmed Carvedilol 6.25 mg ORAL BID 05/21/16 09/17/23 Levothyroxine [Synthroid] 50 mcg ORAL DAILY 05/21/16 09/17/23 Apixaban [Eliquis] 5 mg PO BID 11/26/19 09/17/23 Finasteride [Proscar] 5 mg PO DAILY 07/12/23 09/17/23 Ofloxacin 0.3% Ophth Drops 1 - 2 drops OPTH Q4H #5 ml 09/17/23 [Ocuflox 0.3% Ophth Drops] - Allergies Allergies/Adverse Reactions: Allergies Allergy/AdvReac Type Severity Reaction Status Date / Time hazelnut Allergy Unknown Verified 09/17/23 16:50 - Social History Does the pt smoke?: No Smoking Status: Never smoker Does the pt drink ETOH?: Yes Does the pt have substance abuse?: No - Immunizations Immunizations are current?: Yes - POLST Patient has POLST: No PD ED PE NORMAL - Vitals Vital signs reviewed: Yes - General General: Alert and oriented X 3, No acute distress, Well developed/nourished - HEENT HEENT: PERRL, EOMI, Moist mucous membranes, Pharynx benign, Other (old bruising surrounding right orbit. 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 Patient fell a week ago and he is on blood thinners so I completed a CT scan although outside of the 72-hour window given patient's was reporting some altered mental status went ahead with CT. CT did not reveal any acute abnormalities no hemorrhage or any other intracranial pathology. There is a small right periorbital scalp hematoma. Patient does have significant bruising to the right side of his face that is in the healing stages. There is no abrasions or lacerations that require any repair. Intraocular pressure was checked and it was 19 on the right eye he did have some purulent drainage to the lid of right eye so it had started him on some antibiotic drops sent this to his preferred pharmacy. Fluorescein stain was also completed on the right eye there is no fluorescein uptake concerning for any sort of corneal abrasion. Patient will follow up with primary care provider he was given ER return precautions all questions answered safe for discharge. Departure - Departure Disposition: 01 Home, Self Care Clinical Impression: Ground-level fall, Hematoma of right eye region Conjunctivitis Qualifiers: Conjunctivitis type: acute Acute conjunctivitis type: bacterial Laterality: right Qualified Code(s): H10.31 - Unspecified acute conjunctivitis, right eye Condition: Good Instructions: Trauma Head Prescriptions: Ofloxacin 0.3% Ophth Drops [Ocuflox 0.3% Ophth Drops] 1 - 2 drops OPTH Q4H #5 ml Comments: Thank you for trusting us with your care, we have evaluated you for right eye inflammation and confusion. We have Completed a head CT and do not see any intracranial hemorrhages or abnormalities. We have also checked your eye pressure of your right eye and it appears to be within normal limits. I am sending a prescription of eyedrops for that right eye as it does appear that there is a mild infection. 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 Please follow-up with your primary care provider as needed present back to the emergency department if you are noticing any worsening eye infection, worsening confusion, or any other concerning symptoms. Forms: PCP List Discharge Date/Time: 09/17/23 18:57
[2023-09-17 19:04] VITALS: BP 110/65; O2SAT 100
== END 2023-09-17 18:57 | disposition home or self-care (01) ==
LOC: ED 16:12
DX: S00.11XA Contusion of right eyelid and periocular area, initial encounter (principal); W18.39XA Other fall on same level, initial encounter; H10.31 Unspecified acute conjunctivitis, right eye; E78.00 Pure hypercholesterolemia, unspecified; I48.91 Unspecified atrial fibrillation; E03.9 Hypothyroidism, unspecified; M79.7 Fibromyalgia; Z79.01 Long term (current) use of anticoagulants; Z79.899 Other long term (current) drug therapy
CPT/HCPCS: 70450; 99283; 99284; J3490

== ENCOUNTER 2025-03-14 14:27 | Inpatient (IN) ==
--- NOTE | 2025-03-14 14:31 | ED Physician Documentation ---
PD HPI FOCAL NEURO Stated complaint Stated Complaint: CODE STROKE Chief complaint Chief Complaint: Neuro History obtained from History obtained from: EMS Additional information Additional information: 89-year-old gentleman on Eliquis for A-fib. He was in his usual state of health at 1:30 PM today when he became less responsive and developed right sided deficits and incontinence. He presents by ambulance with blood sugar of 111. Meds/Allgy Home Medications Ambulatory Orders Medication Instructions Recorded Confirmed carvedilol 25 mg tablet 6.25 mg ORAL BID 05/21/16 levothyroxine 25 mcg tablet 50 mcg ORAL DAILY 05/21/16 09/17/23 apixaban 5 mg tablet (Eliquis) 5 mg PO BID 11/26/19 finasteride 5 mg tablet 5 mg PO DAILY 07/12/2309/16 ofloxacin 0.3 % eye drops 1 - 2 drp OPTH Q4H #5 mL cefpodoxime 100 mg tablet 100 mg PO Q12H #14 tabs 02/24 03/18 Allergies Allergies Allergy/AdvReac Type Severity Reaction Status Date / Time hazelnut Allergy Unknown Verified 03/14/25 15:06 PFSH Active Problems All Active Problems (Updated 03/14/25 @ 15:24 by Johnny Abdul, ) Anticoagulated (Acute) Cerebrovascular accident (CVA) (Acute) Obstruction of indwelling urinary catheter (Acute) Injury of back (Acute) Injury of head and neck (Acute) Fracture of nasal bone (Acute) Closed fracture of cervical vertebra (Acute) Concussion (Acute) Lumbar compression fracture (Acute) Dehydration (Acute) Acute sinusitis (Acute) Social History Social History Do you vape?: No Living arrangement: At home Living Condition: With family Do you feel safe in your home environment?: Yes History of physical, verbal, emotional, or financial abuse?: No Frequency: Daily Are you sexually active?: No POLST Patient has POLST: No Exam Exam Vital Signs: Vital Signs x48h Temp Pulse Resp BP Pulse Ox 03/14/25 15:15 17 150/86 H 99 03/14/25 15:05 76 19 174/95 H 97 03/14/25 14:50 88 126 H 154/99 H 97 03/14/25 14:35 81 20 98 03/14/25 14:30 36.3 C L 80 18 154/99 H 100 Constitutional He is alert and oriented to person and place but not time or events. Respiratory breath sounds equal bilaterally and normal respiratory effort Cardiovascular Irregularly irregular Results Vitals Vitals: Vital Signs - 24 hr 03/14/25 14:30 03/14/25 14:35 03/14/25 14:50 Temperature 36.3 C L Temperature Source Temporal Artery Scan Pulse Rate 80 81 88 Respiratory Rate 18 20 126 H Blood Pressure 154/99 H 154/99 H O2 Saturation 100 98 97 O2 Source Room air Room air Room air Pain Intensity 0 0 0 03/14/25 15:05 03/14/25 15:15 Temperature Temperature Source Pulse Rate 76 Respiratory Rate 19 17 Blood Pressure 174/95 H 150/86 H O2 Saturation 97 99 O2 Source Room air Room air Pain Intensity 0 0 Oxygen O2 Source Room air EKG (time done) 1500: EKG releavant findings:: EKG personally interpreted by author of this note. Relevant findings are: Atrial fibrillation with nonspecific repolarization abnormality. Rate of 77. Labs Labs: Laboratory Tests 03/14/25 14:55 WBC 9.7 RBC 4.78 Hgb 14.4 Hct 44.6 MCV 93.3 MCH 30.1 MCHC 32.3 RDW 14.3 Plt Count 146 MPV 11.1 Neut # (Auto) 5.8 Lymph # (Auto) 2.6 Potter # (Auto) 1.1 H Eos # (Auto) 0.2 Baso # (Auto) 0.0 Absolute Nucleated RBC 0.00 Nucleated RBC % 0.0 PT 16.4 H INR 1.5 H Sodium 137 Potassium 4.5 Chloride 106 Carbon Dioxide 28 Anion Gap 3.0 L BUN 27 H Creatinine 1.1 Estimated GFR (MDRD) 63 L Glucose 94 Calcium 9.8 Total Bilirubin 0.6 AST 25 ALT 21 Alkaline Phosphatase 79 Total Protein 6.6 Albumin 3.6 Globulin 3.0 Albumin/Globulin Ratio 1.2 Lipase 57 Rads (name of study) Ct Head: Relevant Findings:: Final report received (Moderate atrophy and chronic ischemic change without intracranial hemorrhage or mass effect. ) and EMP independent interpretation of test (No ICH) CTA Head/neck: Relevant Findings:: Final report received and EMP independent interpretation of test Interpretation: No evidence of large vessel occlusion or aneurysm. 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 Proximal ICA atherosclerotic plaque without significant stenosis PD Medical Decision Making ED course ED course: 89-year-old gentleman presents with acute neurologic deficits concerning for a left MCA syndrome. He is not a TNK candidate as he is on Eliquis, although he cannot tell me if he has been compliant lately. He went directly after initial examination over for CT and CT angiography. On my independent review of his plain CT I do wonder if he has got a hyperdense left MCA sign? Discussed with telestroke neurologist at about 2:42 PM who will look at the CTs and then also look at the patient. Spoke again with Sedrick Monroe MD Telestroke neurology at 3:18 PM who confirms no interventional management is indicated and recommends admission to the hospital for poststroke care. Spoke with Dr. Johnny Abdul shortly after that for admission. Discharge Plan Discharge Patient Disposition: ED Place in Observation Condition: Serious Clinical Impression: Cerebrovascular accident (CVA) Qualifiers: CVA mechanism: unspecified Qualified Code(s): I63.9 - Cerebral infarction, unspecified Prescriptions: No Action carvedilol 25 MG tablet 6.25 mg ORAL BID levothyroxine 25 MCG tablet 50 mcg ORAL DAILY apixaban [Eliquis] 5 MG tablet 5 mg PO BID finasteride 5 MG tablet 5 mg PO DAILY ofloxacin 75 DROPS/5 ML drops 1 - 2 drp OPTH Q4H Qty: 5 0RF Rx Instructions: 1-2 drops to right eye every 2-4 hours for 2 days then every 2-3 hours for 5 days. cefpodoxime 100 MG tablet 100 mg PO Q12H Qty: 14 0RF Print Language: Macanese Stand Alone Forms: PCP List NIHSS Level of Consciousness Level of consciousness: (0) Alert, Keenly responsive LOC Questions: (1) Answers one Q correctly LOC Commands: (0) Performs both correctly Gaze Best Gaze: (0) Normal Visual Visual: (0) No loss Facial Palsy Facial Palsy: (1) Minor paralysis Motor Arms (both separate) Motor Arm (right): (1) Drift Motor Arm (left): (0) No drift Motor Legs (both separate) Motor Leg (right): (1) Drift Motor Leg (left): (0) No drift Limb Ataxia Limb Ataxia: (0) Absent Sensory Sensory: (0) Normal Best Language Best Language: (1) [id number] Dysarthria Dysarthria: (0) Normal Extinction and Inattention (formally neg Extinction and inattention: (0) No abnormality Total Score/Results Total Score/Result: 5
[2025-03-14 15:02] LABS: HCT - HEMATOCRIT 44.6 % (42.0-52.0); HGB - HEMOGLOBIN 14.4 g/dL (14.0-18.0); MEAN PLATELET VOLUME 11.1 fL (7.4-11.4); NRBC ABSOLUTE COUNT (AUTO) 0.00 x10^3/uL; NUCLEATED RED BLOOD CELLS AUTO 0.0 /100WBC; PLT - PLATELET COUNT 146 10^3/uL (130-450); RED CELL DISTRIBUTION WIDTH 14.3 % (12.0-15.0)
[2025-03-14 15:11] LABS: INR 1.5 (0.8-1.2); PT - PROTHROMBIN TIME 16.4 secs (9.9-12.6)
--- NOTE | 2025-03-14 15:12 | CT Report ---
PROCEDURE: CT Head W/O Stroke Protocol INDICATIONS: Neuro deficit, acute, stroke suspected TECHNIQUE: Helical axial CT of the brain was obtained without contrast and reformatted in multiple planes. COMPARISON: None. FINDINGS: CSF spaces: Ventricles are appropriate in size and position. No hydrocephalus. Basal cisterns unremarkable. Brain: No midline shift. No intracranial masses or hemorrhage. Reece-white matter interface is normal. Moderate atrophy and multifocal white matter chronic ischemic change noted. Atherosclerotic vascular calcification noted in the cavernous segments of both internal carotid arteries. Skull and face: Calvarium and skull base are unremarkable without suspicious lesion. Sinuses: Visualized sinuses and mastoids are clear. IMPRESSION: Moderate atrophy and chronic ischemic change without intracranial hemorrhage or mass effect. Reviewed by: Maxime Ornelas MD on 03/14/2025 2:09 PM JIE Approved by: Maxime Ornelas MD on 03/14/2025 2:09 PM JIE Station ID: [id number]
[2025-03-14 15:14] LABS: ALT ALANINE AMINOTRANSFERASE 21.0 IU/L (10-60); AST ASPARTATE AMINOTRANSFERASE 25.0 IU/L (10-42); BUN - BLOOD UREA NITROGEN 27.0 mg/dL (6-20); CARBON DIOXIDE - CO2 28.0 mmol/L (21-32); CREATININE 1.1 mg/dL (0.6-1.3); GFR - MDRD 63.0 (>89)
--- NOTE | 2025-03-14 15:15 | CT Report ---
PROCEDURE: CT Angio Head/Neck INDICATIONS: cva sx TECHNIQUE: Helical axial CT of the head and neck was obtained during the arterial phase of a intravenous contrast injection utilizing an angiographic protocol. Multiplanar traditional and MIP reformats were also obtained. COMPARISON: None. CONTRAST: FINDINGS: Cerebral CT Angiogram: Internal carotid arteries: No acute findings. Intracranial ICA are patent with no significant stenosis. No occlusion. No aneurysm. Cavernous segment atherosclerotic vascular calcification. Anterior cerebral arteries: Unremarkable. No significant stenosis. No occlusion. No aneurysm. Middle cerebral arteries: Unremarkable. No significant stenosis. No occlusion. No aneurysm. Posterior cerebral arteries: Right P1 NATIONAL RECRUITER high-grade stenosis without occlusion. Distal vessel unremarkable. Basilar artery: Unremarkable. No significant stenosis. No occlusion. No aneurysm. Vertebral arteries: Unremarkable as visualized. Dural venous sinuses: Unremarkable given phase of enhancement. Other: Arterial phase appearance of the brain parenchyma is unremarkable. Neck CT Angiogram: Internal carotid arteries: Bilateral sclerotic plaque in both proximal ICA without significant stenosis utilizing NASCET criteria Common carotid arteries: Unremarkable. No significant stenosis. No dissection or occlusion. External carotid arteries: Unremarkable. No occlusion. Vertebral arteries: Unremarkable. No significant stenosis. No dissection or occlusion. Aortic Arch and Mediastinum: Partially visualized aortic arch unremarkable without evidence of aneurysm. Origins of the great vessels unremarkable. Other: Large spinal dajuan and screw construct in the upper cervical spine with decompression limits several images. IMPRESSION: No evidence of large vessel occlusion or aneurysm. High-grade right P1 NATIONAL RECRUITER stenosis without occlusion. Proximal ICA atherosclerotic plaque without significant stenosis Note: Critical results were discussed with the patient's ER doc on 03/14/2025 at 2:08 PM AK time. Reviewed by: Maxime Ornelas MD on 03/14/2025 2:12 PM AKDT Approved by: Maxime Ornelas MD on 03/14/2025 2:12 PM AKDT Station ID: [id number]
--- OUTSIDE RECORDS SUMMARY | 2025-03-14 15:32 | EXTERNAL MEDICAL SUMMARY RPT | Continuity of Care Document ---
Author Organization [facility] Address [address] [place] [id number] Phone Problems date description facility 2025-03-09 09:28 Hypothyroidism, unspecified i [facility] 2025-03-09 09:28 Vitamin D deficiency, unspecifi ed [facility] 2025-03-09 09:28 [facility] 2025-03-09 09:28 Unspecified atrial fibrillation [facility] 2025-03-09 09:28 Other obstructive and reflux ur opathy [facility] 2025-03-09 09:28 Benign prostatic hyp erplasia with lower urinary tract symptoms [facility] Results/Labs test date facility value unit notes Result panel 1 NUCLEATED RED BLOOD CELLS AUTO 2025-03-14 14:55 [facility] 0.0 /100wbc (missing) BASOPHILS # (AUTO) 2025-03-14 14:55 [facility] 0.0 10 3/ul (missing) NRBC ABSOLUTE COUNT (AUTO) 2025-03-14 14:55 [facility] 0.00 x10 3/ul (missing) EOSINOPHILS # (AUTO) 2025-03-14 14:55 [facility] 0.2 10 3/ul (missing) BILIRUBIN,TOTAL 2025-03-14 14:55 [facility] 0.6 mg/dl As of December 2022 testing method has changed, this may include reference ranges. MONOCYTES # (AUTO) 2025-03-14 14:55 [facility] 1.1 10 3/ul (missing) CREATININE 2025-03-14 14:55 [facility] 1.1 mg/dl As of December 2022 testing method has changed, this may include reference ranges. ALBUMIN/GLOBULIN RATIO 2025-03-14 14:55 [facility] 1.2 (missing) (missing) INR 2025-03-14 14:55 [facility] 1.5 (missing) Oral Anticoagulant Indication INR range Venous Thrombosis, P.E. 2.0 - 3.0 Mechanical Valve 2.5 - 3.5 CHLORIDE 2025-03-14 14:55 [facility] 106 mmol/l As of December 2022 testing method has changed, this may include reference ranges. MEAN PLATELET VOLUME 2025-03-14 14:55 [facility] 11.1 fl (missing) SODIUM 2025-03-14 14:55 [facility] 137 mmol/l (missing) RED CELL DISTRIBUTION WIDTH 2025-03-14 14:55 [facility] 14.3 % (missing) HGB - HEMOGLOBIN 2025-03-14 14:55 [facility] 14.4 g/dl (missing) PLT - PLATELET COUNT 2025-03-14 14:55 [facility] 146 10 3/ul (missing) PT - PROTHROMBIN TIME 2025-03-14 14:55 [facility] 16.4 secs (missing) LYMPHOCYTES # (AUTO) 2025-03-14 14:55 [facility] 2.6 10 3/ul (missing) ALT ALANINE AMINOTRANSFERASE 2025-03-14 14:55 [facility] 21 iu/l As of December 2022 testing method has changed, this may include reference ranges. AST ASPARTATE AMINOTRANSFERASE 2025-03-14 14:55 [facility] 25 iu/l Slightly Hemolyzed: Results may be affected. As of December 2022 testing method has changed, this may include reference ranges. BUN - BLOOD UREA NITROGEN 2025-03-14 14:55 [facility] 27 mg/dl As of December 2022 testing method has changed, this may include reference ranges. CARBON DIOXIDE - CO2 2025-03-14 14:55 [facility] 28 mmol/l As of December 2022 testing method has changed, this may include reference ranges. ANION GAP 2025-03-14 14:55 [facility] 3.0 (missing) (missing) GLOBULIN 2025-03-14 14:55 [facility] 3.0 g/dl (missing) ALBUMIN 2025-03-14 14:55 [facility] 3.6 g/dl As of December 2022 testing method has changed, this may include reference ranges. MEAN CORPUSCULAR HEMOGLOBIN 2025-03-14 14:55 [facility] 30.1 pg (missing) MEAN CORPUSCULAR HGB CONC 2025-03-14 14:55 [facility] 32.3 g/dl (missing) POTASSIUM 2025-03-14 14:55 [facility] 4.5 mmol/l Slightly Hemolyzed: Results may be affected. As of December 2022 testing method has changed, this may include reference ranges. RED BLOOD COUNT 2025-03-14 14:55 [facility] 4.78 10 6/ul (missing) HCT - HEMATOCRIT 2025-03-14 14:55 [facility] 44.6 % (missing) NEUTROPHILS # (AUTO) 2025-03-14 14:55 [facility] 5.8 10 3/ul (missing) LIPASE 2025-03-14 14:55 [facility] 57 u/l As of December 2022 testing method has changed, this may include reference ranges. TOTAL PROTEIN 2025-03-14 14:55 [facility] 6.6 g/dl As of December 2022 testing method has changed, this may include reference ranges. GFR - MDRD 2025-03-14 14:55 [facility] 63 (missing) Social History date description facility
--- NOTE | 2025-03-14 15:34 | HISTORY & PHYSICAL EXAMINATION ---
Chief Complaint Chief Complaint Chief Complaint: Unilateral weakness History of Present Illness Admitted From Admitted From:: ED History Obtained From Records Reviewed: [facility] History obtained from: Patient, chart, family History of Present Illness HPI Comment/Other: Mario Alberto Stoddard is an 89-year-old male with a past medical history notable for atrial fibrillation on anticoagulation, history of UTI, and a prior cervical vertebral fracture who presented with right sided deficits following a CVA. History is taken from the patient's , the patient is still having word finding difficulties with relation to his stroke. Patient's shares that they were driving home from shopping today. They went to [facility] and the day again. The patient was able to walk around both stores. He then proceeded to drive them home. When they got home, he would not get out of the car and she says he was somewhat irritated as they were driving home. These were his only symptoms at the time. When she went to further investigate, he had dense right sided deficits and right facial droop. He had some word finding difficulties starting at that time. He was brought in the ED, and code stroke was called. Given the fact that he is anticoagulated, he is not a candidate for thrombolysis. No LVO was seen on CTA, and therefore no acute intervention is recommended at this time. He is admitted to the hospital for secondary prophylaxis and therapy evaluations. Meds/Allgy Home Medications Ambulatory Orders Medication Instructions Recorded Confirmed carvedilol 25 mg tablet 6.25 mg ORAL BID 05/21/16 levothyroxine 25 mcg tablet 50 mcg ORAL DAILY 05/21/16 09/17/23 apixaban 5 mg tablet (Eliquis) 5 mg PO BID 11/26/19 finasteride 5 mg tablet 5 mg PO DAILY 07/12/2309/16 ofloxacin 0.3 % eye drops 1 - 2 drp OPTH Q4H #5 mL cefpodoxime 100 mg tablet 100 mg PO Q12H #14 tabs 02/24 03/18 Allergies Allergies Allergy/AdvReac Type Severity Reaction Status Date / Time hazelnut Allergy Unknown Verified 03/14/25 15:06 PFSH Active Problems All Active Problems (Updated 03/14/25 @ 16:34 by Johnny Abdul DO) Atrial fibrillation (Chronic) Anticoagulated (Acute) Cerebrovascular accident (CVA) (Acute) Medical History Medical History (Updated 03/14/25 @ 16:34 by Johnny Abdul DO) TIA (transient ischemic attack) Lumbar compression fracture Obstruction of indwelling urinary catheter Closed fracture of cervical vertebra Injury of head and neck Fracture of nasal bone Concussion Social History Social History Smoking Status: Unknown if ever smoked Do you vape?: No Living arrangement: At home Living Condition: With family Do you feel safe in your home environment?: Yes History of physical, verbal, emotional, or financial abuse?: No Frequency: Daily Are you sexually active?: No POLST Patient has POLST: No Review of Systems Status of ROS: 10 or more systems reviewed and unremarkable except as noted in history and below Exam Exam Vital Signs: Vital Signs x48h Temp Pulse Resp BP Pulse Ox 03/14/25 16:00 70 18 156/78 H 98 03/14/25 15:45 18 174/100 H 98 03/14/25 15:30 88 19 156/96 H 98 03/14/25 15:15 17 150/86 H 99 03/14/25 15:05 76 19 174/95 H 97 03/14/25 14:50 88 126 H 154/99 H 97 03/14/25 14:35 81 20 98 03/14/25 14:30 36.3 C L 80 18 154/99 H 100 GEN: No acute distress, word finding difficulties HEENT: NC/AT, normal appearance of external ears and nose. Hearing baseline. Cardiac: Irregular irregular rhythm, rate controlled. No murmurs Pulm: Lungs CTA bilaterally, no cough, no wheezes Abdomen: Soft, nontender, nondistended. No rebound or guarding Skin: Senile purpura Neuro: Right facial droop, unable to puff out cheeks, word finding difficulty, Motor strength 4/5 on the right, 5 out of 5 on the left in both upper and lower extremities Right-sided ataxia in both leg and arm, though minimal Sensation grossly intact in upper lower extremities Unable to cooperate with rapid alternating movements, did not understand instruction. Unable to perform [id number] bilaterally. Gait exam deferred Psych: Frustrated understandably with his new deficits, otherwise euthymic mood Conclusion/Plan Problem List (1) Cerebrovascular accident (CVA): Plan: Time of onset approximately 1330 on 9/20. He was seen in the ED within an hour of the onset of his symptoms. No acute intervention with tPA as he was on anticoagulation prior to his event. No LVO to prompt thrombectomy. Symptoms consistent with a left-sided MCA territory stroke. Pending MRI. Symptoms mainly ataxia in the right upper and lower extremity. He has word finding difficulty and anomia. Notably he does not have clear difficulties with motor speech though he has some right facial droop. I suspect he will need further rehabilitation, may be appropriate for IPR. Was seen by teleneurology who recommended admission for MRI, therapy evaluation, and initiation of secondary prophylaxis. I reviewed the telestroke provider's notes. * NPO until patient passes swallow study * Speech evaluation * PT evaluation * MRI brain without contrast * OR aspirin until he is swallowing, then can transition to oral * Start statin as soon as patient is swallowing * Permissive hypertension for at least 48 hours, IV labetalol for SBP greater than 220 * Hold off on resuming Eliquis until after MRI, at least 2 days * Q4H neuro checks Qualifiers: CVA mechanism: unspecified Qualified Code(s): I63.9 - Cerebral infarction, unspecified (2) Atrial fibrillation: Plan: Patient is in atrial fibrillation on my exam. He is rate controlled. History of longstanding atrial fibrillation. Initial records seem to suggest she is on carvedilol and Eliquis. * Anticoagulation as above * Holding vasoactive medications as above, will resume carvedilol once out of permissive hypertension * As needed metoprolol tartrate if he becomes uncontrolled with regard to rate Qualifiers: Atrial fibrillation type: unspecified Qualified Code(s): I48.91 - Unspecified atrial fibrillation Lab Results Lab results reviewed: Yes 03/14/25 14:55 03/14/25 14:55 Diagnostic Imaging Results Diagnostic Imaging Results: positive Final report reviewed EKG Results EKG Interpreted Independently: Yes EKG Comparison: Unchanged from prior EKG Core Measures Anticipated LOS I expect patient to be DC'd or transferred within 96 hours.: Yes DVT/VTE - Prophylaxis VTE/DVT Device ordered at admit?: Yes VTE/DVT Prophylaxis med ordered at admit?: No Not Ordered - Medical Reason: Contraindicated Stroke - Rehab Assessment Rehab services assessment to be ordered?: Yes
[2025-03-14] MEDS ORDERED: LABETALOL 20 MG/4 ML SYRINGE IVP PRN (16:24)
[2025-03-14] MEDS ORDERED: ONDANSETRON 4 MG/2 ML VIAL IVP PRN (16:24)
[2025-03-14] MEDS ORDERED: ONDANSETRON ODT 4 MG TABLET TL PRN (16:24)
[2025-03-14] MEDS ORDERED: ACETAMINOPHEN 650 MG SUPP PR PRN (16:24)
[2025-03-14] MEDS ORDERED: METOPROLOL 5 MG/5 ML VIAL IVP PRN (16:53)
--- NOTE | 2025-03-14 16:57 | ADVANCE CARE PLANNING NOTE ---
Advance Care Planning Planning Encounter Date: 03/14/25 Time: 16:54 Diagnosis for Encounter (1) Cerebrovascular accident (CVA): Qualifiers: CVA mechanism: unspecified Qualified Code(s): I63.9 - Cerebral infarction, unspecified (2) Atrial fibrillation: Qualifiers: Atrial fibrillation type: unspecified Qualified Code(s): I48.91 - Unspecified atrial fibrillation Encounter Additional Discussion: Discussed with patient and his at bedside. Given the patient's recent stroke, he has word finding difficulty and is having trouble interpreting everything him saying. The patient's does understand everything that is being said. She relates that he was asked similar question after he had a cervical spinal fracture several years back. At that point in time he actually had an arrest per her recollection and they were able to resuscitate him. I asked several times about clarification about this and she reaffirmed that he had CPR done. I did describe the risks of CPR given his advanced age and now that he has had a stroke. I do worry about the chance of a meaningful recovery following cardiac arrest given his comorbidities. Fully informed, the patient's would like the patient to be full code. I encouraged them to have ongoing conversations about this as his recovery progresses. I have encouraged him to work on their advance directives. The says that these are "difficult topics" but she will try Code Status: Attempt Resuscitation Time spent on advance care plannin
[2025-03-14] MEDS: DEXTROSE 5%-0.45% NACL 1,000 ML IV SCH (17:35)
[2025-03-14] MEDS: SODIUM CHLORIDE FLUSH 0.9% 10 ML SYRINGE IVP SCH (17:52)
--- NOTE | 2025-03-14 18:37 | MRI Report ---
PROCEDURE: MRI Brain WO INDICATIONS: Stroke TECHNIQUE: Multiplanar multisequential MR images of the brain were obtained without contrast COMPARISON: MRI brain 05/24/2022 FINDINGS: CSF Spaces: Basal cisterns are patent. No extra-axial fluid collections. Ventricles are normal in size and shape. Brain: No intracranial masses or hemorrhage. Reece/white matter interface is normal. Brainstem appears normal. Diffusion-weighted images shows no evidence of acute infarct. Normal intravascular flow voids are present. Moderate atrophy and white matter chronic ischemic change Skull and face: Calvarium has normal marrow signal. Orbits appear normal. Sinuses: Sinuses and mastoids are clear. IMPRESSION: Moderate atrophy and chronic ischemic change without acute infarct, hemorrhage or mass lesion. Reviewed by: Maxime Ornelas MD on 03/14/2025 5:34 PM JIE Approved by: Maxime Ornelas MD on 03/14/2025 5:34 PM JIE Station ID: [id number]
[2025-03-14 20:45] LABS: GLUCOSE, URINE (UA) NEGATIVE (NEGATIVE); KETONES,URINE (UA) NEGATIVE (NEGATIVE); OCCULT BLOOD,URINE TRACE-INTACT (NEGATIVE)
[2025-03-14 20:53] LABS: SQUAMOUS EPITHELIAL CELL,UR NONE SEEN (<= Few); WBC CLUMPS,URINE PRESENT
[2025-03-14] MEDS ORDERED: ATORVASTATIN 40 MG TABLET PO SCH (21:00)
[2025-03-15 06:05] LABS: HCT - HEMATOCRIT 44.2 % (42.0-52.0); HGB - HEMOGLOBIN 14.8 g/dL (14.0-18.0); MEAN PLATELET VOLUME 10.9 fL (7.4-11.4); NRBC ABSOLUTE COUNT (AUTO) 0.00 x10^3/uL; NUCLEATED RED BLOOD CELLS AUTO 0.0 /100WBC; PLT - PLATELET COUNT 157 10^3/uL (130-450); RED CELL DISTRIBUTION WIDTH 14.3 % (12.0-15.0)
--- NOTE | 2025-03-15 08:07 | PROVIDER PROGRESS NOTE ---
Subjective Prog Note Date Prog Note Date: 03/15/25 Prog Note Time: 08:03 Subjective Pt reports feeling: Improved Subjective: MRI was completed yesterday which did not demonstrate an acute infarct. We did broaden her search for other causes of acute encephalopathy, and was found to have frankly positive UA with nitrites. Despite his expressive aphasia, he is able to answer yes/no questions. Denies fever, chills, chest pain, dyspnea, abdominal pain, or diarrhea. He does endorse urinary frequency and pain with urination. He was having urinary frequency initially on arrival. Patient is actually doing quite well this morning. He has effectively 5/5 strength in bilateral upper and lower extremities. He has a persistent expressive aphasia as of this afternoon. Much better than yesterday, but not fully resolved at 24 hours. To work with PT today. He passed a bedside swallow with his progression overnight. He has been started back on regular diet. Overall diagnosis is most consistent with MRI negative stroke. Given the small size of his stroke in that case, likely resume DOAC at 48 hours Current Medications Current Medications Current Medications: Current Medications Generic Name Dose Route Start Last Admin Trade Name Freq PRN Reason Stop Dose Admin Acetaminophen 650 mg 03/14/25 16:24 Acetaminophen 650 Mg Supp NE Q6HR PRN FEVER > 100.5 F Aspirin 300 mg 03/15/25 09:00 Aspirin 300 Mg Supp NE DAILY DIVINA Dextrose/Sodium Chloride 1,000 mls @ 75 mls/hr 03/14/25 16:24 03/15/25 07:53 D5.45ns IV 75 mls/hr .[id number] DIVINA Administration Ceftriaxone Sodium 1 gm/ 100 mls @ 200 mls/hr 03/15/25 09:00 Sodium Chloride IV 03/17/25 09:29 DAILY DIVINA Labetalol HCl 10 mg 03/14/25 16:24 Labetalol 20 Mg/4 Ml Syringe IVP Q10M PRN SBP >220 OR DBP>120 Metoprolol Tartrate 5 mg 03/14/25 16:53 Metoprolol 5 Mg/5 Ml Vial IVP Q6H PRN Sustained HR>120, notify Ondansetron HCl 4 mg 03/14/25 16:24 Ondansetron 4 Mg/2 Ml Vial IVP Q6HR PRN Nausea / Vomiting Sodium Chloride 10 ml 03/14/25 17:00 03/15/25 02:22 Sodium Chloride Flush 0.9% 10 Ml Syringe IVP 10 ml 0100,0900,1700 DIVINA Administration Sodium Chloride 10 ml 03/14/25 16:24 Sodium Chloride Flush 0.9% 10 Ml Syringe IVP PRN PRN NEEDED PER PROVIDER ORDERS Objective Vital Signs/Intake & Output Reviewed Vital Signs: Yes Vital Signs: Vital Signs x48h Temp Pulse Resp BP Pulse Ox 03/15/25 07:52 36.6 C 92 16 161/99 H 98 03/15/25 05:36 36.8 C 86 16 171/98 H 95 03/15/25 00:11 36.7 C 85 16 174/101 H 98 Intake & Output: Intake & Output 03/12/25 03/13/25 03/14/25 03/15/25 23:59 23:59 23:59 23:59 Intake Total 1000 / 1000 Output Total 1100 / 1100 300 / 300 Balance -1100 / -1100 700 / 700 Weight (kg) 76.5 kg Objective Comments/Other: GEN: No acute distress, Persistent expressive aphasia, improving HEENT: NC/AT, normal appearance of external ears and nose. Hearing baseline. Cardiac: Irregular irregular rhythm, rate controlled. No murmurs Pulm: Lungs CTA bilaterally, no cough, no wheezes Abdomen: Soft, nontender, nondistended. No rebound or guarding Skin: Senile purpura Neuro: Face symmetric. Cranial nerves II through XII intact. EOMI. PERRLA. Expressive aphasia. Motor strength 5/5 in the bilateral upper and lower extremities Right-sided ataxia in both leg and arm, though minimal Sensation grossly intact in upper lower extremities Negative for dysdiadochokinesia. Gait exam deferred Psych: Mood euthymic with congruent affect. Pleasant. Lab Results 03/15/25 05:42 03/14/25 14:55 Other Labs: Lab Results x24hrs 03/15/25 03/14/25 03/14/25 Range/Units 05:42 20:30 14:55 WBC 11.6 H 9.7 (4.8-10.8) x10^3/uL RBC 4.82 4.78 (4.70-6.10) 10^6/uL Hgb 14.8 14.4 (14.0-18.0) g/dL Hct 44.2 44.6 (42.0-52.0) % MCV 91.7 93.3 (80.0-94.0) fL MCH 30.7 30.1 (27.0-31.0) pg MCHC 33.5 32.3 (32.0-36.0) g/dL RDW 14.3 14.3 (12.0-15.0) % Plt Count 157 146 (130-450) 10^3/uL MPV 10.9 11.1 (7.4-11.4) fL Neut # (Auto) 7.5 H 5.8 (1.5-6.6) 10^3/uL Lymph # (Auto) 2.7 2.6 (1.5-3.5) 10^3/uL Cocke # (Auto) 1.2 H 1.1 H (0.0-1.0) 10^3/uL Eos # (Auto) 0.1 0.2 (0.0-0.7) 10^3/uL Baso # (Auto) 0.1 0.0 (0.0-0.1) 10^3/uL Absolute Nucleated RBC 0.00 0.00 x10^3/uL Nucleated RBC % 0.0 0.0 /100WBC PT 16.4 H (9.9-12.6) secs INR 1.5 H (0.8-1.2) Sodium 137 (135-145) mmol/L Potassium 4.5 (3.5-4.5) mmol/L Chloride 106 (101-111) mmol/L Carbon Dioxide 28 (21-32) mmol/L Anion Gap 3.0 L (6-13) BUN 27 H (6-20) mg/dL Creatinine 1.1 (0.6-1.3) mg/dL Estimated GFR (MDRD) 63 L (>89) Glucose 94 (74-104) mg/dL Calcium 9.8 (8.5-10.3) mg/dL Total Bilirubin 0.6 (0.2-1.0) mg/dL AST 25 (10-42) IU/L ALT 21 (10-60) IU/L Alkaline Phosphatase 79 (42-121) IU/L Total Protein 6.6 (6.4-8.9) g/dL Albumin 3.6 (3.2-5.5) g/dL Globulin 3.0 (2.1-4.2) g/dL Albumin/Globulin Ratio 1.2 (1.0-2.2) Lipase 57 (11-82) U/L Urine Color YELLOW Urine Clarity CLEAR (CLEAR) Urine pH 7.5 (5.0-7.5) PH Ur Specific [place] 1.010 (1.002-1.030) Urine Protein NEGATIVE (NEGATIVE) mg/dL Urine Glucose (UA) NEGATIVE (NEGATIVE) mg/dL Urine Ketones NEGATIVE (NEGATIVE) mg/dL Urine Occult Blood TRACE-INTACT (NEGATIVE) Urine Nitrite POSITIVE H (NEGATIVE) Urine Bilirubin NEGATIVE (NEGATIVE) Urine Urobilinogen 0.2 (NORMAL) (NORMAL) E.U./dL Ur Leukocyte Esterase MODERATE H (NEGATIVE) Urine RBC 0-5 (0-5) /HPF Urine WBC >25 H (0-3) /HPF Urine WBC Clumps PRESENT Ur Squamous Epith Cells NONE SEEN (<= Few) Urine Bacteria Few (None Seen) /HPF Urine Culture Comments INDICATED Diagnostic Imaging Diagnostic Imaging Results: positive Final report reviewed and Read independently Assessment/Plan Problem List (1) Cerebrovascular accident (CVA): Impression: Dramatically improved. Recall that the patient had abrupt onset right-sided weakness and expressive aphasia that started at approximately 1330 on 03/14. He was seen in the ED within an hour of his symptom onset, however was not a candidate for acute intervention given that he is on a DOAC. MRI was completed on 03/14 in the evening. It does not show a clear infarct. Given that his symptoms did not resolve after 24 hours, this is likely an MRI negative stroke. He is improving slowly. His presentation and symptom distribution is all consistent with a small left lacunar infarct that was likely missed on the MRI conducted here. Initially suspicious for MCA territory. Presenting symptoms mostly ataxia in the right upper and lower extremity, expressive aphasia and anomia. No motor or speech issues. Right facial droop. * Pass bedside swallow, diet advanced to general * To be valued by speech * PT to evaluate later today * Switch to oral aspirin and statin * Given small infarct, restart Eliquis at 48 hours * Permissive hypertension for 48 hours, IV labetalol for SBP greater than 220. * Will need outpatient neurology follow-up Qualifiers: CVA mechanism: unspecified Qualified Code(s): I63.9 - Cerebral infarction, unspecified (2) Atrial fibrillation: Impression: Stable. Patient is still in atrial fibrillation, but rate controlled. Recall history of longstanding atrial fibrillation. He is on carvedilol and Eliquis * Anticoagulation as above * Holding vasoactive medications as above, will resume carvedilol once out of permissive hypertension * As needed metoprolol tartrate if he becomes uncontrolled with regard to rate Dispo: Suspect he will be medically stable for discharge as of 03/16. Pending PT evaluation, likely to go home. Qualifiers: Atrial fibrillation type: unspecified Qualified Code(s): I48.91 - Unspecified atrial fibrillation
[2025-03-15] MEDS ORDERED: cefTRIAXone 1 GM in SODIUM CHLORIDE 0.9% MINIBAG 100 ML IV SCH (09:00)
[2025-03-15] MEDS: ASPIRIN 300 MG SUPP PR SCH (09:04)
[2025-03-15] MEDS: cefTRIAXone 1 GM VIAL IVP SCH (09:04)
--- NOTE | 2025-03-15 14:04 | PHARMACY PROGRESS NOTE ---
Best Possible Medication History Admit Date and Time: 03/15/25 1311 Home Medications Medication Instructions Recorded Confirmed Type apixaban 5 mg tablet (Eliquis) 5 mg PO BID 11/26/19 History carvedilol 6.25 mg tablet 3.125 mg PO BID 03/15/25 History levothyroxine 50 mcg tablet 50 mcg PO DAILY 03/15/25 0 03/15/25 History Processed by: Pharmacy Medications reviewed in ED?: No Medication History completed: Yes Patient Interview: Pt unable to participate (Patient stated his name and birthday. Patient's did all of the talking after that.) Secondary Source(s): Insurance records [facility] Statement: As the person ultimately responsible for medication therapy, providers are able to order a medication from an existing home medication list in [facility] via the "Reconcile Routine" prior to Confirmation of that medication by customer support technician. Such practice is discouraged except when the physician, in their clinical judgment, deems that a medical need exists for a medication without regard to previous use.
--- NOTE | 2025-03-15 16:24 | PT Plan of Care ---
PT Inpatient Plan of Care DIAGNOSIS Diagnosis: CVA with negative MRI; a-fib Referring Provider: Johnny Abdul Patient Status: Inpatient CHIEF COMPLAINT Chief Complaint: R sided weakness and expressive aphasia Onset of Chief Complaint: [employer] on 03/14/25 MEDICAL/SURGICAL HISTORY Medical History (Updated 03/14/25 @ 16:34 by Johnny Abdul, DO) TIA (transient ischemic attack) Lumbar compression fracture Obstruction of indwelling urinary catheter Closed fracture of cervical vertebra Injury of head and neck Fracture of nasal bone Concussion BALANCE/FUNCTIONAL RESULTS Sitting Balance: Good Standing Balance: Fair Sinclair Balance Evaluation Total Score: 29 Sinclair Balance Test Interpretation: Medium Fall Risk ASSESSMENT Assessment: The pt is an 89 y/o M who arrived to the ED on 03/14/25 due to word finding issues and R sided weakness, he was hospitalized with a CVA with negative MRI. Please see chart for complete medical hx. The pt was received resting comfortably supine in bed and presented today with verbal expressive deficits, impulsivity, gross R sided inattention, mildly decreased R sided MMT compared to L, impaired coordination of R UE and LE, and impaired R UE proprioception. All of these limited his safety and tolerance during functional mobility. At this time recommend continued skilled PT intervention while in the acute setting and DC to IPR for further rehab once pt medically stable as the pt's baseline mobility was high level and his motivation/tolerance with the required participation is high. This plan was discussed with the pt and he was in agreement with this. At the end of the session the pt was sitting up in a chair with call light in reach, chair alarm in place and on, and all needs met while RN and MANAGER REQUIREMENTS were in the room. RN and MD updated on pt's status and DC rec. PATIENT/FAMILY GOALS Patient/Family Goals: patient unable to clearly verbalize a goal due to deficits related to verbal expression GOALS Improve supine to sit to:: Modified Independent Improve sit to stand to:: Standby Assist Improve pivot transfer ability to:: Standby Assist Improve sit to supine to:: Modified Independent Improve gait ability to:: CGA Advance Assistive Device to:: Front Wheeled Walker Increase distance walked to (in feet):: 50 Improve Sitting Balance to:: Good PLAN Frequency: 1-2x/day Duration: Until discharge DISCHARGE RECOMMENDATIONS Discharge Location: IPR Support/Services Needed: With assist Other Discharge Equipment: TBD Transport Needs at Discharge: Wheelchair van
[2025-03-15] MEDS: ACETAMINOPHEN 325 MG TABLET PO PRN (18:08)
--- NOTE | 2025-03-15 19:59 | CT Report ---
PROCEDURE: CT Head WO INDICATIONS: Post stroke, worsening aphasia TECHNIQUE: CT of the head was performed, without intravenous contrast. Reformats: Coronal and sagittal. For radiation dose reduction, the following was used: automated exposure control, adjustment of mA and/or kV according to patient size. COMPARISON: CT and MR 03/14/2025 FINDINGS: Image quality: Diagnostic. CSF spaces: Basal cisterns are patent. No extra-axial fluid collections. Ventricles are symmetric in size and shape. Brain: No midline shift. No intracranial masses or hemorrhage. Hypodensities in the subcortical and periventricular white matter are most commonly seen in setting of chronic microvascular ischemic changes. Age-related cerebral and cerebellar volume loss is seen. Intracranial vascular calcifications are noted in the internal carotid arteries. Skull and face: Calvarium and visualized facial bones are intact, without suspicious lesions. Sinuses: Visualized sinuses and mastoids are clear. IMPRESSION: 1. No acute intracranial pathology. 2. Moderate chronic microvascular ischemic changes and generalized parenchymal volume loss. Reviewed by: Cameron Romeo MD on 03/15/2025 7:56 PM PDT Approved by: Cameron Romeo MD on 03/15/2025 7:56 PM PDT Station ID: [id number]
[2025-03-15] MEDS: ATORVASTATIN 40 MG TABLET PO SCH (22:27)
[2025-03-16] MEDS ORDERED: HALOPERIDOL 5 MG/ML VIAL ONE (01:28)
[2025-03-16] MEDS: HALOPERIDOL 5 MG/ML VIAL IVP ONE (01:30)
[2025-03-16] MEDS: ASPIRIN EC 81 MG TABLET PO SCH (10:04)
--- NOTE | 2025-03-16 10:25 | PROVIDER PROGRESS NOTE ---
Subjective Prog Note Date Prog Note Date: 03/16/25 Prog Note Time: 10:24 Subjective Pt reports feeling: No change Subjective: Patient increased garbled speech last night, with worsening of his expressive aphasia a repeat head CT was conducted, that was unremarkable. He was agitated overnight, he did get a dose of haloperidol from the supervisor phosphorus processing. He was resting comfortably this morning. Seen by PT on 03/15, recommending IPR. Seen by OT and FUR NAILER today who are recommending the same. Patient feeling remorseful about his agitation overnight. His is also very apologetic. He apparently has a history of sundowning when he is in the hospital. He has improvement in his speech today. He is much more comprehensible. He continues to have some right hemineglect, but his able to correct himself and reach out with his right hand when he reaches to shake my hand. Still has expressive aphasia, but improving. Current Medications Current Medications Current Medications: Current Medications Generic Name Dose Route Start Last Admin Trade Name Freq PRN Reason Stop Dose Admin Acetaminophen 650 mg 03/15/25 17:48 03/15/25 18:08 Acetaminophen 325 Mg Tablet PO 650 mg Q4HR PRN Administration Pain or Fever > 38C (100.4F) Atorvastatin Calcium 40 mg 03/15/25 21:00 03/15/25 22:27 Atorvastatin 40 Mg Tablet PO 40 mg QPM DIVINA Administration Ceftriaxone Sodium 1 gm 03/15/25 09:00 03/16/25 10:05 Ceftriaxone 1 Gm Vial IVP 03/17/25 09:01 1 gm DAILY DIVINA Administration Labetalol HCl 10 mg 03/14/25 16:24 Labetalol 20 Mg/4 Ml Syringe IVP Q10M PRN SBP >220 OR DBP>120 Metoprolol Tartrate 5 mg 03/14/25 16:53 Metoprolol 5 Mg/5 Ml Vial IVP Q6H PRN Sustained HR>120, notify Ondansetron HCl 4 mg 03/14/25 16:24 Ondansetron 4 Mg/2 Ml Vial IVP Q6HR PRN Nausea / Vomiting Sodium Chloride 10 ml 03/14/25 17:00 03/16/25 10:05 Sodium Chloride Flush 0.9% 10 Ml Syringe IVP 10 ml 0100,0900,1700 DIVINA Administration Sodium Chloride 10 ml 03/14/25 16:24 Sodium Chloride Flush 0.9% 10 Ml Syringe IVP PRN PRN NEEDED PER PROVIDER ORDERS Sterile Water 10 ml 03/15/25 09:00 03/16/25 10:05 Water For Injection,Sterile 10 Ml Vial MC 03/17/25 09:01 10 ml DAILY DIVINA Administration Objective Vital Signs/Intake & Output Reviewed Vital Signs: Yes Vital Signs: Vital Signs x48h Temp Pulse Resp BP BP Pulse Ox 03/16/25 09:25 36.7 C 93 24 156/97 H 96 03/16/25 04:49 37.0 C 91 22 175/103 H 96 Intake & Output: Intake & Output 03/13/25 03/14/25 03/15/25 03/16/25 23:59 23:59 23:59 23:59 Intake Total 1584 / 1584 240 / 240 Output Total 1100 / 1100 1170 / 1170 250 / 250 Balance -1100 / -1100 414 / 414 -10 / -10 Weight (kg) 76.5 kg Objective Comments/Other: GEN: No acute distress, Persistent expressive aphasia, improving HEENT: NC/AT, normal appearance of external ears and nose. Hearing baseline. Cardiac: Irregular irregular rhythm, rate controlled. No murmurs Pulm: Lungs CTA bilaterally, no cough, no wheezes Abdomen: Soft, nontender, nondistended. No rebound or guarding Skin: Senile purpura Neuro: Face symmetric. Cranial nerves II through XII intact. EOMI. PERRLA. Expressive aphasia. Right hemineglect in the upper and lower extremity Motor strength 5/5 in the bilateral upper and lower extremities Right-sided ataxia in both leg and arm, though minimal Sensation grossly intact in upper lower extremities Negative for dysdiadochokinesia, Though difficult to participate in the right. Gait exam deferred Psych: Mood euthymic with congruent affect. Pleasant. Lab Results 03/15/25 05:42 03/14/25 14:55 Other Labs: Lab Results x24hrs 03/15/25 03/14/25 03/14/25 Range/Units 05:42 20:30 14:55 WBC 11.6 H 9.7 (4.8-10.8) x10^3/uL RBC 4.82 4.78 (4.70-6.10) 10^6/uL Hgb 14.8 14.4 (14.0-18.0) g/dL Hct 44.2 44.6 (42.0-52.0) % MCV 91.7 93.3 (80.0-94.0) fL MCH 30.7 30.1 (27.0-31.0) pg MCHC 33.5 32.3 (32.0-36.0) g/dL RDW 14.3 14.3 (12.0-15.0) % Plt Count 157 146 (130-450) 10^3/uL MPV 10.9 11.1 (7.4-11.4) fL Neut # (Auto) 7.5 H 5.8 (1.5-6.6) 10^3/uL Lymph # (Auto) 2.7 2.6 (1.5-3.5) 10^3/uL [place] # (Auto) 1.2 H 1.1 H (0.0-1.0) 10^3/uL Eos # (Auto) 0.1 0.2 (0.0-0.7) 10^3/uL Baso # (Auto) 0.1 0.0 (0.0-0.1) 10^3/uL Absolute Nucleated RBC 0.00 0.00 x10^3/uL Nucleated RBC % 0.0 0.0 /100WBC PT 16.4 H (9.9-12.6) secs INR 1.5 H (0.8-1.2) Sodium 137 (135-145) mmol/L Potassium 4.5 (3.5-4.5) mmol/L Chloride 106 (101-111) mmol/L Carbon Dioxide 28 (21-32) mmol/L Anion Gap 3.0 L (6-13) BUN 27 H (6-20) mg/dL Creatinine 1.1 (0.6-1.3) mg/dL Estimated GFR (MDRD) 63 L (>89) Glucose 94 (74-104) mg/dL Calcium 9.8 (8.5-10.3) mg/dL Total Bilirubin 0.6 (0.2-1.0) mg/dL AST 25 (10-42) IU/L ALT 21 (10-60) IU/L Alkaline Phosphatase 79 (42-121) IU/L Total Protein 6.6 (6.4-8.9) g/dL Albumin 3.6 (3.2-5.5) g/dL Globulin 3.0 (2.1-4.2) g/dL Albumin/Globulin Ratio 1.2 (1.0-2.2) Lipase 57 (11-82) U/L Urine Color YELLOW Urine Clarity CLEAR (CLEAR) Urine pH 7.5 (5.0-7.5) PH Ur Specific [place] 1.010 (1.002-1.030) Urine Protein NEGATIVE (NEGATIVE) mg/dL Urine Glucose (UA) NEGATIVE (NEGATIVE) mg/dL Urine Ketones NEGATIVE (NEGATIVE) mg/dL Urine Occult Blood TRACE-INTACT (NEGATIVE) Urine Nitrite POSITIVE H (NEGATIVE) Urine Bilirubin NEGATIVE (NEGATIVE) Urine Urobilinogen 0.2 (NORMAL) (NORMAL) E.U./dL Ur Leukocyte Esterase MODERATE H (NEGATIVE) Urine RBC 0-5 (0-5) /HPF Urine WBC >25 H (0-3) /HPF Urine WBC Clumps PRESENT Ur Squamous Epith Cells NONE SEEN (<= Few) Urine Bacteria Few (None Seen) /HPF Urine Culture Comments INDICATED Diagnostic Imaging Diagnostic Imaging Results: positive Final report reviewed and Read independently Assessment/Plan Problem List (1) Cerebrovascular accident (CVA): Impression: Continues to remain improved. He has right hemineglect, but no meera weakness. He has some word finding difficulty, but has intact receptive speech. No dysarthria. Recall that the patient had abrupt onset right-sided weakness and expressive aphasia that started at approximately 1330 on 03/14. He was seen in the ED within an hour of his symptom onset, however was not a candidate for acute intervention given that he is on a DOAC. MRI was completed on 03/14 in the evening. It does not show a clear infarct. Given that his symptoms did not resolve after 24 hours, this is likely an MRI negative stroke. He is improving slowly. His presentation and symptom distribution is all consistent with a small left lacunar infarct that was likely missed on the MRI conducted here. Initially suspicious for MCA territory. Presenting symptoms mostly ataxia in the right upper and lower extremity, expressive aphasia and anomia. No motor or speech issues. Right facial droop.Many of this is resolved. He passes bedside swallow on hospital day 1 and has a diet He notably had recrudescence of his symptoms on the evening of hospital day 1, with profound garbled speech and agitation. Given no acute change he had a CT head which was unchanged. * Has been seen by speech, PT, OT * Recommendation for inpatient rehab, case management aware * On Eliquis and statin * Starting Eliquis again today after 48 hours given small volume stroke * Discontinue permissive hypertension given small volume stroke after 48 hours * Resuming home carvedilol, 3.25 mg twice daily * Will need outpatient neurology follow-up Qualifiers: CVA mechanism: unspecified Qualified Code(s): I63.9 - Cerebral infarction, unspecified (2) Altered mental state: Impression: Resolved Patient had hospital induced delirium on the evening of hospital day 1. He had agitation, possibly related to needing to void and not understanding that he was wearing a brief. His says he has a history of hospital induced delirium with prior hospitalizations. * Continue delirium precautions * Will prescribe melatonin nightly scheduled at 1900, at least 2 hours before bedtime * Zyprexa odt available for breakthrough agitation Qualifiers: Altered mental status type: delirium Qualified Code(s): R41.0 - Disorientation, unspecified (3) Atrial fibrillation: Impression: Stable. Patient is still in atrial fibrillation, but rate controlled. Recall history of longstanding atrial fibrillation. He is on carvedilol and Eliquis * Back on carvedilol and anticoagulation as of this evening. Dispo: Stable for discharge, med ready. Plan for IPR. Patient and family would prefer [place] Qualifiers: Atrial fibrillation type: unspecified Qualified Code(s): I48.91 - Unspecified atrial fibrillation (4) Cystitis: Impression: On antibiotics, EOT 03/19 With culture-negative stroke, alternative etiologies of encephalopathy were explored. Urine was collected. It did show a meera urinary tract infection. With his mentation clearing, the patient was able to endorse dysuria that had been going on for 1 to 2 days prior to his hospitalization. He does not demonstrate any systemic signs of infection. Hemodynamically stable. No fevers. Notably his culture grew coag negative staph which is normally a contaminant. However his UA produced nitrites. This is more consistent Enterobacter. I do wonder if he has a true urinary tract infection with Enterobacter and then had contaminant with coag negative staph. * Will continue treating for 5 days for uncomp cystitis in a man, can transition to oral antibiotics at discharge
[2025-03-16] MEDS: LEVOTHYROXINE 25 MCG TABLET PO SCH (14:06)
--- NOTE | 2025-03-16 15:25 | Speech Therapy Plan of Care ---
DIAGNOSIS Date of Service Date of Service: 03/16/25 Diagnosis: CEREBROVASCULAR ACCIDENT MEDICAL/SURGICAL PAST HISTORY Past History Medical History (Updated 03/14/25 @ 16:34 by Johnny Abdul DO) TIA (transient ischemic attack) Lumbar compression fracture Obstruction of indwelling urinary catheter Closed fracture of cervical vertebra Injury of head and neck Fracture of nasal bone Concussion SPEECH ASSESSMENT Assessment: Mr. Stoddard was seen at bedside during lunchtime for clinical swallowing assessment. Upon LAR[employer] ANIMAL VETERINARIAN arrival, patient was attempting to exit the bed, stating he needed to urinate. Nursing staff was notified and assisted the patient with a urinal. He was then repositioned in an upright seated position in bed for the duration of the exam. The patient presents today with mild confusion following a reported right CVA. He was alert and cooperative throughout the session. He wore bilateral hearing aids, which appeared functional; however, occasional repetition at increased volume was necessary to support comprehension. Mr. Stoddard was oriented to self, situation, and month, though intermittent confusion was noted during the exam. He occasionally laughed inappropriately when uncertain of answers. Speech was mildly mumbled/dysarthic at times but mostly intelligible and articulate. He was able to recall some personal history and follow simple one-step commands, though visual models and repetition were occasionally neededparticularly during the oral mechanism exam. Spouse and pt report hx of mild dysphagia following tracheotomy for broken neck, some number of years ago. Pt avoids dry, crunchy textures because of this. Voice was dry but clear at baseline. No overt signs of dysphonia were noted. Swallowing Assessment: The following textures and consistencies were trialed during the meal: Ice chips 2 Teaspoon sip of water 1 Cup sips of water and coffee 8 Straw sips of water 5 Pudding 3 Soft/bite-sized fruit 1 Mechanically soft egg salad sandwich 2 Presentation of mild-moderate oral dysphagia was observed, characterized by: poor bolus cohesion, decreased oral transit efficiency, piecemeal oral residue throughout oral cavity post-swallow and delayed cough post-swallow, likely secondary to laryngeal penetration of residual material Patient required multiple sips of liquid and verbal cues to clear the oral cavity effectively. No immediate signs of aspiration (e.g., wet vocal quality, overt choking) were observed; however, risk remains elevated due to poor oral clearance and confusion impacting judgment during intake. During the meal, Mr. Stoddard demonstrated cognitive disorganization, including attempting to drink from a pudding cup containing a spoon, reflecting impaired safety awareness and highlighting the need for assistance at meals. Impression: Findings consistent with mild to moderate oral phase dysphagia and mild cognitive-communication deficits likely secondary to right CVA. Safety concerns are elevated due to both inefficient oral clearance and cognitive impairment, necessitating diet modification and mealtime supervision. Recommendations: Initiate pureed diet with thin liquids. Provide supervised assistance at meals with adherence to aspiration precautions. Continue [employer]IAN services for dysphagia management. Impression and recommendations were discussed with RN, Nutrition and spouse. [employer] VETERINARIAN to follow up for language and cognitive evaluation to further assess cognitive-linguistic deficits. CAREGIVER/PATIENT GOALS Patient/Caregiver Goals: Pt and spouse would like to return home and to previous diet when possible. SPEECH SHORT TERM GOALS 1: ST short term goal: Patient will safely consume the least restrictive diet as determined by ongoing assessment, demonstrating effective oral clearance and airway protection with supervision and minimal cues in 3 out of 4 opportunities over the next 57 days. SPEECH ALF GOALS 1: ST jail goal: Patient will safely consume an easy to chew diet with thin liquids, demonstrating functional oral intake, adequate airway protection, and independence with swallowing strategies and safety precautions, with minimal to no cues, within 4 weeks to support adequate nutrition and hydration. SPEECH PLAN OF CARE Treatment Duration: 6 weeks
--- NOTE | 2025-03-16 18:53 | OT Plan of Care ---
OT Inpatient POC Diagnosis DIAGNOSIS Diagnosis: CVA with negative MRI; a-fib Chief Complaint: R sided weakness and expressive aphasia Onset of Chief Complaint: BUTTON SEWER HAND on 03/14/25 MEDICAL/SURGICAL HISTORY Medical History (Updated 03/14/25 @ 16:34 by Johnny Abdul DO) TIA (transient ischemic attack) Lumbar compression fracture Obstruction of indwelling urinary catheter Closed fracture of cervical vertebra Injury of head and neck Fracture of nasal bone Concussion Assessment and Goals ASSESSMENT Assessment: The pt is an 89 y/o M who arrived to the ED on 03/14/25 due to word finding issues and R sided weakness, he was hospitalized with a CVA with negative MRI. Please see chart for complete medical hx. The pt was received resting comfortably in his recliner. He demonstrated poor processing of directions and questions as well as difficulty with proprioception through his right upper extremity. He demonstrated mildly decreased R sided MMT compared to L, impaired coordination of R UE. He requires increased assistance from his baseline with ADL completion. Pt. was impulsive demonstrating poor controlled lowering from standing during trf if not cued for safety. All of these limited his safety and tolerance during functional mobility. At this time recommend continued skilled OT intervention while in the acute setting and DC to IPR for further rehab once pt medically stable as the pt's baseline mobility was high level and his motivation/tolerance with the required participation is high. This plan was discussed with the pt and he was in agreement with this. At the end of the session the pt was sitting up in a chair with call light in reach, chair alarm in place and on, and all needs met while his was in the room. RN and Social Work updated on pt's status and DC rec. -Activities of Daily Living Improve Upper Extremity Dressing to:: Independent Improve Lower Extremity Dressing to:: Independent Improve Grooming/Hygiene to:: Independent Improve Bathing to:: Modified Independent Improve Toileting to:: Modified Independent OT Inpatient Plan PLAN Treatment Frequency: 1x/day Duration: Until goals are met -Discharge Recommendations Discharge Location: Inpatient Rehabilitation Recommended Equipment: Grab bars Transport Needs at Discharge: Wheelchair van
[2025-03-16] MEDS: APIXABAN 5 MG TABLET PO SCH (20:18)
[2025-03-16] MEDS: MELATONIN 3 MG TABLET PO SCH (20:18)
--- NOTE | 2025-03-16 21:34 | ECHO Report ---
Version: 1 Study ID: [id number] Adult Echocardiogram Report Name: EUGENIE GALICIA Study Date: 03/14/2025, 4: 52 PM [place] [facility] [place] 1935 (MM/DD/YYYY) Gender: Male Height: 68 in Age: 89 Years Weight: 182 lb BSA: 1.96 m² Reason For Study: CVA History: Saline contrast study ordered. Interpretation Summary Global left ventricular systolic function is normal. The visual left ventricular ejection fraction is estimated at 55 to 60%. The right ventricle is normal in size and function. The left atrium is severely dilated. The pulmonary artery systolic pressure is mildly increased. The right ventricular systolic pressure is 45mmHg Saline contrast is negative for Atrial septal shunt. Left Ventricle: The left ventricle is normal in size. There is normal left ventricular wall thickness. The visual left ventricular ejection fraction is estimated at 55 to 60%. Global left ventricular systolic function is normal. Right Ventricle: The right ventricle is normal in size and function. TAPSE is consistent with normal right ventricular function. The tricuspid annular plane systolic excursion (TAPSE) measurement is 1.7 cm. Aortic Valve: The aortic valve is normal in structure and function. The aortic valve is trileaflet. No hemodynamically significant valvular aortic stenosis. Trace aortic regurgitation is present. Mitral Valve: The mitral valve leaflets are mildly calcified. No evidence of mitral stenosis is seen. There is mild mitral regurgitation. Tricuspid Valve: The tricuspid valve is structurally normal. There is no tricuspid stenosis. Moderate tricuspid regurgitation present. Pulmonic Valve: The pulmonic valve is normal in structure and function. There is no pulmonic valvular stenosis. Trace pulmonic valvular regurgitation is present. Left Atrium: The left atrium is severely dilated. Right Atrium: The right atrium is mildly dilated. The inferior vena cava appears normal. Atrial Septum: Saline contrast is negative for Atrial septal shunt. Aorta: The ascending aorta is normal in size. The transverse arch is normal in size. Pulmonary Artery: The pulmonary artery is not well visualized, but is probably normal size. The pulmonary artery systolic pressure is mildly increased. Inferior vena cava dynamics indicate normal right atrial pressures. The right ventricular systolic pressure is 45mmHg. Pericardium/Pleural Space: There is no pericardial effusion. Left Ventricle IVSd: 0.96 cm LVIDd: 4.8 cm LVPWd: 0.87 cm LVIDs: 3.6 cm ESV(sp4-el): 204.7 ml Right Ventricle TAPSE: 1.70 cm RV S Britton: 11.9 cm/sec Atria LA dimension: 8.3 cm LAV(MOD-sp4): 222.2 ml LAV(MOD-sp2): 219.8 ml Aortic Valve LVOT diam: 2.15 cm LV V1 mean P.42 mmHg LV V1 mean: 73.6 cm/sec LV V1 VTI: 20.4 cm Ao V2 VTI: 26.7 cm Ao mean P.9 mmHg Ao V2 mean: 92.9 cm/sec LV V1 max: 104.1 cm/sec LV V1 max P.3 mmHg Ao max P.6 mmHg Ao V2 max: 128.7 cm/sec Mitral Valve MV max P.3 mmHg MV V2 max: 125.9 cm/sec MV mean P.16 mmHg MV V2 mean: 67.9 cm/sec MV V2 VTI: 23.6 cm Tricuspid Valve TR max P.2 mmHg TR max britton: 324.9 cm/sec TV max P.2 mmHg Aorta Ao root diam: 3.4 cm MMode/2D Measurements & Calculations Ao root diam: 3.4 cm BMI: 27.7 kilograms/m² BSA([facility]): 2.01 m² ESV(sp4-el): 204.7 ml IVSd: 0.96 cm LA A4C-A/L: 44.0 cm² LA dimension: 8.3 cm LA ESV-A/L: 187.3 ml LA Vol Index: 37.8 ml/m² LAV(MOD-sp2): 219.8 ml LAV(MOD-sp4): 222.2 ml LVIDd: 4.8 cm LVIDs: 3.6 cm LVOT diam: 2.15 cm LVPWd: 0.87 cm RA A4Cs: 23.5 cm² TAPSE: 1.70 cm Doppler Measurements & Calculations Ao max P.6 mmHg Ao mean P.9 mmHg Ao V2 max: 128.7 cm/sec Ao V2 mean: 92.9 cm/sec Ao V2 VTI: 26.7 cm LV V1 max: 104.1 cm/sec LV V1 max P.3 mmHg LV V1 mean: 73.6 cm/sec LV V1 mean P.42 mmHg LV V1 VTI: 20.4 cm MV max P.3 mmHg MV mean P.16 mmHg MV V2 max: 125.9 cm/sec MV V2 mean: 67.9 cm/sec MV V2 VTI: 23.6 cm PA max P.7 mmHg PA V2 max: 96.1 cm/sec RV S Britton: 11.9 cm/sec TR max P.2 mmHg TR max britton: 324.9 cm/sec TV max P.2 mmHg Other Measurements & Calculations Ao root area: 9.0 cm² RADHA(I,D): 2.8 cm² RADHA(V,D): 2.9 cm² EDV(Teich): 108.8 ml EF(sp-el): 50.0 % EF(Teich): 50.4 % ESV(Teich): 53.9 ml FS: 25.7 % LVOT area: 3.6 cm² MVA(VTI): 3.1 cm² SV(LVOT): 74.2 ml MD Teresa Weeks 03/16/2025, 9: 33 PM Ordering Physician: Johnny Abdul Referring Physician: Vaibhav Hernandez Performed By: [facility]
--- NOTE | 2025-03-17 09:45 | PROVIDER PROGRESS NOTE ---
Subjective Subjective Pt reports feeling: No change Subjective: Patient states he is feeling better. His expressive aphasia is improving. His right sided weakness has almost completely resolved. Last night, he did not receive Zyprexa, he did not experience any delirium. Diet: Dysphagia, pureed diet, thin liquid DVT: Eliquis Dispo: IPR, likely 03/18, awaiting bed/auth Code: Full Code Current Medications Current Medications Current Medications: Current Medications Generic Name Dose Route Start Last Admin Trade Name Freq PRN Reason Stop Dose Admin Acetaminophen 650 mg 03/15/25 17:48 03/15/25 18:08 Acetaminophen 325 Mg Tablet PO 650 mg Q4HR PRN Administration Pain or Fever > 38C (100.4F) Apixaban 5 mg 03/16/25 21:00 03/17/25 09:05 Apixaban 5 Mg Tablet PO 5 mg BID DIVINA Administration Atorvastatin Calcium 40 mg 03/15/25 21:00 03/16/25 20:18 Atorvastatin 40 Mg Tablet PO 40 mg QPM DIVINA Administration Carvedilol 3.125 mg 03/16/25 21:00 03/17/25 09:05 Carvedilol 3.125 Mg Tablet PO 3.125 mg BID DIVINA Administration Ceftriaxone Sodium 1 gm 03/15/25 09:00 03/17/25 09:05 Ceftriaxone 1 Gm Vial IVP 03/19/25 09:01 1 gm DAILY DIVINA Administration Labetalol HCl 10 mg 03/14/25 16:24 Labetalol 20 Mg/4 Ml Syringe IVP Q10M PRN SBP >220 OR DBP>120 Levothyroxine Sodium 50 mcg 03/16/25 12:00 03/17/25 06:33 Levothyroxine 25 Mcg Tablet PO 50 mcg 0700 DIVINA Administration Melatonin 3 mg 03/16/25 19:15 03/16/25 20:18 Melatonin 3 Mg Tablet PO 3 mg Q24H DIVINA Administration Metoprolol Tartrate 5 mg 03/14/25 16:53 Metoprolol 5 Mg/5 Ml Vial IVP Q6H PRN Sustained HR>120, notifkathryn [id number] Olanzapine 10 mg 03/16/25 19:14 Olanzapine Odt 5 Mg Tablet TL Q12H PRN agitation Ondansetron HCl 4 mg 03/14/25 16:24 Ondansetron 4 Mg/2 Ml Vial IVP Q6HR PRN Nausea / Vomiting Sodium Chloride 10 ml 03/14/25 17:00 03/17/25 09:06 Sodium Chloride Flush 0.9% 10 Ml Syringe IVP 10 ml 0100,0900,1700 DIVINA Administration Sodium Chloride 10 ml 03/14/25 16:24 Sodium Chloride Flush 0.9% 10 Ml Syringe IVP PRN PRN NEEDED PER PROVIDER ORDERS Objective Vital Signs/Intake & Output Reviewed Vital Signs: Yes Vital Signs: Vital Signs x48h Temp Pulse Resp BP Pulse Ox 03/17/25 08:55 97.7 F 88 18 135/92 H 97 Intake & Output: Intake & Output 03/14/25 03/15/25 03/16/25 03/17/25 23:59 23:59 23:59 23:59 Intake Total 1584 / 1584 960 / 960 240 / 240 Output Total 1100 / 1100 1170 / 1170 500 / 500 275 / 275 Balance -1100 / -1100 414 / 414 460 / 460 -35 / -35 Weight (kg) 76.5 kg Objective General Appearance: positive No acute distress and Alert; negative Anxious Eyes Bilateral: positive Normal inspection, PERRL and EOMI ENT: positive ENT inspection nml, Pharynx nml and No signs of dehydration Neck: positive Nml inspection, Thyroid nml and No JVD Respiratory: positive Chest non-tender, No respiratory distress and Breath sounds nml; negative Wheezes, Rales or Rhonchi Cardiovascular: positive No murmur, No gallop and Irregularly irregular; negative Tachycardia or Systolic murmur Abdomen: positive Non-tender, No organomegaly and No distention; negative Guarding or Splenomegaly Back: positive Nml inspection; negative CVA tenderness (R) or CVA tenderness (L) Skin: positive Color nml, No rash, Warm and Dry Extremities: positive Non-tender, Full ROM, Nml appearance and No pedal edema Neurologic/Psychiatric: positive Oriented x3, Motor nml, Mood/affect nml and Other (expressive aphasia ) Lab Results 03/15/25 05:42 03/14/25 14:55 Other Labs: Lab Results x24hrs 03/15/25 03/14/25 03/14/25 Range/Units 05:42 20:30 14:55 WBC 11.6 H 9.7 (4.8-10.8) x10^3/uL RBC 4.82 4.78 (4.70-6.10) 10^6/uL Hgb 14.8 14.4 (14.0-18.0) g/dL Hct 44.2 44.6 (42.0-52.0) % MCV 91.7 93.3 (80.0-94.0) fL MCH 30.7 30.1 (27.0-31.0) pg MCHC 33.5 32.3 (32.0-36.0) g/dL RDW 14.3 14.3 (12.0-15.0) % Plt Count 157 146 (130-450) 10^3/uL MPV 10.9 11.1 (7.4-11.4) fL Neut # (Auto) 7.5 H 5.8 (1.5-6.6) 10^3/uL Lymph # (Auto) 2.7 2.6 (1.5-3.5) 10^3/uL [place] # (Auto) 1.2 H 1.1 H (0.0-1.0) 10^3/uL Eos # (Auto) 0.1 0.2 (0.0-0.7) 10^3/uL Baso # (Auto) 0.1 0.0 (0.0-0.1) 10^3/uL Absolute Nucleated RBC 0.00 0.00 x10^3/uL Nucleated RBC % 0.0 0.0 /100WBC PT 16.4 H (9.9-12.6) secs INR 1.5 H (0.8-1.2) Sodium 137 (135-145) mmol/L Potassium 4.5 (3.5-4.5) mmol/L Chloride 106 (101-111) mmol/L Carbon Dioxide 28 (21-32) mmol/L Anion Gap 3.0 L (6-13) BUN 27 H (6-20) mg/dL Creatinine 1.1 (0.6-1.3) mg/dL Estimated GFR (MDRD) 63 L (>89) Glucose 94 (74-104) mg/dL Calcium 9.8 (8.5-10.3) mg/dL Total Bilirubin 0.6 (0.2-1.0) mg/dL AST 25 (10-42) IU/L ALT 21 (10-60) IU/L Alkaline Phosphatase 79 (42-121) IU/L Total Protein 6.6 (6.4-8.9) g/dL Albumin 3.6 (3.2-5.5) g/dL Globulin 3.0 (2.1-4.2) g/dL Albumin/Globulin Ratio 1.2 (1.0-2.2) Lipase 57 (11-82) U/L Urine Color YELLOW Urine Clarity CLEAR (CLEAR) Urine pH 7.5 (5.0-7.5) PH Ur Specific [place] 1.010 (1.002-1.030) Urine Protein NEGATIVE (NEGATIVE) mg/dL Urine Glucose (UA) NEGATIVE (NEGATIVE) mg/dL Urine Ketones NEGATIVE (NEGATIVE) mg/dL Urine Occult Blood TRACE-INTACT (NEGATIVE) Urine Nitrite POSITIVE H (NEGATIVE) Urine Bilirubin NEGATIVE (NEGATIVE) Urine Urobilinogen 0.2 (NORMAL) (NORMAL) E.U./dL Ur Leukocyte Esterase MODERATE H (NEGATIVE) Urine RBC 0-5 (0-5) /HPF Urine WBC >25 H (0-3) /HPF Urine WBC Clumps PRESENT Ur Squamous Epith Cells NONE SEEN (<= Few) Urine Bacteria Few (None Seen) /HPF Urine Culture Comments INDICATED Diagnostic Imaging Diagnostic Imaging Results: positive Final report reviewed and Read independently Assessment/Plan Problem List (1) Cerebrovascular accident (CVA): Impression: Continues to remain improved. He has mild right hemineglect, but no meera weakness. He has some word finding difficulty, but has intact receptive speech. No dysarthria. Recall that the patient had abrupt onset right-sided weakness and expressive aphasia that started at approximately 1330 on 03/14. He was seen in the ED within an hour of his symptom onset, however was not a candidate for acute intervention given that he is on a DOAC. MRI was completed on 03/14 in the evening. It does not show a clear infarct. Given that his symptoms did not resolve after 24 hours, this is likely an MRI negative stroke. He is improving slowly. His presentation and symptom distribution is all consistent with a small left lacunar infarct that was likely missed on the MRI conducted here. Initially suspicious for MCA territory. Presenting symptoms mostly ataxia in the right upper and lower extremity, expressive aphasia and anomia. No motor or speech issues. Right facial droop. Many of this is resolved. He passes bedside swallow on hospital day 1 and has a diet. Has been seen by speech, PT, OT. Recommendation for inpatient rehab. Started Eliquis again after 48 hours given small volume stroke. Discontinue permissive hypertension given small volume stroke after 48 hours. Resuming home carvedilol, 3.25 mg twice daily Will need outpatient neurology follow-up. Qualifiers: CVA mechanism: unspecified Qualified Code(s): I63.9 - Cerebral infarction, unspecified (2) Altered mental state: Impression: Resolved. Patient had hospital induced delirium on the evening of hospital day 1. He had agitation, possibly related to needing to void and not understanding that he was wearing a brief. His says he has a history of hospital induced delirium with prior hospitalizations. Continue delirium precautions. Will prescribe melatonin nightly scheduled at 1900, at least 2 hours before bedtime. Zyprexa odt available for breakthrough agitation. Qualifiers: Altered mental status type: delirium Qualified Code(s): R41.0 - Disorientation, unspecified (3) Atrial fibrillation: Impression: Stable. Patient is still in atrial fibrillation, but rate controlled. Resume carvedilol and anticoagulation as of this evening. Qualifiers: Atrial fibrillation type: unspecified Qualified Code(s): I48.91 - Unspecified atrial fibrillation (4) Cystitis: Impression: On antibiotics, EOT 03/19. Notably his culture grew coag negative staph which is normally a contaminant. However his UA produced nitrites. This is more consistent Enterobacter. I do wonder if he has a true urinary tract infection with Enterobacter and then had contaminant with coag negative staph. Will continue treating for 5 days for uncomp cystitis in a man, can transition to oral antibiotics at discharge.
[2025-03-17] MEDS: LACTOBACILLUS RHAMNOSUS GG CAPSULE PO ONE (20:06)
[2025-03-18 06:04] LABS: HCT - HEMATOCRIT 45.7 % (42.0-52.0); HGB - HEMOGLOBIN 15.0 g/dL (14.0-18.0); MEAN PLATELET VOLUME 11.4 fL (7.4-11.4); PLT - PLATELET COUNT 159.0 10^3/uL (130-450); RED CELL DISTRIBUTION WIDTH 14.6 % (12.0-15.0)
[2025-03-18 06:19] LABS: BUN - BLOOD UREA NITROGEN 47.0 mg/dL (6-20); CARBON DIOXIDE - CO2 25.0 mmol/L (21-32); CREATININE 1.6 mg/dL (0.6-1.3); GFR - MDRD 41.0 (>89)
[2025-03-18] MEDS: SODIUM CHLORIDE FLUSH 0.9% 10 ML SYRINGE IVP PRN (09:01)
--- NOTE | 2025-03-18 10:35 | Discharge Summary ---
"Discharge Summary Admit Date: 03/14/25 Discharge Date: 03/18/25 Discharging Provider: Dr. Tung Ferreira Primary Care Provider: Rickie Gomez Code Status: Attempt Resuscitation Discharge Facility Name: [facility] DIAGNOSES Discharge Diagnoses with Status of Each Condition: Acute CVAimproving. Remains with mild right hemineglect, no meera weakness. Has some word finding difficulty. Was not given TNK due to DOAC use at home. MRI did not show clear infarct, likely MRI negative stroke. Continue with physical therapy, Occupational Therapy, speech therapy at inpatient rehab. Eliquis was restarted. Continue atorvastatin. Altered mental stateresolved. Atrial fibrillationstable, resume carvedilol and Eliquis. Cystitiscompleted 5-day course of IV Rocephin. Urine culture is contaminated. Not having symptoms at this time. HPI History of Present Illness: Per Johnny Abdul: Mario Alberto Stoddard is an 89-year-old male with a past medical history notable for atrial fibrillation on anticoagulation, history of UTI, and a prior cervical vertebral fracture who presented with right sided deficits following a CVA. History is taken from the patient's , the patient is still having word finding difficulties with relation to his stroke. Patient's shares that they were driving home from shopping today. They went to [facility] and the day again. The patient was able to walk around both stores. He then proceeded to drive them home. When they got home, he would not get out of the car and she says he was somewhat irritated as they were driving home. These were his only symptoms at the time. When she went to further investigate, he had dense right sided deficits and right facial droop. He had some word finding difficulties starting at that time. He was brought in the ED, and code stroke was called. Given the fact that he is anticoagulated, he is not a candidate for thrombolysis. No LVO was seen on CTA, and therefore no acute intervention is recommended at this time. He is admitted to the hospital for secondary prophylaxis and therapy evaluations. CONSULTS | PROCEDURES Consultations: PT, OT, Speech Procedures: Head CT03/14moderate atrophy and chronic ischemic changes without hemorrhage. CT angiography head/neckno evidence of large vessel occlusion or aneurysm. 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 Brain MRImoderate atrophy and chronic ischemic changes without infarct, hemorrhage or mass lesion. HOSPITAL COURSE Hospital Course: Patient is a 89-year-old male with a history of atrial fibrillation on Eliquis who presented for right sided weakness, inattention, as well as expressive aphasia. Initial CT head, and CTA were negative. He was not a candidate for antithrombolytics due to his anticoagulation use. He was admitted for code stroke pathway, which included a TTE which was largely unremarkable, and negative for a atrial septal shunt. PT and OT did work with the patient, as well as speech therapy. He was placed on a dysphagia, pured diet. His deficits are slowly improving. Plan was made to transfer patient to inpatient rehab for further rehabilitation. ALLERGIES Allergies Allergy/AdvReac Type Severity Reaction Status Date / Time hazelnut Allergy Unknown Verified 03/14/25 15:06 MEDICATIONS Ambulatory Orders Medication Instructions Recorded Confirmed carvedilol 6.25 mg tablet 3.125 mg PO BID 03/15/25 levothyroxine 50 mcg tablet 50 mcg PO DAILY 03/15/25 0 03/15/25 apixaban 2.5 mg tablet (Eliquis) 2.5 mg PO BID #60 tab s 03/18/25 atorvastatin 40 mg tablet 40 mg PO QPM #30 tabs PHYSICAL EXAM AT DISCHARGE Vital Signs: Vital Signs x48h Temp Pulse Resp BP Pulse Ox 03/18/25 09:15 97.3 F L 83 20 129/81 96 03/18/25 08:38 16 General Appearance: positive No acute distress and Alert; negative Anxious Eyes Bilateral: positive Normal inspection, PERRL and EOMI ENT: positive ENT inspection nml, Pharynx nml and No signs of dehydration Neck: positive Nml inspection, Thyroid nml and No JVD Respiratory: positive Chest non-tender, No respiratory distress and Breath sounds nml; negative Wheezes, Rales or Rhonchi Cardiovascular: positive No murmur, No gallop and Irregularly irregular; negative Tachycardia or Systolic murmur Abdomen: positive Non-tender, No organomegaly and No distention; negative Guarding or Splenomegaly Back: positive Nml inspection; negative CVA tenderness (R) or CVA tenderness (L) Skin: positive Color nml, No rash, Warm and Dry Extremities: positive Non-tender, Full ROM, Nml appearance and No pedal edema Neurologic/Psychiatric: positive Oriented x3, Motor nml, Mood/affect nml and Other (expressive aphasia ) LABS 03/18/25 05:41 03/18/25 05:41 FOLLOW UP Follow Up: Follow up neurology. Follow up PCP. TIME SPENT Time Spent in Discharge (Minutes): 35 Discharge Plan Discharge Patient Disposition: 62 IRF DC/Xfer Condition: Stable Prescriptions: New atorvastatin 40 mg Tablet 40 mg PO QPM Qty: 30 0RF Eliquis 2.5 mg Tablet 2.5 mg PO BID Qty: 60 0RF Continued carvedilol 6.25 mg tablet 3.125 mg PO BID levothyroxine 50 mcg tablet 50 mcg PO DAILY Patient Comments: TAKE 1 TABLET BY MOUTH DAILY Discontinued Eliquis 5 MG tablet 5 mg PO BID Activity Restrictions: Activity as Tolerated Health Concerns: You came in because you are having some right sided weakness and inattention, as well as some difficulty expressing words. Although your imaging was negative for an acute stroke, we think what you may have had is something called an MRI negative stroke. It appears that your weaknesses are getting better with time, which is great. Rehabilitation will help fast-track this recovery. You also had a urinary tract infection, for which you completed an IV antibiotic course. We are glad you are feeling better, thank you for allowing us to take care of you. Print Language: Bengali Patient Instructions: Stroke: Resources and Support Stand Alone Forms: SNF Discharge, PCP List Follow-up Care: RICKIE GOMEZ MD [Primary Care Provider, Family Practice] Vitals documented within 30 minutes of discharge?: Yes"
[2025-03-18 12:06] VITALS: BP 108/72; TEMP 97.9; O2SAT 97
[2025-03-18] MEDS ORDERED: APIXABAN 2.5 MG TABLET PO SCH (21:00)
== END 2025-03-18 12:00 | DRG 65 ==
LOC: MS2 14:27 → ED 14:27 → MS2 16:16
PROVIDERS: ADMIT Student in an Organized Health Care Education/Training Program; ATTEND Student in an Organized Health Care Education/Training Program
DX: Z79.01 Long term (current) use of anticoagulants; R13.10 Dysphagia, unspecified; R47.01 Aphasia; R29.810 Facial weakness; N30.00 Acute cystitis without hematuria; R41.0 Disorientation, unspecified; I63.9 Cerebral infarction, unspecified; R29.705 NIHSS score 5; G81.91 Hemiplegia, unspecified affecting right dominant side; I48.91 Unspecified atrial fibrillation; R45.1 Restlessness and agitation